=== PATIENT | male | born 1960 | race African-American/Black ===

== ENCOUNTER → 2021-08-17 13:13 | Outpatient (BNVA) | payer OTHER, SELFPAY | PROVIDERS: PCP Internal Medicine; Visit Provider Psychiatry & Neurology Neurology | DX: R20.0 Anesthesia of skin (principal); R20.2 Paresthesia of skin; G25.81 Restless legs syndrome | CPT/HCPCS: 99202 ==

== ENCOUNTER → 2022-02-11 07:45 | Outpatient (BNVA) | payer OTHER, SELFPAY | PROVIDERS: PCP Internal Medicine; Visit Provider Psychiatry & Neurology Neurology | DX: G25.81 Restless legs syndrome (principal); R20.0 Anesthesia of skin; R20.2 Paresthesia of skin | CPT/HCPCS: 99212 ==

== ENCOUNTER → 2022-08-09 08:28 | Outpatient (BNVA) | payer OTHER, SELFPAY | PROVIDERS: PCP Internal Medicine; Visit Provider Nurse Practitioner Family | DX: R20.0 Anesthesia of skin (principal); R20.2 Paresthesia of skin; G25.81 Restless legs syndrome | CPT/HCPCS: 99212 ==

== ENCOUNTER 2023-03-02 09:00 | Outpatient (AMB) | payer OTHER, SELFPAY ==
--- NOTE | 2023-03-02 09:02 | A.OFFVIS_ITS ---
Intake Vital Signs 03/02/23 09:05 Weight 264 lb BP 128/82 Blood Pressure Location Lt brachial Position Sitting Intake Visit Reasons: 6 mnts f/u appt-LVM Intake Note: Patient presents for 6 month follow up. Patient states I still got numbness on the right leg all the way down. Allergies ibuprofen [From Motrin] Adverse Reaction (Mild, Verified 03/02/23 09:06) Gastrointestinal Upset percaset Adverse Reaction (Uncoded 03/02/23 09:06) upset stomach HPI HPI Comments History of Present Illness Details 61 y/o female with h/o diabetes for more than 25 years comes for follow up of her lower extremity numbness. Pt reports that gabapentin 300 mg qHS helps some restless legs at night and occasional shooting pain in her bilateral lower extremities. EMG was c/w right L5 S1 radiculopathy and left S 1 radiculopathy. Lumbar X ray result was no acute findings. There is degenerative disc disease at the L2-3, L3-4 and L5-S1 levels. She has arthritis of her back and was treated with cortisone shot 3 years ago. She denies any weakness. Her diabetes is well controlled. [facility] Medical History Arthritis Diabetes Glaucoma Heart attack HTN (hypertension) Hyperlipidemia Hyperlipidemia Obesity JAI on CPAP Restless legs syndrome (RLS) Thyroid activity decreased Vitamin D deficiency Surgical History Stented coronary artery Hx of heart surgery History of carpal tunnel release Family History Father Cancer Mother Heart disease HTN (hypertension) Brother HTN (hypertension) Sister Breast cancer Family/Other No problems noted. Social History Alcohol intake: never Patient Tobacco Use Status: Former Tobacco user Review of Systems Const All systems reviewed & are unremarkable except as noted in HPI and below Neuro Reports Sensory deficit (Neuro) Physical Exam Vital Signs: Last Vital Signs BP 128/82 03/02/23 09:05 Const General: cooperative, healthy appearing and comfortable Nutritional Appearance: obese Orientation/consciousness: patient oriented x3 HEENT Other: Mallampatti grade 4 Head: Yes normal to inspection and Yes normocephalic Eyes Pupils: Equal, round and reactive pupils present Neuro General: patient oriented x3, gait normal, tone normal, moves all extremities, no focal motor deficits and CN's II-XI intact bilaterally Cranial nerves: Yes Equal, round and reactive pupils present, Yes Bilaterally intact EOM present, Yes Nystagmus not present, Yes Normal facial strength present and Yes Midline tongue present Gait exam (Neuro): Normal gait present Motor exam (neuro): 5/5 motor strength present throughout, Pronator motor function not present, no tremor noted and Normal motor muscle tone present throughout Sensory Exam: Sensory deficit (Neuro) and Abnormal lower extremity sensory exam Deep tendon reflexes (DTR's): Right triceps reflex intensity grade: 1+, Left triceps reflex intensity grade: 1+, Rt Biceps (C5, C6): 1+, Left biceps reflex intensity grade: 1+, Right brachioradialis reflex intensity grade: 1+, Left brachioradialis reflex intensity grade: 1+, Right patellar reflex intensity grade: 1+, Left patellar reflex intensity grade: 1+, Right ankle reflex intensity grade: 0 and Left ankle reflex intensity grade: 0 Coordination: [id number] test normal Psych Appearance: grossly normal Mental Status: mental status grossly normal Speech and movement: Normal speech and movement present Assessment & Plan Assessment & Plan (1) Restless legs syndrome (RLS): Code(s): G25.81 - Restless legs syndrome (2) Numbness and tingling of both feet: Code(s): R20.0 - Anesthesia of skin; R20.2 - Paresthesia of skin Plan Discussed EMG and lumbar X ray results. Continue to take gabapentin 100mg 3 tabs qHS. Advised patient to check labs, vitamin B12 and folate to check any dificiency. Advised well diabetes control. Orders: Orders Vitamin B12 and Folate 03/02/23 G25.81 - Restless legs syndrome, R20.0 - Anesthesia of skin, R20.2 - Paresthesia of skin Coding Level of Care Code Est Pt Level 3 (46219) Diagnoses Restless legs syndrome (RLS) G25.81 Numbness and tingling of both feet R20.0; R20.2
[2023-03-02 09:05] VITALS: BP 128/82
== END 2023-03-02 09:28 | disposition home or self-care (01) ==
PROVIDERS: PCP Internal Medicine; Visit Provider Nurse Practitioner Family
DX: G25.81 Restless legs syndrome (principal); R20.0 Anesthesia of skin; R20.2 Paresthesia of skin
CPT/HCPCS: 99213

== ENCOUNTER → 2023-03-02 09:00 | Outpatient (BNVA) | payer OTHER, SELFPAY | PROVIDERS: PCP Internal Medicine; Visit Provider Nurse Practitioner Family | DX: G25.81 Restless legs syndrome (principal); R20.0 Anesthesia of skin; R20.2 Paresthesia of skin | CPT/HCPCS: 99212 ==

== ENCOUNTER 2023-09-01 08:30 | Outpatient (AMB) | payer OTHER, SELFPAY ==
--- NOTE | 2023-09-01 08:50 | A.OFFVIS_ITS ---
Vital Signs 09/01/23 08:56 Height 5 ft 5 in Weight 275 lb BMI 45.8 BP 132/80 Blood Pressure Location Lt brachial Position Sitting Pulse 78 Pulse Source Pulse Oximeter Pulse Oximetry (%) 100 Oxygen Delivery Method Room Air Intake Visit Reasons: 6 mo f/u Lower extremities numbness -LVM w/add Intake Note: Patient presents for 6 months f/u. still having numbness on both legs but right side is worse. Allergies ibuprofen [From Motrin] Adverse Reaction (Mild, Verified 03/02/23 09:06) Gastrointestinal Upset percaset Adverse Reaction (Uncoded 03/02/23 09:06) upset stomach HPI Comments Details: 62 y/o female with h/o diabetes for follow up of her lower extremity numbness and restless legs. Pt reports that gabapentin 300 mg qHS helps some restless legs at night and occasional shooting pain in her bilateral lower extremities. However, she still has occasional numbness when she walks long distance. EMG was c/w right L5 S1 radiculopathy and left S 1 radiculopathy. Lumbar X ray result was no acute findings. There is degenerative disc disease at the L2-3, L3-4 and L5-S1 levels. She has arthritis of her back and was treated with cortisone shot 3 years ago. Her back pain has improved after the cortisone injection and did not need to have repeat injection. She denies any weakness. Her diabetes is well controlled. She reports she has hx of sleep apnea and compliant with CPAP. [facility] Medical History Arthritis Diabetes Glaucoma Heart attack HTN (hypertension) Hyperlipidemia Hyperlipidemia Obesity JAI on CPAP Restless legs syndrome (RLS) Thyroid activity decreased Vitamin D deficiency Surgical History Stented coronary artery Hx of heart surgery History of carpal tunnel release Family History Father Cancer Mother Heart disease HTN (hypertension) Brother HTN (hypertension) Sister Breast cancer Family/Other No problems noted. Social History Alcohol intake: never Patient Tobacco Use Status: Former Tobacco user Review of Systems Const All systems reviewed & are unremarkable except as noted in HPI and below Neuro Reports Sensory deficit (Neuro) Physical Exam Vital Signs: Last Vital Signs Pulse 78 09/01/23 08:56 BP 132/80 09/01/23 08:56 Pulse Ox 100 09/01/23 08:56 Oxygen Delivery Method Room Air 09/01/23 08:56 BMI result Body Mass Index 45.8 Const General: cooperative, healthy appearing and comfortable Nutritional Appearance: obese Orientation/consciousness: patient oriented x3 HEENT Other: Mallampatti grade 4 Head: Yes normal to inspection and Yes normocephalic Eyes Pupils: Equal, round and reactive pupils present Neuro General: patient oriented x3, gait normal, tone normal, moves all extremities, no focal motor deficits and CN's II-XI intact bilaterally Cranial nerves: Yes Equal, round and reactive pupils present, Yes Bilaterally intact EOM present, Yes Nystagmus not present, Yes Normal facial strength present and Yes Midline tongue present Gait exam (Neuro): Normal gait present Motor exam (neuro): 5/5 motor strength present throughout, Pronator motor function not present, no tremor noted and Normal motor muscle tone present throughout Sensory Exam: Sensory deficit (Neuro) and Abnormal lower extremity sensory exam Deep tendon reflexes (DTR's): Right triceps reflex intensity grade: 1+, Left triceps reflex intensity grade: 1+, Rt Biceps (C5, C6): 1+, Left biceps reflex intensity grade: 1+, Right brachioradialis reflex intensity grade: 1+, Left brachioradialis reflex intensity grade: 1+, Right patellar reflex intensity grade: 1+, Left patellar reflex intensity grade: 1+, Right ankle reflex intensity grade: 0 and Left ankle reflex intensity grade: 0 Coordination: [id number] test normal Psych Appearance: grossly normal Mental Status: mental status grossly normal Speech and movement: Normal speech and movement present Assessment & Plan Assessment & Plan (1) Restless legs syndrome (RLS): Code(s): G25.81 - Restless legs syndrome Category: Medical (2) Numbness and tingling of both feet: Code(s): R20.0 - Anesthesia of skin; R20.2 - Paresthesia of skin Category: Medical Plan Continue to take gabapentin 100mg 3 tabs qHS. Advised well diabetes control. Wt reduction advised. Medications: Refilled gabapentin 100 - 300 mg (1 - 3 x 100 mg) PO BEDTIME 90 caps 6RF Coding Level of Care Code Est Pt Level 3 (37116) Diagnoses Restless legs syndrome (RLS) G25.81 Numbness and tingling of both feet R20.0; R20.2
[2023-09-01 08:56] VITALS: BP 132/80; PULSE 78; O2SAT 100; BMI 45.8
== END 2023-09-01 09:11 | disposition home or self-care (01) ==
PROVIDERS: PCP Internal Medicine; Visit Provider Nurse Practitioner Family
DX: G25.81 Restless legs syndrome (principal); R20.0 Anesthesia of skin; R20.2 Paresthesia of skin
CPT/HCPCS: 99213

== ENCOUNTER → 2023-09-01 08:30 | Outpatient (BNVA) | payer OTHER, SELFPAY | PROVIDERS: PCP Internal Medicine; Visit Provider Nurse Practitioner Family | DX: G25.81 Restless legs syndrome (principal); R20.0 Anesthesia of skin; R20.2 Paresthesia of skin | CPT/HCPCS: 99212 ==

== ENCOUNTER 2024-03-08 08:47 | Outpatient (AMB) | payer OTHER, SELFPAY ==
--- NOTE | 2024-03-08 08:58 | A.OFFVIS_ITS ---
Vital Signs 03/08/24 08:59 Height 5 ft 5 in Weight 280 lb BMI 46.6 BP 154/86 H Blood Pressure Location Rt brachial Position Sitting Intake Visit Reasons: 6 month F/U Intake Note: Patient presents for follow up still getting numbness, spasms. Allergies ibuprofen [From Motrin] Adverse Reaction (Mild, Verified 03/08/24 09:05) Gastrointestinal Upset percaset Adverse Reaction (Uncoded 03/08/24 09:05) upset stomach Medication List - Last Reconciled 03/08/24 by ENOC Rutherford aspirin (Adult Low Dose Aspirin) 81 mg PO DAILY blood-glucose meter ([employer] [place] Lite kit) As directed coenzyme Q10 (Ultra CoQ10) 100 mg PO DAILY gabapentin 100 - 300 mg (1 - 3 x 100 mg) PO BEDTIME labetalol 300 mg PO BID labetalol 100 mg PO ONCE lancets (FreeStyle Lancets) As directed latanoprost 0.005% (Xalatan) 1 drp ophthalmic (eye) DAILY levothyroxine 50 mcg PO DAILY lisinopril 40 mg PO DAILY metformin 500 mg PO DAILY nifedipine ER 60 mg PO DAILY rosuvastatin (Crestor) 40 mg PO DAILY HPI Comments Details: 63 y/o female with h/o diabetes for follow up of her lower extremity numbness and restless legs. Pt denies any significant interval medical changes. States her home blood sugars are WNL, but last HgA1C was 6.9%. Is still compliant w/ home CPAP- managed by Dr Altamirano. Pt states did previous labs at [facility]- but I am unable to see any relevant results in her [facility] portal. She describes her restless legs as BLE legs and feet pins and needles and bee sting/stabbing, as well as numbness. She cannot not sit still for prolonged periods. Her feet easily fall asleep or become numb when walking or doing the dishes. She has fallen because her foot has gone numb while walking. She can feel off-balance when her eyes are closed. Does have bothersome low back pain- tends to stay in the center of low back- not worse in any particular position. Endorses BLE R > L - weakness at times. Has not done PT specifically for her back. Endorses constipation. Denies B&B incontinence. Using Gabapentin 100mg qam and 200mg qhs. Gapapentin helps w/ the apin s/s but not the numbness. She wonders if this is causing her to shake- she finds herself shaking when writing or carrying something. Her mother aunt, and now sister shake. Pt does not drink alcohol- thus does not know if tremor is alcohol responsive. Previous work-up and tx: 11/27/2021: EMG was c/w right L5 S1 radiculopathy and left S 1 radiculopathy. 02/12/2022: Lumbar X ray result was no acute findings. There is degenerative disc disease at the L2-3, L3-4 and L5-S1 levels. She has arthritis of her back and was treated with cortisone shot several yrs ago, was previously helpful where she could move better w/o the pain. [facility] Medical History (Updated 03/08/24 @ 14:48 by ENOC Rutherford) Anemia Restless legs syndrome (RLS) Heart attack Thyroid activity decreased Hyperlipidemia Arthritis Obesity Vitamin D deficiency Hyperlipidemia Glaucoma HTN (hypertension) JAI on CPAP Diabetes Surgical History Stented coronary artery Hx of heart surgery History of carpal tunnel release Family History Father Cancer Mother Heart disease HTN (hypertension) Brother HTN (hypertension) Sister Breast cancer Family/Other No problems noted. Social History Alcohol intake: never Patient Tobacco Use Status: Former Tobacco user Physical Exam Vital Signs: Last Vital Signs BP 154/86 H 03/08/24 08:59 BMI result Body Mass Index 46.6 Const General: cooperative, healthy appearing and comfortable Nutritional Appearance: obese Orientation/consciousness: patient oriented x3 HEENT Other: Mallampatti grade 4 Head: Yes normal to inspection and Yes normocephalic Neuro Other: FFM intact. Lower lumbar spinal tenderness-. BLE MS 5/5 BLE R > L ankle tightness Stands slowly. Mild antalgic gait- slight right high step. General: patient oriented x3 and CN's II-XI intact bilaterally Cranial nerves: Yes CN's II-XII intact bilaterally Motor exam (neuro): 5/5 motor strength present throughout and no tremor noted Deep tendon reflexes (DTR's): Right patellar reflex intensity grade: 1+ and Left patellar reflex intensity grade: 1+ Psych Appearance: grossly normal Mental Status: mental status grossly normal Speech and movement: Normal speech and movement present Assessment & Plan Assessment & Plan (1) Numbness and tingling of both feet: Code(s): R20.0 - Anesthesia of skin; R20.2 - Paresthesia of skin Category: Medical (2) Low back pain: Code(s): M54.50 - Low back pain, unspecified Category: Medical (3) Low back pain: Code(s): M54.50 - Low back pain, unspecified Category: Medical (4) Tremor: Code(s): R25.1 - Tremor, unspecified Category: Medical Plan For BLE neuropathic pain, numbness and low back pain: Will increase Gabapentin to 200mg qam and 200-300mg qhs- may help tremor as well. XR Lumbar. Check labs for common etiologies of paresthesias and numbness. PT eval & tx for low back pain and BLE tightness- may help w/ numbness triggered by walking etc. For tremor: Will monitor. Try using weighted/thicker writing utensils. Orders: Orders Creatine Kinase Total Today D64.9 - Anemia, unspecified, R20.0 - Anesthesia of skin, R20.2 - Paresthesia of skin, R25.2 - Cramp and spasm Comprehensive Met. Panel Today D64.9 - Anemia, unspecified, R20.0 - Anesthesia of skin, R20.2 - Paresthesia of skin, R25.2 - Cramp and spasm Magnesium Today D64.9 - Anemia, unspecified, R20.0 - Anesthesia of skin, R20.2 - Paresthesia of skin, R25.2 - Cramp and spasm IRON PROFILE Today D64.9 - Anemia, unspecified, R20.0 - Anesthesia of skin, R20.2 - Paresthesia of skin, R25.2 - Cramp and spasm Vitamin B12 and Folate Today D64.9 - Anemia, unspecified, R20.0 - Anesthesia of skin, R20.2 - Paresthesia of skin, R25.2 - Cramp and spasm Vitamin B6 Today D64.9 - Anemia, unspecified, R20.0 - Anesthesia of skin, R20.2 - Paresthesia of skin, R25.2 - Cramp and spasm CRP High Sensitivity Today D64.9 - Anemia, unspecified, R20.0 - Anesthesia of skin, R20.2 - Paresthesia of skin, R25.2 - Cramp and spasm Homocysteine Today D64.9 - Anemia, unspecified, R20.0 - Anesthesia of skin, R20.2 - Paresthesia of skin, R25.2 - Cramp and spasm XR lumbar spine 2-3V Today M54.50 - Low back pain, unspecified Ferritin Today D64.9 - Anemia, unspecified, R20.0 - Anesthesia of skin, R20.2 - Paresthesia of skin, R25.2 - Cramp and spasm Complete Blood Count Auto Diff Today D64.9 - Anemia, unspecified, R20.0 - Anes thesia of skin, R20.2 - Paresthesia of skin, R25.2 - Cramp and spasm Erythrocyte Sedimentation Rate Today D64.9 - Anemia, unspecified, R20.0 - Anesthesia of skin, R20.2 - Paresthesia of skin, R25.2 - Cramp and spasm Methylmalonic Acid Today D64.9 - Anemia, unspecified, R20.0 - Anesthesia of skin, R20.2 - Paresthesia of skin, R25.2 - Cramp and spasm PT Evaluation and Treatment Today M54.50 - Low back pain, unspecified, R20.0 - Anesthesia of skin, R20.2 - Paresthesia of skin Medications: Changed From gabapentin 100 - 300 mg (1 - 3 x 100 mg) PO BEDTIME 90 caps 6RF To gabapentin 200mg qam and 300mg at bedtime orally 2 times a day; 30 days 150 caps 6RF Coding Level of Care Code Est Pt Level 4 (61276) Diagnoses Numbness and tingling of both feet R20.0; R20.2 Low back pain M54.50 Tremor R25.1
[2024-03-08 08:59] VITALS: BP 154/86; BMI 46.6
== END 2024-03-08 10:00 | disposition home or self-care (01) ==
LOC: HO.HSMS 08:48
PROVIDERS: PCP Internal Medicine; Visit Provider Nurse Practitioner Family
DX: R20.0 Anesthesia of skin (principal); R20.2 Paresthesia of skin; M54.50 Low back pain, unspecified; R25.1 Tremor, unspecified
CPT/HCPCS: 99214

== ENCOUNTER → 2024-03-08 08:47 | Outpatient (BNVA) | payer OTHER, SELFPAY | PROVIDERS: PCP Internal Medicine; Visit Provider Nurse Practitioner Family | DX: M54.50 Low back pain, unspecified (principal); R25.1 Tremor, unspecified; R20.0 Anesthesia of skin; R20.2 Paresthesia of skin | CPT/HCPCS: 99212 ==

== ENCOUNTER 2024-03-30 09:40 | Outpatient (REF) | payer OTHER, SELFPAY ==
--- NOTE | ~2024-03-30 | XR_ITS ---
EXAMINATION: XR LUMBAR SPINE CLINICAL INFORMATION: Low back pain, unspecified M54.50. COMPARISON: None available TECHNIQUE: Three views of the lumbosacral spine. FINDINGS: Vertebral body heights are preserved without evidence of compression deformity. Moderate to severe degenerative disc disease greatest at L5-S1 and L3-L4. Facet arthropathy throughout the lumbar spine greatest in the lower lumbar spine. Multilevel bony spurring. Degenerative changes in the sacroiliac joints. XR/XR lumbar spine 2-3V IMPRESSION: Moderate to severe degenerative disc disease greatest at L5-S1 and L3-L4. Electronically signed by: Campbell Vazquez MD 05/01/2024 09:58 AM [facility]
[2024-03-30 10:50] LABS: MANUAL DIFF FLAG NO
[2024-03-30 11:42] LABS: Hematocrit 40.2 % (37.0-47.0); Hemoglobin 12.8 g/dl (12.0-16.0); Mean Corpuscular HGB Conc 31.8 g/dl (31.0-35.0); Mean Corpuscular Hemoglobin 28.7 pg (27.0-33.0); Mean Corpuscular Volume 90.1 fL (80.0-98.0); Red Blood Count 4.46 X10*6/uL (4.20-5.50); White Blood Count 5.4 X10*3/uL (4.8-10.8)
[2024-03-30 11:43] LABS: Basophils Absolute Auto 0.1 X10*3/uL (0.0-0.2); Basophils Percent Auto 1.1 % (0-2); Eosinophils Absolute Auto 0.3 X10*3/uL (0.0-0.4); Eosinophils Percent Auto 5.1 % (0-4); Imm Gran Abs Auto 0.01 X10*3/uL (0.00-0.03); Imm Gran Pct Auto 0.2 % (0.0-0.4); Lymphocytes Absolute Auto 1.5 X10*3/uL (1.2-4.9); Mean Platelet Volume 11.4 fL (9.4-12.3); Monocytes Absolute Auto 0.6 X10*3/uL (0.1-1.2); Monocytes Percent Auto 11.2 % (2-11); Neutrophils Percent Auto 55.4 % (45-73); Platelet Count 282 X10*3/uL (160-400); Red Cell Distribution Width 15.3 % (11.0-16.0)
[2024-03-30 12:20] LABS: Alanine Aminotransferase 36 U/L (0-31); Albumin Level 4.3 g/dL (3.5-5.0); Alkaline Phosphatase 74 U/L (39-117); Anion Gap 12 (12-20); Aspartate Amino Transferase 31 U/L (5-31); Bilirubin Total 0.4 mg/dL (0.0-1.0); Blood Urea Nitrogen 11 mg/dL (9-16); Calcium 9.6 mg/dL (8.4-10.2); Carbon Dioxide 26 mmol/L (22-29); Chloride 105 mmol/L (96-108); Estimated Glomerular Filt Rate > 60; Glucose Random 106 mg/dL (60-115); Iron 80 mcg/dL (30-160); Magnesium 2.1 mg/dL (1.6-2.6); Percent Iron Saturation 35 % (15-50); Potassium 4.2 mmol/L (3.3-5.1); Sodium 139 mmol/L (135-145); Total Iron Binding Capacity 228 mcg/dL (228-428); Total Protein 7.3 g/dL (6.5-8.0); Unsaturated Iron Binding 148 ug/dL
[2024-03-30 12:32] LABS: Erythrocyte Sedimentation Rate 23 MM/HR (0-20)
[2024-03-30 12:36] LABS: Ferritin 289 ng/mL (10-250)
[2024-03-30 12:44] LABS: Folate 8.4 ng/mL (> or = 4.0); Vitamin B12 993 pg/mL (200-900)
[2024-04-02 08:29] LABS: CRP High Sensitivity 5.9 mg/L
[2024-04-02 17:04] LABS: Homocysteine 11.7 umol/L (<10.4)
[2024-04-04 12:23] LABS: Methylmalonic Acid 97 nmol/L (69-390)
[2024-04-07 16:44] LABS: Vitamin B6 4.8 ng/mL (2.1-21.7)
== END 2024-03-30 09:41 | disposition home or self-care (01) ==
LOC: HO.HMGCX 09:40
PROVIDERS: PCP Internal Medicine; Visit Provider Nurse Practitioner Family
DX: M54.50 Low back pain, unspecified (principal); D64.9 Anemia, unspecified; R25.2 Cramp and spasm; R20.0 Anesthesia of skin; R20.2 Paresthesia of skin; M51.369 Other intervertebral disc degeneration, lumbar region without mention of lumbar back pain or lower extremity pain; M51.379 Other intervertebral disc degeneration, lumbosacral region without mention of lumbar back pain or lower extremity pain
CPT/HCPCS: 36415; 72100; 80053; 82550; 82607; 82728; 82746; 83090; 83540; 83735; 83921; 84207; 85025; 85652; 86141

== ENCOUNTER 2024-09-20 10:21 | Outpatient (AMB) | payer OTHER, SELFPAY ==
[2024-09-20 10:29] VITALS: BP 170/60; PULSE 89; O2SAT 97; BMI 47.3
--- NOTE | 2024-09-20 10:29 | A.OFFVIS_ITS ---
Vital Signs 09/20/24 10:29 Height 5 ft 5 in Weight 284 lb BMI 47.3 BP 170/60 H Blood Pressure Location Lt brachial Position Sitting Pulse 89 Pulse Source Pulse Oximeter Pulse Oximetry (%) 97 Oxygen Delivery Method Room Air Intake Visit Reasons: Follow Up 4mo Intake Note: Patient presents follow up for numbness and muscle spasms [employer] Required: No Accompanied by: Self / Same As Patient Allergies ibuprofen [From Motrin] Adverse Reaction (Mild, Verified 09/20/24 10:32) Gastrointestinal Upset percaset Adverse Reaction (Uncoded 03/08/24 09:05) upset stomach Medication List - Last Reconciled 09/20/24 by ENOC Rutherford aspirin (Adult Low Dose Aspirin) 81 mg PO DAILY blood-glucose meter ([employer] [place] Lite kit) As directed coenzyme Q10 (Ultra CoQ10) 100 mg PO DAILY gabapentin 200mg qam and 300mg at bedtime orally 2 times a day; 30 days labetalol 300 mg PO BID labetalol 100 mg PO ONCE lancets (FreeStyle Lancets) As directed latanoprost 0.005% (Xalatan) 1 drp ophthalmic (eye) DAILY levothyroxine 50 mcg PO DAILY lisinopril 40 mg PO DAILY metformin 500 mg PO DAILY nifedipine ER 60 mg PO DAILY rosuvastatin (Crestor) 40 mg PO DAILY HPI Comments Details: 63 y/o female with h/o diabetes for follow up of her lower extremity numbness and restless legs. 03/30/2024, XR/XR lumbar spine 2-3V: Moderate to severe degenerative disc disease greatest at L5-S1 and L3-L4. 03/30/2024 interval lab work, showed: * CBC within normal limits * ESR 23 elevated * CMP within normal limits * Ferritin 289 slightly elevated, with normal iron studies * CK 409, elevated * High sensitivity CRP 5.9, elevated * Vitamin B12 993 * Folate 8.4 * Vitamin B6 4.8 * Homocystine 11.7, slightly elevated Pt denies any significant interval medical changes. Her BP is elevated today- 170/60- states she took her home BP meds this am. Her BP is prone to being variable. Is still compliant w/ home CPAP- managed by Dr Altamirano. Sleeps w/ 1.5 pillows- for her back and her breathing. Denies SOB, chest pain, palpitations, peripheral swelling. She continues to have BLE restless leg symptoms- feet pins and needles and bee sting/stabbing, numbness, leg cramps, restlessness- she cannot not sit still for prolonged periods. Her feet easily fall asleep or become numb when walking or doing the dishes. She can feel off-balance when her eyes are closed. She does not have calf cramps while walking. Does have bothersome low back pain- tends to stay in the center of low back- not worse in any particular position. Endorses BLE R > L - weakness at times. Endorses constipation. Denies B&B incontinence. Tremor is stable- intermittent, more so when writing or carrying something heavier. Pt does not drink alcohol- thus does not know if tremor is alcohol responsive. She increased Gabapentin to 200mg qam and 300mg at 7:30-8pm- has not seemed the muscle cramps/spasms- which start 10-20 minutes after laying down. Typical bedtime varies between 8-9pm, and wake-up time 5-6am. She started PT- not sure if it is helping yet. Previous work-up and tx: 11/27/2021: EMG was c/w right L5 S1 radiculopathy and left S 1 radiculopathy. 02/12/2022: Lumbar X ray result was no acute findings. There is degenerative disc disease at the L2-3, L3-4 and L5-S1 levels. She has arthritis of her back and was treated with cortisone shot several yrs ago, was previously helpful where she could move better w/o the pain. [facility] Medical History (Updated 03/08/24 @ 14:48 by ENOC Rutherford) Anemia Restless legs syndrome (RLS) Heart attack Thyroid activity decreased Hyperlipidemia Arthritis Obesity Vitamin D deficiency Hyperlipidemia Glaucoma HTN (hypertension) JAI on CPAP Diabetes Surgical History Stented coronary artery Hx of heart surgery History of carpal tunnel release Family History Father Cancer Mother Heart disease HTN (hypertension) Brother HTN (hypertension) Sister Breast cancer Family/Other No problems noted. Social History (Reviewed 09/20/24 @ 10:30 by ROBBIN Molina Alcohol intake: never Patient Tobacco Use Status: Former Tobacco user Physical Exam Vital Signs: Last Vital Signs Pulse 89 09/20/24 10:29 BP 170/60 H 09/20/24 10:29 Pulse Ox 97 09/20/24 10:29 Oxygen Delivery Method Room Air 09/20/24 10:29 BMI result Body Mass Index 47.3 Const General: cooperative, healthy appearing and comfortable Nutritional Appearance: obese Orientation/consciousness: patient oriented x3 HEENT Other: Mallampatti grade 4 Head: Yes normal to inspection and Yes normocephalic Resp Effort & Inspection: normal respiratory effort and able to speak in complete sentences Auscultation: clear to auscultation bilaterally Cardio Rate: regular rate Rhythm: regular rhythm Neuro Other: FFM intact. No postural or rest tremor appreciated. General: patient oriented x3 and CN's II-XI intact bilaterally Cranial nerves: Yes CN's II-XII intact bilaterally Motor exam (neuro): 5/5 motor strength present throughout and no tremor noted Psych Appearance: grossly normal Mental Status: mental status grossly normal Speech and movement: Normal speech and movement present Assessment & Plan Assessment & Plan (1) Restless legs syndrome (RLS): Code(s): G25.81 - Restless legs syndrome Category: Medical (2) HTN (hypertension): Code(s): I10 - Essential (primary) hypertension Category: Medical (3) Numbness and tingling of both feet: Code(s): R20.0 - Anesthesia of skin; R20.2 - Paresthesia of skin Category: Medical (4) Low back pain: Code(s): M54.50 - Low back pain, unspecified Category: Medical (5) Tremor: Code(s): R25.1 - Tremor, unspecified Category: Medical (6) Muscle cramps: Code(s): R25.2 - Cramp and spasm Category: Medical Plan For HTN: On BP recheck, with patient sitting quietly for greater than 5 minutes, BP is still 170/60s. Patient advised to take extra half tab of lisinopril today. Advised to seek medical attention she develops any chest pain, shortness of breath, or other red flag symptoms. We will take the liberty of referring patient back to nephrology for BP management. For BLE neuropathic pain, numbness, muscle cramps-,- and low back pain: Reviewed labs, no significant findings to account for patient's symptoms. Reviewed XR lumbar spine- Moderate to severe degenerative disc disease greatest at L5-S1 and L3-L4. Will increase Gabapentin from 200mg qam and 300mg qhs to 200mg bid at 6am and 6pm and 300mg q8pm- may help tremor as well. Start magnesium 400 mg daily at 12pm- to avoid taking it directly with gabapentin. Continue PT tx for low back pain and BLE tightness- may help w/ numbness triggered by walking etc. For tremor: Will monitor. May try using weighted/thicker writing utensils. Orders: Referrals Nephrology Referral I10 - Essential (primary) hypertension Medications: New gabapentin at 8pm 300 mg PO BEDTIME 30 caps 6RF 30 days magnesium oxide at 12pm, may hold for loose stools 400 mg PO DAILY 30 tabs 6RF 30 days Changed From gabapentin 200mg qam and 300mg at bedtime orally 2 times a day; 30 days 150 caps 6RF To gabapentin at 6am and 6pm 200 mg (2 x 100 mg) PO BID 120 caps 6RF 30 days Coding Level of Care Code Est Pt Level 4 (38027) Diagnoses Restless legs syndrome (RLS) G25.81 HTN (hypertension) I10 Numbness and tingling of both feet R20.0; R20.2 Low back pain M54.50 Tremor R25.1 Muscle cramps R25.2
--- OUTSIDE RECORDS SUMMARY | 2024-09-20 11:26 | XMS_ITS ---
[facility] Address [address] [place] [address] Care Team Providers Care Senior Sql Developer Name Role Phone Humberto Sarabia Primary Care Provider Anthony Diop [phone] REASON FOR VISIT Foot pain Encounters Encounter Location Date [facility] [address] [place] [phone] 05/04/2024 Anthony Morrow Plan Of Treatment Next Appt Details Provider Name:Anthony Morrow , 11/21/2024 08:30:00 AM, [address], [address], Progress Notes * Nancy MORALES LDOB:[birth year] (63 yo F)Acc No.[id number]:05/04/2024 Patient:?MARGARET Nancy Coyle :1960???Age:63 Y???Sex:Female Address:[address] [place] [address], [phone] * true * Date:? Generated for Careyi miriam/Raymond/eTransmitting on:?09/20/2024 11:26 AM EDT
--- OUTSIDE RECORDS SUMMARY | 2024-09-20 11:26 | XMS_ITS | Patient Health Record ---
Author Organization [facility] Nery arndt [place] Address [address] [place] [address] Care Team Providers Care Framing Machine Tender Name Role Phone Humberto Sarabia Primary Care Provider Anthony Diop Unavailable [phone] Allergies Allergen (clinical drug ingredient) Drug/Non Drug Allergy documented on EMR Reaction Allergy Type Onset Date Status Motrin upset stomach Drug Allergy Act willis acetaminophen / oxycodone Percocet Unknown Drug Allergy Active Results Component Value Reference Range Notes HEMOGLOBIN A1C (GLYCOHEMOGLO BIN) Reviewed date:07/25/2024 08:29:47 AM Interpretation: Performing Lab: Notes/Report: HEMOGLOBIN A1C % (HH) 6.9 HEMOGLOBIN A1C (GLYCOHEMOGLO BIN) Reviewed date:03/21/2024 08:43:30 AM Interpretation: Performing Lab: Notes/Report: TOTAL HEMOGLOBIN (HGBA1C) 6.9 Reason For Referral No Information Medications Medication SIG (Take, Route, Frequency, Duration) Notes Start Date End Date Status Vitamin D3 Active Trulance 3 MG 1 tablet Orally Once a day Active Gabapentin Active Rosuvastatin Calcium Active Crestor Not-Taking Pepcid Complete Acti ve Famotidine 20 MG 1 tablet at bedtime as needed Orally Once a day for 30 day(s) Not-Taking Cyclobenzaprine HCl Not-Taking Omeprazole 20 MG 1 capsule Orally Once a day 02/28/2014 Not-Taking Meloxicam Not-Taking CoQ-10 Active Labetalol HCl 300 MG take 1 tablet by mouth twice a day Oral for 90 plus 100 mg Active Ecotrin Low Strength 81 MG 1 tablet Orally Once a day Active Levothyroxine Sodium 50 MCG 1 tablet Orally Once a day 02/28/2014 Active Latanoprost Active Metformin & Diet Manage Prod 500 MG Orally 02/28/2014 Active Lisinopril 40 MG 1 tablet Orally Once a day 02/28/2014 Active Night Splint AFO - L1930 1 wear at rest for 30 days Not-Taking NIFEdipine ER 60 MG 1 tablet Orally twice a day 02/28/2014 Active Tylenol Arthritis Pain 650 MG 1 tablet as needed Orally every 8 hrs Not-Taking Extra Depth Orthopedic Shoes (1 Pair) with Customized Heat Molded Multidensity Innersoles (3 Pair) as directed Dx: NIDDM (E11.9), Hammertoe Foot Deformity (M20.41,M20.42), Preulcerative Skin Lesion(s) (L85.1) 11/16/2023 Active Vitamin D High Potency 25 MCG (1000 UT) 1 capsule Orally Once a day Not-Taking Atorvastatin Calcium 40 MG 1 tablet Orally Once a day 02/28/2014 Not-Taking Anastrozole 1 MG 1 tablet Orally Once a day 02/28/2014 Not-Taking hydrALAZINE HCl Not- Taking Chlorthalidone Not-T aking Xalatan 0.005 % 1 drop into affected eye in the evening Ophthalmic Once a day Not-Taking Immunizations Vaccine Route Administration Date Status Comme nts Influenza Unknown 12/21/2016 Administered Influenza Unknown 12/19/2017 Administered Influenza Unknown 12/26/2018 Administered Social History Tobacco Use: Social History Observation Description Date Details (start date - stop date) Never Smoker NA - NA Tobacco use other than smoking: Question Answer Notes Are you an other tobacco user? No Tobacco Control (Standard) Question Answer Notes Tobacco use: Nonsmoker Additional Findings: Tobacco non-user Current no nsmoker Problems Problem Type SNOMED Code ICD Code Onset Dates Problem Status W/U Status Risk Notes Problem Acquired hammer toe of right foot (20587796917863 05) Other hammer toe(s) (acquired), right foot (M20.41) Active confirmed Response to treatment,I mprovement Problem Acquired hammer toe of left foot (57372521589718 03) Other hammer toe(s) (acquired), left foot (M20.42) Active confirmed Response to treatment,I mprovement Problem Type 2 diabetes mellitus without complication (157814382) Type 2 diabetes mellitus without complication (E11.9) Active confirmed Vital Signs Blood pressure diastolic 72 mm Hg 07/25/2024 Height 5ft 5in in 07/25/2024 Blood pressure systolic 127 mm Hg 07/25/2024 Weight 274 lbs 07/25/2024 BMI 45.59 kg/m2 07/25/2024 Procedures Procedure Date Ordered Date Performed Result Body Sit e 56328-GZCJDXX NAIL, 6 OR MORE 11/16/2023 N/A 11693-JUSO SKIN LESIONS, OVER 4 11/16/2023 N/A 92079-FNXSFCV NAIL, 6 OR MORE 03/21/2024 N/A 95301-XIIU SKIN LESIONS, OVER 4 03/21/2024 N/A 54694-RHSZBSO NAIL, 6 OR MORE 07/25/2024 N/A 10395-TBDH SKIN LESIONS, OVER 4 07/25/2024 N/A Encounters Encounter Location Date Provider Diagnosis [address] [address] 11/16/2023 Anthony Cristhian Pain in right toe(s) M79.674 ; Tinea unguium B35.1 ; Pain in left toe(s) M79.675 ; Type 2 diabetes mellitus without complication E11.9 ; Other hammer toe(s) (acquired), left foot M20.42 and Other hammer toe(s) (acquired), right foot M20.[address] [address] 03/21/2024 Anthony Cristhian Pain in right toe(s) M79.674 ; Tinea unguium B35.1 ; Pain in left toe(s) M79.675 ; Type 2 diabetes mellitus without complication E11.9 ; Other hammer toe(s) (acquired), right foot M20.41 and Other hammer toe(s) (acquired), left foot M20.[address] [address] 07/25/2024 Anthony Cristhian Pain in right toe(s) M79.674 ; Tinea unguium B35.1 ; Pain in left toe(s) M79.675 and Type 2 diabetes mellitus without complication E11.[address] [address] 03/21/2024 Anthony Morrow [facility] [place] [address] [address] 05/04/2024 Anthonykilo JacksonCristhian Assessments Encounter Date Diagnosis (ICD Code) Assessment Notes Treatment Notes Treatment Clinical Notes Section Notes 11/16/2023 Pain in right toe(s) (ICD-10 - M79.674) 03/21/2024 Tinea unguium (ICD-10 - B35.1) 03/21/2024 Pain in right toe(s) (ICD-10 - M79.674) 07/25/2024 Pain in right toe(s) (ICD-10 - M79.674) 07/25/2024 Tinea unguium (ICD-10 - B35.1) 07/25/2024 Pain in left toe(s) (ICD-10 - M79.675) 03/21/2024 Pain in left toe(s) (ICD-10 - M79.675) 11/16/2023 Tinea unguium (ICD-10 - B35.1) 11/16/2023 Pain in left toe(s) (ICD-10 - M79.675) 03/21/2024 Type 2 diabetes mellitus without complication (ICD-10 - E11.9) 07/25/2024 Type 2 diabetes mellitus without complication (ICD-10 - E11.9) 11/16/2023 Type 2 diabetes mellitus without complication (ICD-10 - E11.9) 03/21/2024 Other hammer toe(s) (acquired), right foot (ICD-10 - M20.41) Response to treatment,Impro vement 03/21/2024 Other hammer toe(s) (acquired), left foot (ICD-10 - M20.42) Response to treatment,Impro vement 11/16/2023 Other hammer toe(s) (acquired), left foot (ICD-10 - M20.42) 11/16/2023 Other hammer toe(s) (acquired), right foot (ICD-10 - M20.41) Patient Educated with: DIABETIC FOOT CARE INSTRUCTIONS.p df (DIABETIC FOOT CARE INSTRUCTIONS.p df) Plan Of Treatment Pending Test Test Name Order Date Hemoglobin A1c 03/20/2015 X ray : Foot, right 3V 03/09/2023 37205-IKMYPBF NAIL, 6 OR MORE 03/09/2023 02739-UYIUAXZ NAIL, 6 OR MORE 11/17/2022 65848-KGVEZXF NAIL, 6 OR MORE 09/18/2015 40567-NJOPPZN NAIL, 6 OR MORE 11/16/2021 36343-OMLTQYG NAIL, 6 OR MORE 03/14/2014 07383-EKCIIGS NAIL, 6 OR MORE 05/23/2014 91120-IRAGJSD NAIL, 6 OR MORE 08/08/2014 81161-IGNVBCO NAIL, 6 OR MORE 09/20/2016 82206-CPPYNDJ NAIL, 6 OR MORE 09/19/2017 30846-YDRZWXU NAIL, 6 OR MORE 09/21/2018 27831-CLCQIDB NAIL, 6 OR MORE 11/19/2019 41063-WIIMDUK NAIL, 6 OR MORE 11/17/2020 63815-SPBJZKH NAIL, 6 OR MORE 11/16/2023 15706-VGCOTMP NAIL, 6 OR MORE 03/21/2024 71604-YVARHHX NAIL, 6 OR MORE 07/25/2024 93342-NRTQOKI NAIL, 6 OR MORE 03/20/2015 15363-Srltshxs Plate 09/18/2015 46978- Debride <25 sq cm 08/08/2014 56817- Debride <25 sq cm 05/23/2014 47995-JNCA SKIN LESIONS, OVER 4 11/18/19 21 75420-JAQB SKIN LESIONS, OVER 4 11/17/19 22 14440-UNUP SKIN LESIONS, OVER 4 11/18/19 23 91617-UCYC SKIN LESIONS, OVER 4 03/09/20 23 51413-BAGD SKIN LESIONS, OVER 4 07/26/19 25 81937-AZGH SKIN LESIONS, OVER 4 03/21/20 24 79071-RTSP SKIN LESIONS, OVER 4 11/16/19 24 Next Appt Details Provider Name:Anthony Morrow , 11/21/2024 08:30:00 AM, [address] [facility], [address], [place], [address], Insurance Providers Payer Name Payer Address Payer Phone Subscriber Number Group Number Insured Name Patient Relationship to Insured Coverage Start Date Coverage End Date [facility] [employer] Claims [address] [place] [phone] [id number] Nancy Morales Self - patient is the insured Medical (General) History Medical History History ICD Code Back,Hip,and Knee pain Cholesterol Cancer Diabetic Glaucoma Heart disease High blood pressure Reflux Thyroid disorder Measles Chicken pox Surgical History Surgery Date(Month/Year) Heart stent 2003 breast surgery 2011
--- OUTSIDE RECORDS SUMMARY | 2024-09-20 11:26 | XMS_ITS | Clinical Summary ---
Author Organization [facility] Address [address] [place] [address] Care Team Providers Care Production Operations Manager Name Role Phone Humberto Sarabia MD Primary Care Provider [phone] Surgical History Surgery Date Site/Laterality Comments CARPAL TUNNEL RELEASE Right PROCEDURE: [place] NEUROPLASTY &/TRANSPOS MEDIAN NRV CARPAL TUNNE; COMMENT: -2004 Medical History Medical History Date Comments Diabetes mellitus type 2, co ntrolled, with complications (CMS/HCC V24, CMS/HCC V28) DX:Diabetes mellitus type 2, controlled, with complications ([facility]) Essential hypertension DX:Essent ial hypertension Sleep apnea DX:Sleep apnea Glaucoma DX:Glaucoma Esophageal reflux DX:Esophageal reflux Hypothyroidism DX:Hypothyroidis m Osteoarthritis DX:Osteoarthriti s Coronary artery disease DX:Coron hugo artery disease Social History Tobacco Use Types Packs/Day Years Used Date Smoking Tobacco: Former Smokeless Tobacco: Never Alcohol Use Standard Drinks/Week Comments Yes 1 (1 standard drink = 0.6 oz pur e alcohol) Comments Unknown Sex and Gender Information Value Date Recorded Sex Assigned at Not on file Legal Sex Female 9:45 AM EST Gender Identity Not on file Sexual Orientation Not on file Obstetrics History Last Filed Vital Signs Vital Sign Reading Time Taken Comments Blood Pressure 138/80 12/06/2023 8:31 AM EDT Pulse 75 12/06/2023 8:31 AM EDT Temperature - - Respiratory Rate - - Oxygen Saturation - - Inhaled Oxygen Concentration - - Weight 127 kg (280 lb 6.4 oz) 12/06/2023 8:31 AM EDT Height 165.1 cm (5' 5 ) 12/06/2023 8:31 AM EDT Body Mass Index 46.66 12/06/2023 8:31 AM EDT Plan of Treatment Upcoming Encounters Date Type Department Care Team (Late st Contact Info) Description 12/04/2024 8:40 AM EDT Office Visit [facility] [address] [facility] [address] [place] [phone] Galina Medel NP [address] [place] [address] Health Maintenance Due Date Last Done Comments Breast Cancer Screening 1960 Diabetes: Annual GFR (Glomer ular Filtration Rate) 1960 COVID-19 Vaccine (#1) 11/05/1964 Diabetes: Annual Foot Exam 11/05/1969 Diabetes: Annual Retina Eye Exam 11/05/1969 DTaP,Tdap,and Td Vaccines (1 - Tdap) 11/05/1978 Pneumococcal Vaccine: 50+ Ye ars (1 of 2 - PCV) 11/05/1978 Pneumococcal Vaccine: Pediat rics (0 to 5 Years) and At-Risk Patients (6 to 64 Years) (1 of 2 - PCV) 11/05/1978 Zoster Vaccines (1 of 2) 11/05/1978 04/27/2018 Cervical Cancer Screening: P ap Smear 11/05/1980 RSV Immunization Adult Patie nts (1 - Risk 60-74 years 1-dose series) 2019 Cholesterol Screening (Lipid Panel) 04/17/2022 Colorectal Cancer Screening: Colonoscopy 04/17/2022 Depression Screening 04/17/2022 HIV Screening 04/17/2022 Hepatitis C Screening 04/17/2022 Medicare Annual Wellness Visit 04/17/2022 Social Influencers of Health Screening 04/17/2022 Hypertension/CHF/CAD Annual BMP Blood Test 04/18/2022 Diabetes: Annual Urine Albumin-Creatinine Ratio (uACR) 04/22/2022 Diabetes: Blood Sugar Contro l Test (HGBA1C) 04/22/2022 09/30/2017 Influenza Vaccine (Season Ended) 2025 02/08/20 19 HIB Vaccines Aged Out No longer eligi ble based on patient's age to complete this topic HPV Vaccines Aged Out No longer eligi ble based on patient's age to complete this topic Hepatitis A Vaccines Aged Out No long er eligible based on patient's age to complete this topic Hepatitis B Vaccines Aged Out No long er eligible based on patient's age to complete this topic IPV Vaccines Aged Out No longer eligi ble based on patient's age to complete this topic MMR Vaccines Aged Out No longer eligi ble based on patient's age to complete this topic Meningococcal ACWY Vaccine Aged Out N o longer eligible based on patient's age to complete this topic Meningococcal B Vaccine Aged Out No l onger eligible based on patient's age to complete this topic RSV Immunization Patients Un maximus 20 months Aged Out No longer eligible b ased on patient's age to complete this topic Varicella Vaccines Aged Out No longer eligible based on patient's age to complete this topic Insurance [employer] MEDICARE Member Subscriber Plan / Payer (Ef fective 2020-Present) Name:Nancy Morales Relation to Subscriber:Self Name:Nancy Morales Payer ID:[id number] Group ID:[id number] Type:Not on file Address: [place] [address] [place] [phone] Care Teams Production Operations Manager Relationship Specialty Start Date End Date Humberto Sarabia MD PCP - General 07/20/12
--- OUTSIDE RECORDS SUMMARY | 2024-09-20 11:26 | XMS_ITS | Patient Health Record ---
Author Organization [facility] Address [address] [place] [phone] Care Team Providers Care Public Health Staff Nurse Name Role Phone LOC MINA Unavailable [phone] CHANCE BARRON Unavailable [phone] Allergies Allergen (clinical drug ingredient) Drug/Non Drug Allergy documented on EMR Reaction Allergy Type Onset Date Status Motrin Unknown Drug Allergy Active acetaminophen / oxycodone Percocet Unknown Drug Allergy Active Results Component Value Reference Range Notes PPC Hemoglobin A1C Reviewed date:08/29/2024 08:33:02 AM Interpretation:6.7 Performing Lab: Notes/Report: 6.7 UA WITH CULTURE IF INDICATED Reviewed date:12/22/2023 12:04:22 PM Interpretation: Performing Lab: Notes/Report: Steward/Stewardess Chief [employer] - Ilana Mcclendon MD [address] [place] [address] [employer], a member of [facility] Original Ordering Provider: LOC MINA REPORTING DEVELOPER GLUCOSE, (UA) NEGATIVE NEGATIVE mg/dL BILIRUBIN, URINE NEGATIVE NEGATIVE KETONE, URINE NEGATIVE NEGATIVE mg/dL SPECIFIC GRAVITY, URINE 1.018 1.003-1.030 BLOOD, URINE NEGATIVE NEGATIVE PH, URINE 5.0 5.0-8.0 PROTEIN, URINE TRACE <= TRACE mg/dl UROBILINOGEN, URINE 0.2 0.2-1.0 E.U./dL NITRITE, URINE NEGATIVE NEGATIVE LEUKOCYTE ESTERASE, URINE NEGATIVE NEGATIVE TSH Reviewed date:12/22/2023 01:10:16 PM Interpretation: Performing Lab: Notes/Report: Steward/Stewardess Chief [employer] - Ilana Mcclendon MD [address] [place] [address] [employer], a member of [facility] TSH 1.45 0.40-4.00 uIU/ml VITAMIN D, 25-HYDROXY Reviewed date:12/22/2023 01:10:16 PM Interpretation: Performing Lab: Notes/Report: VITAMIN D, 25-HYDROXY 17 30-80 ng/mL LIPID PROFILE Reviewed date:12/22/2023 01:10:16 PM Interpretation: Performing Lab: Notes/Report: CHOLESTEROL 135 0-200 mg/dL TRIGLYCERIDES 77 0-150 mg/dL HDL CHOLESTEROL 58 >40 mg/dL LDL CALCULATED 62 0-100 mg/dL TC-HDLC RATIO 2.3 0-4.4 mg/dL COMPREHENSIVE METABOLIC PANE L Reviewed date:12/22/2023 01:10:16 PM Interpretation: Performing Lab: Notes/Report: Note Original Orderi ng Provider: LOC MINA NP GLUCOSE 144 70-100 mg/dL Reference range applicable to fasting specimens only BUN 10 5-25 mg/dL CREAT 0.89 0.5-1.1 mg/dL GLOMERULAR FILTRATION RATE 72 >60 This eGFR result was calculated using the CKD-EPI 2020 Creatinine Equation SODIUM 140 135-145 mEq/L POTASSIUM 4.6 3.5-5.5 mmol/L CHLORIDE 108 96-110 mmol/L CO2 26 21-32 mmol/L ANION GAP 6 3-11 CALCIUM 9.1 8.5-10.5 mg/dL TOTAL PROTEIN 6.8 6.0-8.0 G/dL ALBUMIN 3.8 3.2-5.0 G/dL BILI,TOTAL 0.3 0.0-1.4 mg/dL SGOT 24 10-42 U/L SGPT 37 10-60 U/L ALK PHOS 76 42-121 U/L GLYCOHEMOGLOBIN PROFILE Reviewed date:12/22/2023 02:06:59 PM Interpretation: Performing Lab: Notes/Report: Steward/Stewardess Chief [employer] - Ilana Mcclendon MD [address] [place] [address] [employer], a member of [facility] Original Ordering Provider: LOC MINA NP GLYCATED HEMOGLOBIN A1C 6.9 <6.5 % ESTIMATED AVERAGE GLUCOSE 151 CBC Reviewed date:12/22/2023 12:04:22 PM Interpretation: Performing Lab: Notes/Report: Note Original Ordering Provider: LOC MINA NP [employer], a member of [facility] [address] [address] Steward/Stewardess Chief [employer] - Ilana Mcclendon MD WBC 4.7 4.8-10.8 x10-3/uL RBC 4.3 3.8-4.8 x10-6/uL HEMOGLOBIN 12.2 11.5-16.0 g/dL HEMATOCRIT 40.1 35-47 % MCV 93.3 79-98 fL MCH 28.4 27-32 pg MCHC 30.4 32-37 g/dL RDW 15.8 11-15 % PLT COUNT 274 130-400 x10-3/uL MEAN PLATELET VOLUME 11.7 7-11 fL NRBC % AUTO 0.0 <1 % NRBC # AUTO 0.00 <0.1 x10-3/uL Note Original Ordering Provider: LOC MINA NP [employer] [address] Steward/Stewardess Chief [employer] - Ilana Mcclendon MD Reason For Referral No Information Medications Medication SIG (Take, Route, Frequency, Duration) Notes Start Date End Date Status Labetalol HCl 100 MG TAKE 1/2 TABLET BY MOUTH EVERY DAY for 90 Active Labetalol HCl 300 MG TAKE 1 TABLET BY MO UTH TWICE DAILY for 90 Active FreeStyle Lite - use to test blood oliveira gar in vitro dx e11.9 twice daily for 30 days Active NIFEdipine ER 60 MG TAKE 1 TABLET BY ALENA TH TWICE DAILY ON AN EMPTY STOMACH for 90 Active Aspirin 81 81 MG 1 tablet Orally Once a day for 30 day(s) Active Levothyroxine Sodium 50 MCG TAKE 1 TABLE T BY MOUTH EVERY DAY for 90 Active Trulance 3 MG 1 tablet Orally Once a day Active metFORMIN HCl ER 500 MG TAKE 1 TABLET BY MOUTH EVERY DAY for 90 Active CoQ-10 100 MG 1 capsule with a toni l Orally Once a day for 30 day(s) Active Lisinopril 40 MG TAKE 1 TABLET BY ALENA TH TWICE DAILY for 90 Active Xalatan 0.005 % 1 drop into affected eye in the evening Ophthalmic Once a day Active FreeStyle Lancets - use to test blood oliveira gar vitro dx e11.9 twice daily for 30 days Active Gabapentin 100 MG 1 capsule Orally Onc e a day Active Labetalol HCl 300 MG 1 tablet Orally Twi ce a day for 90 days Active Vitamin D3 125 MCG (5000 UT) 1 tablet Or ally Once a day for 90 days Active NIFEdipine ER 60 MG 1 tablet on an empty stomach Orally BID for 90 days Active Immunizations Vaccine Route Administration Date Status Comme nts influenza IM Intramuscular 02/05/2020 Administered influenza IM Intramuscular 02/12/2022 Administered Social History Tobacco Use: Social History Observation Description Date Details (start date - stop date) Former Smoker NA - NA Tobacco Use/Smoking Question Answer Notes Are you a former smoker Section Notes: Quit Smoking for a bout 1/2 pk Quit Smoking for a bout 1/2 pk Quit Smoking for a bout 1/2 pk Quit Smoking for a bout 1/2 pk Quit Smoking for a bout 1/2 pk Quit Smoking for a bout 1/2 pk Quit Smoking for a bout 1/2 pk Quit Smoking for a bout 1/2 pk Quit Smoking for a bout 1/2 pk Quit Smoking for a bout 1/2 pk Quit Smoking for a bout 1/2 pk Quit Smoking for a bout 1/2 pk Quit Smoking for a bout 1/2 pk Quit Smoking for a bout 1/2 pk Quit Smoking for a bout 1/2 pk Quit Smoking for a bout 1/2 pk Problems Problem Type SNOMED Code ICD Code Onset Dates Problem Status W/U Status Risk Notes Problem Malignant neoplasm o f female breast (955390259) Malignant neoplasm of unspecified site of unspecified female breast (C50.919) Active confirmed Problem Hypothyroidism (63413978) Hypothyroidism, unspecified (E03.9) Active confirmed Problem 91769893 Type 2 diabetes mellitus with unspecified complications (E11.8) Active confirmed Problem Type II diabetes mellitus without complication (676385132) Type 2 diabetes mellitus without complications (E11.9) Active confirmed Problem Vitamin D deficiency (34548119) Vitamin D deficiency, unspecified (E55.9) Active confirmed Problem Hyperlipidemia (76496238) Hyperlipidemia, unspecified (E78.5) Active confirmed Problem Sleep apnea (83801682) Sleep apnea, unspecified (G47.30) Active confirmed Problem Glaucoma (26614843) Unspecified glaucoma (H40.9) Active confirmed Problem Essential hypertension (08270427) Essential (primary) hypertension (I10) Active confirmed Problem Atherosclerotic hear t disease of [place] coronary artery without angina pectoris (865008258356656) Atherosclerotic heart disease of [place] coronary artery without angina pectoris (I25.10) Active confirmed Problem Adult health examination (196142681) Encounter for general adult medical examination without abnormal findings (Z00.00) Active confirmed Problem Body mass index 40+ - severely obese (256324380) Body mass index (BMI) 45.0-49.9, adult (Z68.42) Active confirmed Problem 613833380 Morbid obesity (E66.01) Active confirmed Problem Acquired hypothyroidism (293775395) Acquired hypothyroidism (E03.9) Active confirmed Problem 830247778 Lung nodule (R91.1) Active confirmed Problem Hyperlipoproteinemia (8996601) Acquired hyperlipoproteinemia (E78.5) Active confirmed Problem Adult health examination (605303574) Adult general medical exam (Z00.00) Active confirmed Problem Pain in wrist (28037562) Right wrist pain (M25.531) Active confirmed Problem 04700105 Vitamin D defici ency (E55.9) Active confirmed Problem 862743817 Body mass index [BMI] 45.0-49.9, adult (Z68.42) Active confirmed Problem 025689103 Lower extremity numbness (R20.0) Active confirmed Problem Avitaminosis D (05428601) Avitaminosis D (E55.9) Active confirmed Problem Endocrine/metabolic screening (022046597) Encounter for screening for endocrine disorder (Z13.29) Active confirmed Problem Abnormal metabolic state due to diabetes mellitus (808145669) Abnormal metabolic state due to diabetes mellitus (E11.9) Active confirmed Vital Signs Heart Rate 84 /min 08/29/2024 Oximetry 98 % 08/29/2024 Blood pressure diastolic 78 mm Hg 08/29/2024 Height 65 in 08/29/2024 Blood pressure systolic 128 mm Hg 08/29/2024 Weight 280 lbs 08/29/2024 BMI 46.59 kg/m2 08/29/2024 Encounters Encounter Location Date Provider Diagnosis [facility] [address] [facility] [address] [place] [address] 12/30/2023 LOC MINA Annual physical exam Z00.00 ; Encounter for screening for depression Z13.31 ; Encounter for screening for other disorder Z13.89 ; Type 2 diabetes mellitus without complications E11.9 ; Essential (primary) hypertension I10 ; Hyperlipidemia, unspecified E78.5 ; Sleep apnea, unspecified G47.30 ; Morbid obesity E66.01 ; Body mass index [BMI] 45.0-49.9, adult Z68.42 and Vitamin D deficiency E55.9 [place] [address] [address] 04/30/2024 LOC WALKERHOT Type 2 diabetes harjit itus without complications E11.9 ; Essential (primary) hypertension I10 ; Hyperlipidemia, unspecified E78.5 ; Sleep apnea, unspecified G47.30 ; Morbid obesity E66.01 ; Body mass index [BMI] 45.0-49.9, adult Z68.42 and Vitamin D deficiency E55.9 [place] [address] 08/29/2024 LOC KEELEY Type 2 diabetes harjit itus without complications E11.9 ; Essential (primary) hypertension I10 ; Acquired hyperlipoproteinemia E78.5 ; Morbid obesity E66.01 ; Sleep apnea, unspecified G47.30 ; Body mass index [BMI] 45.0-49.9, adult Z68.42 ; Vitamin D deficiency E55.9 and Acquired hypothyroidism E03.9 [place] [address] [address] 11/09/2023 PENDING SALE TO [facility] [address] [place] [address] 12/05/2023 [place] [address] 05/03/2024 PENDING SALE TO [facility] [address] [place] [address] 07/06/2024 [facility] [address] [place] [address] 08/03/2024 [facility] [address] [place] [address] 09/05/2024 LOC AMADEO Assessments Encounter Date Diagnosis (ICD Code) Assessment Notes Treatment Notes Treatment Clinical Notes Section Notes 12/30/2023 Encounter for screen ing for depression (ICD-10 - Z13.31) Patient presents for annual [facility] Acute Concerns/Proble m List: 12/30/2023 Chronic conditions are well controlled and stable at this time Will increase metformin to 500 mg twice daily Dermatology for skin lesion of right forearm for punch biopsy Supplement vitamin D We discussed in detail the management of diabetes mellitus. Emphasis was paid on nutrition, low carbohydrate diet with good fat and protein sources, fruits and vegetables was discussed. Exercise was recommended. Incorporation of daily walking into a routine was discussed. A pedometer goal of 10,000 steps was discussed. Management of diabetes mellitus along with medications to treat the condition was discussed. Importance of diabetic foot exam, diabetic eye exam, urine microalbumin analysis annually was discussed. Side effects of diabetic medications were discussed again. Patient agrees to take medications as prescribed and comply with lifestyle modifications. Of note, some information is being carried forward from prior records for informational purposes only and is being cited so that efficiency, safety and quality of the patient's care is not compromised This note was prepared using voice recognition software and direct typing Please excuse inadvertent waiter/waitress tavern or typing errors, or uncorrected word substitutions Although every attempt has been made by the provider to proofread this document, occasional misspellings and typographical errors may still be present Due to the previous pandemic, and the use of personal protective equipment (PPE) This may decrease voice recognition accuracy Inadvertent waiter/waitress tavern errors may occur 12/30/2023 Annual physical exam (ICD-10 - Z00.00) Patient presents for annual [facility] Acute Concerns/Proble m List: 12/30/2023 Chronic conditions are well controlled and stable at this time Will increase metformin to 500 mg twice daily Dermatology for skin lesion of right forearm for punch biopsy Supplement vitamin D We discussed in detail the management of diabetes mellitus. Emphasis was paid on nutrition, low carbohydrate diet with good fat and protein sources, fruits and vegetables was discussed. Exercise was recommended. Incorporation of daily walking into a routine was discussed. A pedometer goal of 10,000 steps was discussed. Management of diabetes mellitus along with medications to treat the condition was discussed. Importance of diabetic foot exam, diabetic eye exam, urine microalbumin analysis annually was discussed. Side effects of diabetic medications were discussed again. Patient agrees to take medications as prescribed and comply with lifestyle modifications. Of note, some information is being carried forward from prior records for informational purposes only and is being cited so that efficiency, safety and quality of the patient's care is not compromised This note was prepared using voice recognition software and direct typing Please excuse inadvertent waiter/waitress tavern or typing errors, or uncorrected word substitutions Although every attempt has been made by the provider to proofread this document, occasional misspellings and typographical errors may still be present Due to the previous pandemic, and the use of personal protective equipment (PPE) This may decrease voice recognition accuracy Inadvertent waiter/waitress tavern errors may occur 04/30/2024 Type 2 diabetes mellitus without complications (ICD-10 - E11.9) Acute Concerns/Proble m List: 04/30/2024 Hemoglobin A1c of 6.9 stable at this time continue metformin Discussed utilizing dual incretin's or single incretin GLP-1's BP stable We discussed in detail the management of diabetes mellitus. Emphasis was paid on nutrition, low carbohydrate diet with good fat and protein sources, fruits and vegetables was discussed. Exercise was recommended. Incorporation of daily walking into a routine was discussed. A pedometer goal of 10,000 steps was discussed. Management of diabetes mellitus along with medications to treat the condition was discussed. Importance of diabetic foot exam, diabetic eye exam, urine microalbumin analysis annually was discussed. Side effects of diabetic medications were discussed again. Patient agrees to take medications as prescribed and comply with lifestyle modifications. Of note, some information is being carried forward from prior records for informational purposes only and is being cited so that efficiency, safety and quality of the patient's care is not compromised This note was prepared using voice recognition software and direct typing Please excuse inadvertent waiter/waitress tavern or typing errors, or uncorrected word substitutions Although every attempt has been made by the provider to proofread this document, occasional misspellings and typographical errors may still be present Due to the previous pandemic, and the use of personal protective equipment (PPE) This may decrease voice recognition accuracy Inadvertent waiter/waitress tavern errors may occur 08/29/2024 Type 2 diabetes mellitus without complications (ICD-10 - E11.9) Acute Concerns/Proble m List: 08/29/2024 Hemoglobin A1c of 6.7 stable at this time continue metformin Getting updated mammography next month Will see her back in the end of the summer for a Medicare visit with updated comprehensive labs Of note, some information is being carried forward from prior records for informational purposes only and is being cited so that efficiency, safety and quality of the patient's care is not compromised This note was prepared using voice recognition software and direct typing Please excuse inadvertent waiter/waitress tavern or typing errors, or uncorrected word substitutions Although every attempt has been made by the provider to proofread this document, occasional misspellings and typographical errors may still be present Due to the previous pandemic, and the use of personal protective equipment (PPE) This may decrease voice recognition accuracy Inadvertent waiter/waitress tavern errors may occur 08/29/2024 Essential (primary) hypertension (ICD-10 - I10) Acute Concerns/Proble m List: 08/29/2024 Hemoglobin A1c of 6.7 stable at this time continue metformin Getting updated mammography next month Will see her back in the end of the summer for a Medicare visit with updated comprehensive labs Of note, some information is being carried forward from prior records for informational purposes only and is being cited so that efficiency, safety and quality of the patient's care is not compromised This note was prepared using voice recognition software and direct typing Please excuse inadvertent waiter/waitress tavern or typing errors, or uncorrected word substitutions Although every attempt has been made by the provider to proofread this document, occasional misspellings and typographical errors may still be present Due to the previous pandemic, and the use of personal protective equipment (PPE) This may decrease voice recognition accuracy Inadvertent waiter/waitress tavern errors may occur 04/30/2024 Essential (primary) hypertension (ICD-10 - I10) Acute Concerns/Proble m List: 04/30/2024 Hemoglobin A1c of 6.9 stable at this time continue metformin Discussed utilizing dual incretin's or single incretin GLP-1's BP stable We discussed in detail the management of diabetes mellitus. Emphasis was paid on nutrition, low carbohydrate diet with good fat and protein sources, fruits and vegetables was discussed. Exercise was recommended. Incorporation of daily walking into a routine was discussed. A pedometer goal of 10,000 steps was discussed. Management of diabetes mellitus along with medications to treat the condition was discussed. Importance of diabetic foot exam, diabetic eye exam, urine microalbumin analysis annually was discussed. Side effects of diabetic medications were discussed again. Patient agrees to take medications as prescribed and comply with lifestyle modifications. Of note, some information is being carried forward from prior records for informational purposes only and is being cited so that efficiency, safety and quality of the patient's care is not compromised This note was prepared using voice recognition software and direct typing Please excuse inadvertent waiter/waitress tavern or typing errors, or uncorrected word substitutions Although every attempt has been made by the provider to proofread this document, occasional misspellings and typographical errors may still be present Due to the previous pandemic, and the use of personal protective equipment (PPE) This may decrease voice recognition accuracy Inadvertent waiter/waitress tavern errors may occur 12/30/2023 Encounter for screen ing for other disorder (ICD-10 - Z13.89) Patient presents for annual [facility] Acute Concerns/Proble m List: 12/30/2023 Chronic conditions are well controlled and stable at this time Will increase metformin to 500 mg twice daily Dermatology for skin lesion of right forearm for punch biopsy Supplement vitamin D We discussed in detail the management of diabetes mellitus. Emphasis was paid on nutrition, low carbohydrate diet with good fat and protein sources, fruits and vegetables was discussed. Exercise was recommended. Incorporation of daily walking into a routine was discussed. A pedometer goal of 10,000 steps was discussed. Management of diabetes mellitus along with medications to treat the condition was discussed. Importance of diabetic foot exam, diabetic eye exam, urine microalbumin analysis annually was discussed. Side effects of diabetic medications were discussed again. Patient agrees to take medications as prescribed and comply with lifestyle modifications. Of note, some information is being carried forward from prior records for informational purposes only and is being cited so that efficiency, safety and quality of the patient's care is not compromised This note was prepared using voice recognition software and direct typing Please excuse inadvertent waiter/waitress tavern or typing errors, or uncorrected word substitutions Although every attempt has been made by the provider to proofread this document, occasional misspellings and typographical errors may still be present Due to the previous pandemic, and the use of personal protective equipment (PPE) This may decrease voice recognition accuracy Inadvertent waiter/waitress tavern errors may occur 12/30/2023 Type 2 diabetes mellitus without complications (ICD-10 - E11.9) Patient presents for annual [facility] Acute Concerns/Proble m List: 12/30/2023 Chronic conditions are well controlled and stable at this time Will increase metformin to 500 mg twice daily Dermatology for skin lesion of right forearm for punch biopsy Supplement vitamin D We discussed in detail the management of diabetes mellitus. Emphasis was paid on nutrition, low carbohydrate diet with good fat and protein sources, fruits and vegetables was discussed. Exercise was recommended. Incorporation of daily walking into a routine was discussed. A pedometer goal of 10,000 steps was discussed. Management of diabetes mellitus along with medications to treat the condition was discussed. Importance of diabetic foot exam, diabetic eye exam, urine microalbumin analysis annually was discussed. Side effects of diabetic medications were discussed again. Patient agrees to take medications as prescribed and comply with lifestyle modifications. Of note, some information is being carried forward from prior records for informational purposes only and is being cited so that efficiency, safety and quality of the patient's care is not compromised This note was prepared using voice recognition software and direct typing Please excuse inadvertent waiter/waitress tavern or typing errors, or uncorrected word substitutions Although every attempt has been made by the provider to proofread this document, occasional misspellings and typographical errors may still be present Due to the previous pandemic, and the use of personal protective equipment (PPE) This may decrease voice recognition accuracy Inadvertent waiter/waitress tavern errors may occur 04/30/2024 Hyperlipidemia, unspecified (ICD-10 - E78.5) Acute Concerns/Proble m List: 04/30/2024 Hemoglobin A1c of 6.9 stable at this time continue metformin Discussed utilizing dual incretin's or single incretin GLP-1's BP stable We discussed in detail the management of diabetes mellitus. Emphasis was paid on nutrition, low carbohydrate diet with good fat and protein sources, fruits and vegetables was discussed. Exercise was recommended. Incorporation of daily walking into a routine was discussed. A pedometer goal of 10,000 steps was discussed. Management of diabetes mellitus along with medications to treat the condition was discussed. Importance of diabetic foot exam, diabetic eye exam, urine microalbumin analysis annually was discussed. Side effects of diabetic medications were discussed again. Patient agrees to take medications as prescribed and comply with lifestyle modifications. Of note, some information is being carried forward from prior records for informational purposes only and is being cited so that efficiency, safety and quality of the patient's care is not compromised This note was prepared using voice recognition software and direct typing Please excuse inadvertent waiter/waitress tavern or typing errors, or uncorrected word substitutions Although every attempt has been made by the provider to proofread this document, occasional misspellings and typographical errors may still be present Due to the previous pandemic, and the use of personal protective equipment (PPE) This may decrease voice recognition accuracy Inadvertent waiter/waitress tavern errors may occur 08/29/2024 Acquired hyperlipoproteinemia (ICD-10 - E78.5) Acute Concerns/Proble m List: 08/29/2024 Hemoglobin A1c of 6.7 stable at this time continue metformin Getting updated mammography next month Will see her back in the end of the summer for a Medicare visit with updated comprehensive labs Of note, some information is being carried forward from prior records for informational purposes only and is being cited so that efficiency, safety and quality of the patient's care is not compromised This note was prepared using voice recognition software and direct typing Please excuse inadvertent waiter/waitress tavern or typing errors, or uncorrected word substitutions Although every attempt has been made by the provider to proofread this document, occasional misspellings and typographical errors may still be present Due to the previous pandemic, and the use of personal protective equipment (PPE) This may decrease voice recognition accuracy Inadvertent waiter/waitress tavern errors may occur 08/29/2024 Morbid obesity (ICD- 10 - E66.01) Acute Concerns/Proble m List: 08/29/2024 Hemoglobin A1c of 6.7 stable at this time continue metformin Getting updated mammography next month Will see her back in the end of the summer for a Medicare visit with updated comprehensive labs Of note, some information is being carried forward from prior records for informational purposes only and is being cited so that efficiency, safety and quality of the patient's care is not compromised This note was prepared using voice recognition software and direct typing Please excuse inadvertent waiter/waitress tavern or typing errors, or uncorrected word substitutions Although every attempt has been made by the provider to proofread this document, occasional misspellings and typographical errors may still be present Due to the previous pandemic, and the use of personal protective equipment (PPE) This may decrease voice recognition accuracy Inadvertent waiter/waitress tavern errors may occur 04/30/2024 Sleep apnea, unspecified (ICD-10 - G47.30) Acute Concerns/Proble m List: 04/30/2024 Hemoglobin A1c of 6.9 stable at this time continue metformin Discussed utilizing dual incretin's or single incretin GLP-1's BP stable We discussed in detail the management of diabetes mellitus. Emphasis was paid on nutrition, low carbohydrate diet with good fat and protein sources, fruits and vegetables was discussed. Exercise was recommended. Incorporation of daily walking into a routine was discussed. A pedometer goal of 10,000 steps was discussed. Management of diabetes mellitus along with medications to treat the condition was discussed. Importance of diabetic foot exam, diabetic eye exam, urine microalbumin analysis annually was discussed. Side effects of diabetic medications were discussed again. Patient agrees to take medications as prescribed and comply with lifestyle modifications. Of note, some information is being carried forward from prior records for informational purposes only and is being cited so that efficiency, safety and quality of the patient's care is not compromised This note was prepared using voice recognition software and direct typing Please excuse inadvertent waiter/waitress tavern or typing errors, or uncorrected word substitutions Although every attempt has been made by the provider to proofread this document, occasional misspellings and typographical errors may still be present Due to the previous pandemic, and the use of personal protective equipment (PPE) This may decrease voice recognition accuracy Inadvertent waiter/waitress tavern errors may occur 12/30/2023 Essential (primary) hypertension (ICD-10 - I10) Patient presents for annual [facility] Acute Concerns/Proble m List: 12/30/2023 Chronic conditions are well controlled and stable at this time Will increase metformin to 500 mg twice daily Dermatology for skin lesion of right forearm for punch biopsy Supplement vitamin D We discussed in detail the management of diabetes mellitus. Emphasis was paid on nutrition, low carbohydrate diet with good fat and protein sources, fruits and vegetables was discussed. Exercise was recommended. Incorporation of daily walking into a routine was discussed. A pedometer goal of 10,000 steps was discussed. Management of diabetes mellitus along with medications to treat the condition was discussed. Importance of diabetic foot exam, diabetic eye exam, urine microalbumin analysis annually was discussed. Side effects of diabetic medications were discussed again. Patient agrees to take medications as prescribed and comply with lifestyle modifications. Of note, some information is being carried forward from prior records for informational purposes only and is being cited so that efficiency, safety and quality of the patient's care is not compromised This note was prepared using voice recognition software and direct typing Please excuse inadvertent waiter/waitress tavern or typing errors, or uncorrected word substitutions Although every attempt has been made by the provider to proofread this document, occasional misspellings and typographical errors may still be present Due to the previous pandemic, and the use of personal protective equipment (PPE) This may decrease voice recognition accuracy Inadvertent waiter/waitress tavern errors may occur 12/30/2023 Hyperlipidemia, unspecified (ICD-10 - E78.5) Patient presents for annual [facility] Acute Concerns/Proble m List: 12/30/2023 Chronic conditions are well controlled and stable at this time Will increase metformin to 500 mg twice daily Dermatology for skin lesion of right forearm for punch biopsy Supplement vitamin D We discussed in detail the management of diabetes mellitus. Emphasis was paid on nutrition, low carbohydrate diet with good fat and protein sources, fruits and vegetables was discussed. Exercise was recommended. Incorporation of daily walking into a routine was discussed. A pedometer goal of 10,000 steps was discussed. Management of diabetes mellitus along with medications to treat the condition was discussed. Importance of diabetic foot exam, diabetic eye exam, urine microalbumin analysis annually was discussed. Side effects of diabetic medications were discussed again. Patient agrees to take medications as prescribed and comply with lifestyle modifications. Of note, some information is being carried forward from prior records for informational purposes only and is being cited so that efficiency, safety and quality of the patient's care is not compromised This note was prepared using voice recognition software and direct typing Please excuse inadvertent waiter/waitress tavern or typing errors, or uncorrected word substitutions Although every attempt has been made by the provider to proofread this document, occasional misspellings and typographical errors may still be present Due to the previous pandemic, and the use of personal protective equipment (PPE) This may decrease voice recognition accuracy Inadvertent waiter/waitress tavern errors may occur 04/30/2024 Morbid obesity (ICD- 10 - E66.01) Acute Concerns/Proble m List: 04/30/2024 Hemoglobin A1c of 6.9 stable at this time continue metformin Discussed utilizing dual incretin's or single incretin GLP-1's BP stable We discussed in detail the management of diabetes mellitus. Emphasis was paid on nutrition, low carbohydrate diet with good fat and protein sources, fruits and vegetables was discussed. Exercise was recommended. Incorporation of daily walking into a routine was discussed. A pedometer goal of 10,000 steps was discussed. Management of diabetes mellitus along with medications to treat the condition was discussed. Importance of diabetic foot exam, diabetic eye exam, urine microalbumin analysis annually was discussed. Side effects of diabetic medications were discussed again. Patient agrees to take medications as prescribed and comply with lifestyle modifications. Of note, some information is being carried forward from prior records for informational purposes only and is being cited so that efficiency, safety and quality of the patient's care is not compromised This note was prepared using voice recognition software and direct typing Please excuse inadvertent waiter/waitress tavern or typing errors, or uncorrected word substitutions Although every attempt has been made by the provider to proofread this document, occasional misspellings and typographical errors may still be present Due to the previous pandemic, and the use of personal protective equipment (PPE) This may decrease voice recognition accuracy Inadvertent waiter/waitress tavern errors may occur 08/29/2024 Sleep apnea, unspecified (ICD-10 - G47.30) Acute Concerns/Proble m List: 08/29/2024 Hemoglobin A1c of 6.7 stable at this time continue metformin Getting updated mammography next month Will see her back in the end of the summer for a Medicare visit with updated comprehensive labs Of note, some information is being carried forward from prior records for informational purposes only and is being cited so that efficiency, safety and quality of the patient's care is not compromised This note was prepared using voice recognition software and direct typing Please excuse inadvertent waiter/waitress tavern or typing errors, or uncorrected word substitutions Although every attempt has been made by the provider to proofread this document, occasional misspellings and typographical errors may still be present Due to the previous pandemic, and the use of personal protective equipment (PPE) This may decrease voice recognition accuracy Inadvertent waiter/waitress tavern errors may occur 04/30/2024 Body mass index [BMI ] 45.0-49.9, adult (ICD-10 - Z68.42) Acute Concerns/Proble m List: 04/30/2024 Hemoglobin A1c of 6.9 stable at this time continue metformin Discussed utilizing dual incretin's or single incretin GLP-1's BP stable We discussed in detail the management of diabetes mellitus. Emphasis was paid on nutrition, low carbohydrate diet with good fat and protein sources, fruits and vegetables was discussed. Exercise was recommended. Incorporation of daily walking into a routine was discussed. A pedometer goal of 10,000 steps was discussed. Management of diabetes mellitus along with medications to treat the condition was discussed. Importance of diabetic foot exam, diabetic eye exam, urine microalbumin analysis annually was discussed. Side effects of diabetic medications were discussed again. Patient agrees to take medications as prescribed and comply with lifestyle modifications. Of note, some information is being carried forward from prior records for informational purposes only and is being cited so that efficiency, safety and quality of the patient's care is not compromised This note was prepared using voice recognition software and direct typing Please excuse inadvertent waiter/waitress tavern or typing errors, or uncorrected word substitutions Although every attempt has been made by the provider to proofread this document, occasional misspellings and typographical errors may still be present Due to the previous pandemic, and the use of personal protective equipment (PPE) This may decrease voice recognition accuracy Inadvertent waiter/waitress tavern errors may occur 08/29/2024 Body mass index [BMI ] 45.0-49.9, adult (ICD-10 - Z68.42) Acute Concerns/Proble m List: 08/29/2024 Hemoglobin A1c of 6.7 stable at this time continue metformin Getting updated mammography next month Will see her back in the end of the summer for a Medicare visit with updated comprehensive labs Of note, some information is being carried forward from prior records for informational purposes only and is being cited so that efficiency, safety and quality of the patient's care is not compromised This note was prepared using voice recognition software and direct typing Please excuse inadvertent waiter/waitress tavern or typing errors, or uncorrected word substitutions Although every attempt has been made by the provider to proofread this document, occasional misspellings and typographical errors may still be present Due to the previous pandemic, and the use of personal protective equipment (PPE) This may decrease voice recognition accuracy Inadvertent waiter/waitress tavern errors may occur 12/30/2023 Sleep apnea, unspecified (ICD-10 - G47.30) Patient presents for annual [facility] Acute Concerns/Proble m List: 12/30/2023 Chronic conditions are well controlled and stable at this time Will increase metformin to 500 mg twice daily Dermatology for skin lesion of right forearm for punch biopsy Supplement vitamin D We discussed in detail the management of diabetes mellitus. Emphasis was paid on nutrition, low carbohydrate diet with good fat and protein sources, fruits and vegetables was discussed. Exercise was recommended. Incorporation of daily walking into a routine was discussed. A pedometer goal of 10,000 steps was discussed. Management of diabetes mellitus along with medications to treat the condition was discussed. Importance of diabetic foot exam, diabetic eye exam, urine microalbumin analysis annually was discussed. Side effects of diabetic medications were discussed again. Patient agrees to take medications as prescribed and comply with lifestyle modifications. Of note, some information is being carried forward from prior records for informational purposes only and is being cited so that efficiency, safety and quality of the patient's care is not compromised This note was prepared using voice recognition software and direct typing Please excuse inadvertent waiter/waitress tavern or typing errors, or uncorrected word substitutions Although every attempt has been made by the provider to proofread this document, occasional misspellings and typographical errors may still be present Due to the previous pandemic, and the use of personal protective equipment (PPE) This may decrease voice recognition accuracy Inadvertent waiter/waitress tavern errors may occur 08/29/2024 Vitamin D deficiency (ICD-10 - E55.9) Acute Concerns/Proble m List: 08/29/2024 Hemoglobin A1c of 6.7 stable at this time continue metformin Getting updated mammography next month Will see her back in the end of the summer for a Medicare visit with updated comprehensive labs Of note, some information is being carried forward from prior records for informational purposes only and is being cited so that efficiency, safety and quality of the patient's care is not compromised This note was prepared using voice recognition software and direct typing Please excuse inadvertent waiter/waitress tavern or typing errors, or uncorrected word substitutions Although every attempt has been made by the provider to proofread this document, occasional misspellings and typographical errors may still be present Due to the previous pandemic, and the use of personal protective equipment (PPE) This may decrease voice recognition accuracy Inadvertent waiter/waitress tavern errors may occur 04/30/2024 Vitamin D deficiency (ICD-10 - E55.9) Acute Concerns/Proble m List: 04/30/2024 Hemoglobin A1c of 6.9 stable at this time continue metformin Discussed utilizing dual incretin's or single incretin GLP-1's BP stable We discussed in detail the management of diabetes mellitus. Emphasis was paid on nutrition, low carbohydrate diet with good fat and protein sources, fruits and vegetables was discussed. Exercise was recommended. Incorporation of daily walking into a routine was discussed. A pedometer goal of 10,000 steps was discussed. Management of diabetes mellitus along with medications to treat the condition was discussed. Importance of diabetic foot exam, diabetic eye exam, urine microalbumin analysis annually was discussed. Side effects of diabetic medications were discussed again. Patient agrees to take medications as prescribed and comply with lifestyle modifications. Of note, some information is being carried forward from prior records for informational purposes only and is being cited so that efficiency, safety and quality of the patient's care is not compromised This note was prepared using voice recognition software and direct typing Please excuse inadvertent waiter/waitress tavern or typing errors, or uncorrected word substitutions Although every attempt has been made by the provider to proofread this document, occasional misspellings and typographical errors may still be present Due to the previous pandemic, and the use of personal protective equipment (PPE) This may decrease voice recognition accuracy Inadvertent waiter/waitress tavern errors may occur 12/30/2023 Morbid obesity (ICD- 10 - E66.01) Patient presents for annual [facility] Acute Concerns/Proble m List: 12/30/2023 Chronic conditions are well controlled and stable at this time Will increase metformin to 500 mg twice daily Dermatology for skin lesion of right forearm for punch biopsy Supplement vitamin D We discussed in detail the management of diabetes mellitus. Emphasis was paid on nutrition, low carbohydrate diet with good fat and protein sources, fruits and vegetables was discussed. Exercise was recommended. Incorporation of daily walking into a routine was discussed. A pedometer goal of 10,000 steps was discussed. Management of diabetes mellitus along with medications to treat the condition was discussed. Importance of diabetic foot exam, diabetic eye exam, urine microalbumin analysis annually was discussed. Side effects of diabetic medications were discussed again. Patient agrees to take medications as prescribed and comply with lifestyle modifications. Of note, some information is being carried forward from prior records for informational purposes only and is being cited so that efficiency, safety and quality of the patient's care is not compromised This note was prepared using voice recognition software and direct typing Please excuse inadvertent waiter/waitress tavern or typing errors, or uncorrected word substitutions Although every attempt has been made by the provider to proofread this document, occasional misspellings and typographical errors may still be present Due to the previous pandemic, and the use of personal protective equipment (PPE) This may decrease voice recognition accuracy Inadvertent waiter/waitress tavern errors may occur 08/29/2024 Acquired hypothyroid ism (ICD-10 - E03.9) Acute Concerns/Proble m List: 08/29/2024 Hemoglobin A1c of 6.7 stable at this time continue metformin Getting updated mammography next month Will see her back in the end of the summer for a Medicare visit with updated comprehensive labs Of note, some information is being carried forward from prior records for informational purposes only and is being cited so that efficiency, safety and quality of the patient's care is not compromised This note was prepared using voice recognition software and direct typing Please excuse inadvertent waiter/waitress tavern or typing errors, or uncorrected word substitutions Although every attempt has been made by the provider to proofread this document, occasional misspellings and typographical errors may still be present Due to the previous pandemic, and the use of personal protective equipment (PPE) This may decrease voice recognition accuracy Inadvertent waiter/waitress tavern errors may occur 12/30/2023 Body mass index [BMI ] 45.0-49.9, adult (ICD-10 - Z68.42) Patient presents for annual [facility] Acute Concerns/Proble m List: 12/30/2023 Chronic conditions are well controlled and stable at this time Will increase metformin to 500 mg twice daily Dermatology for skin lesion of right forearm for punch biopsy Supplement vitamin D We discussed in detail the management of diabetes mellitus. Emphasis was paid on nutrition, low carbohydrate diet with good fat and protein sources, fruits and vegetables was discussed. Exercise was recommended. Incorporation of daily walking into a routine was discussed. A pedometer goal of 10,000 steps was discussed. Management of diabetes mellitus along with medications to treat the condition was discussed. Importance of diabetic foot exam, diabetic eye exam, urine microalbumin analysis annually was discussed. Side effects of diabetic medications were discussed again. Patient agrees to take medications as prescribed and comply with lifestyle modifications. Of note, some information is being carried forward from prior records for informational purposes only and is being cited so that efficiency, safety and quality of the patient's care is not compromised This note was prepared using voice recognition software and direct typing Please excuse inadvertent waiter/waitress tavern or typing errors, or uncorrected word substitutions Although every attempt has been made by the provider to proofread this document, occasional misspellings and typographical errors may still be present Due to the previous pandemic, and the use of personal protective equipment (PPE) This may decrease voice recognition accuracy Inadvertent waiter/waitress tavern errors may occur 12/30/2023 Vitamin D deficiency (ICD-10 - E55.9) Patient presents for annual [facility] Acute Concerns/Proble m List: 12/30/2023 Chronic conditions are well controlled and stable at this time Will increase metformin to 500 mg twice daily Dermatology for skin lesion of right forearm for punch biopsy Supplement vitamin D We discussed in detail the management of diabetes mellitus. Emphasis was paid on nutrition, low carbohydrate diet with good fat and protein sources, fruits and vegetables was discussed. Exercise was recommended. Incorporation of daily walking into a routine was discussed. A pedometer goal of 10,000 steps was discussed. Management of diabetes mellitus along with medications to treat the condition was discussed. Importance of diabetic foot exam, diabetic eye exam, urine microalbumin analysis annually was discussed. Side effects of diabetic medications were discussed again. Patient agrees to take medications as prescribed and comply with lifestyle modifications. Of note, some information is being carried forward from prior records for informational purposes only and is being cited so that efficiency, safety and quality of the patient's care is not compromised This note was prepared using voice recognition software and direct typing Please excuse inadvertent waiter/waitress tavern or typing errors, or uncorrected word substitutions Although every attempt has been made by the provider to proofread this document, occasional misspellings and typographical errors may still be present Due to the previous pandemic, and the use of personal protective equipment (PPE) This may decrease voice recognition accuracy Inadvertent waiter/waitress tavern errors may occur Plan Of Treatment Pending Test Test Name Order Date Hemoglobin A1c 06/20/2018 Hemoglobin A1c 09/20/2018 Lipid Panel 09/20/2018 Lipid Panel 06/20/2018 Comp. Metabolic Panel (14) 09/20/2018 Comp. Metabolic Panel (14) 06/20/2018 CBC 09/20/2018 CBC 06/20/2018 Urinalysis 09/20/2018 Urinalysis 06/20/2018 25OH VITAMIN D 06/29/2022 25OH VITAMIN D 07/04/2023 CBC (COMPLETE BLOOD COUNT) 06/29/2022 CBC (COMPLETE BLOOD COUNT) 07/04/2023 CBC (COMPLETE BLOOD COUNT) 10/05/2017 CBC (COMPLETE BLOOD COUNT) 02/05/2020 CBC (COMPLETE BLOOD COUNT) 09/01/2020 COMPREHENSIVE METABOLIC PANEL 09/01/2020 COMPREHENSIVE METABOLIC PANEL 06/29/2022 COMPREHENSIVE METABOLIC PANEL 10/05/2017 COMPREHENSIVE METABOLIC PANEL 02/05/2020 COMPREHENSIVE METABOLIC PANEL 07/04/2023 HEMOGLOBIN A1C 07/04/2023 HEMOGLOBIN A1C 02/05/2020 HEMOGLOBIN A1C 10/05/2017 HEMOGLOBIN A1C 06/29/2022 HEMOGLOBIN A1C 03/24/2021 HEMOGLOBIN A1C 09/01/2020 LIPID PANEL 09/01/2020 LIPID PANEL 06/29/2022 LIPID PANEL 10/05/2017 LIPID PANEL 02/05/2020 LIPID PANEL 07/04/2023 MAGNESIUM 02/05/2020 MICROALBUMIN, URINE 10/05/2017 TSH 07/04/2023 TSH 06/29/2022 URINALYSIS W/REFLEX CULTURE 07/04/2023 URINALYSIS, COMPLETE 10/05/2017 URINALYSIS, COMPLETE 02/05/2020 XR Chest 2 Views 11/17/2021 XR Knee 3 Views RT 11/25/2020 XR Wrist 2 Views RT 10/12/2021 HEMOGLOBIN A1c 12/24/2021 COMPLETE URINALYSIS 09/01/2020 COMPLETE URINALYSIS 06/29/2022 Future Test Test Name Order Date 25OH VITAMIN D 03/28/2021 HEMOGLOBIN A1C 03/28/2021 MICROALBUMIN, URINE 03/28/2021 25OH VITAMIN D 12/23/2021 CBC (COMPLETE BLOOD COUNT) 12/23/2021 COMPREHENSIVE METABOLIC PANEL 12/23/2021 HEMOGLOBIN A1C 12/23/2021 LIPID PANEL 12/23/2021 MICROALBUMIN, URINE 12/23/2021 T4, TOTAL 12/23/2021 TSH 12/23/2021 URINALYSIS W/REFLEX CULTURE 12/23/2021 HEMOGLOBIN A1C 06/29/2023 Next Appt Details Provider Name:LOC MINA, 12/24/2024 08:00:00 AM, [address], [address], [place], [address], Insurance Providers Payer Name Payer Address Payer Phone Subscriber Number Group Number Insured Name Patient Relationship to Insured Coverage Start Date Coverage End Date [employer]/Veronika or Options [address] [place] [id number] [phone] [id number] QUANG ROBLES Self - patient is the insured Medical (General) History Medical History History ICD Code hypertension Hypothyroidism type II diabetes vitamin D deficiency hyperlipidemia breast cancer s/p lumpectomy and now on anastrazole and sees Dr Sosa JAI sees DR Guerrero CAD s/p stents [address] euceda Glaucoma sees Dr Guidry chronic back pain MRI spine moderate DJD 11/2012 Surgical History Surgery Date(Month/Year) thyroidectomy lumpectomy, right breast colonoscopy 6 years
--- OUTSIDE RECORDS SUMMARY | 2024-09-20 11:26 | XMS_ITS ---
Author Organization [facility] Address [address] [place] [address] Care Team Providers Care Photographic Process Attendant Name Role Phone Humberto Sarabia Primary Care Provider Anthony Diop Unavailable [phone] Encounters Encounter Location Date Provider Diagnosis [facility] [address] [place] [id number] 05/07/2024 Anthony Morrow Plan Of Treatment Next Appt Details Provider Name:Anthony Morrow , 11/21/2024 08:30:00 AM, [address], [address], Progress Notes * Nancy MORALES LDOB:[birth year] (63 yo F)Acc No.[id number]:05/07/2024 Progress Note Patient:?MARGARET Nancy Coyle Provider:?Anthony Morrow DPM :1960???Age:63 Y???Sex:Female D ate:05/07/2024 Address:[address] [place] [id number] Pcp:Humberto Sarabia Subjective: * Chief Complaints: * ??? * Medical History:? Objective: * Vitals:? Assessment: Plan: * Treatment: * Images: * The named appointment provid er may or may not be the originator of this progress note, and it is not deemed complete until electronically signed by the appointment provider. Sign off status: Pending * Provider:?Anthony Morrow DPM Date:?2023 Generated for Jada pineda/Raymond/Karen on:?09/20/2024 11:26 AM EDT
--- OUTSIDE RECORDS SUMMARY | 2024-09-20 11:26 | XMS_ITS ---
Author Organization [facility] [place] Address [address] [place] [address] Care Team Providers Care Senior Commissary Agent Name Role Phone Humberto Sarabia Primary Care Provider Anthony Diop Unavailable [phone] Allergies Allergen (clinical drug ingredient) Drug/Non Drug Allergy documented on EMR Reaction Allergy Type Onset Date Status Motrin upset stomach Drug Allergy Act willis acetaminophen / oxycodone Percocet Unknown Drug Allergy Active REASON FOR VISIT At Risk Footcare, Painful Nail(s) aggravated by shoes and causing difficulty standing/walking. Medications Medication SIG (Take, Route, Frequency, Duration) Notes Start Date End Date Status CoQ-10 Active Labetalol HCl 300 MG take 1 tablet by mouth twice a day Oral for 90 plus 100 mg Active Ecotrin Low Strength 81 MG 1 tablet Orally Once a day Active Levothyroxine Sodium 50 MCG 1 tablet Orally Once a day 02/28/2014 Active Latanoprost Active Vitamin D3 Active Trulance 3 MG 1 tablet Orally Once a day Active Gabapentin Active Rosuvastatin Calcium Active Pepcid Complete Acti ve hydrALAZINE HCl Not- Taking Chlorthalidone Not-T aking Xalatan 0.005 % 1 drop into affected eye in the evening Ophthalmic Once a day Not-Taking Tylenol Arthritis Pain 650 MG 1 tablet as needed Orally every 8 hrs Not-Taking Vitamin D High Potency 25 MCG (1000 UT) 1 capsule Orally Once a day Not-Taking Atorvastatin Calcium 40 MG 1 tablet Orally Once a day 02/28/2014 Not-Taking Anastrozole 1 MG 1 tablet Orally Once a day 02/28/2014 Not-Taking Famotidine 20 MG 1 tablet at bedtime as needed Orally Once a day for 30 day(s) Not-Taking Omeprazole 20 MG 1 capsule Orally Once a day 02/28/2014 Not-Taking Meloxicam Not-Taking Night Splint AFO - L1930 1 wear at rest for 30 days Not-Taking NIFEdipine ER 60 MG 1 tablet Orally twice a day 02/28/2014 Active Crestor Not-Taking Extra Depth Orthopedic Shoes (1 Pair) with Customized Heat Molded Multidensity Innersoles (3 Pair) as directed Dx: NIDDM (E11.9), Hammertoe Foot Deformity (M20.41,M20.42), Preulcerative Skin Lesion(s) (L85.1) 11/16/2023 Active Cyclobenzaprine HCl Not-Taking Metformin & Diet Manage Prod 500 MG Orally 02/28/2014 Active Lisinopril 40 MG 1 tablet Orally Once a day 02/28/2014 Active Social History Tobacco Use: Social History Observation Description Date Details (start date - stop date) Never Smoker NA - NA Tobacco use other than smoking: Question Answer Notes Are you an other tobacco user? No Tobacco Control (Standard) Question Answer Notes Tobacco use: Nonsmoker Additional Findings: Tobacco non-user Current no nsmoker Vital Signs Height 5ft 5in in 07/25/2024 Weight 274 lbs 07/25/2024 BMI 45.59 kg/m2 07/25/2024 Blood pressure systolic 127 mm Hg 07/26/19 25 Blood pressure diastolic 72 mm Hg 025 Procedures Procedure Date Ordered Date Performed Result Body Sit e 15767-[id number] NAIL, 6 OR MORE 07/25/2024 N/A 75389-IUUN SKIN LESIONS, OVER 4 07/25/2024 N/A Encounters Encounter Location Date Provider Diagnosis [facility] [place] [address] [address] 07/25/2024 Anthony Cristhian Pain in right toe(s) M79.674 ; Tinea unguium B35.1 ; Pain in left toe(s) M79.675 and Type 2 diabetes mellitus without complication E11.9 Assessments Encounter Date Diagnosis (ICD Code) Assessment Notes Treatment Notes Treatment Clinical Notes Section Notes 07/25/2024 Pain in right toe(s) (ICD-10 - M79.674) 07/25/2024 Tinea unguium (ICD-10 - B35.1) 07/25/2024 Pain in left toe(s) (ICD-10 - M79.675) 07/25/2024 Type 2 diabetes mellitus without complication (ICD-10 - E11.9) Plan Of Treatment Pending Test Test Name Order Date [id number] NAIL, 6 OR MORE 07/25/2024 00752-BZZI SKIN LESIONS, OVER 4 07/26/19 25 Next Appt Details Follow Up: 4 Months, Reason: Provider Name:Anthony Lindsey Morrow , 11/21/2024 08:30:00 AM, [address] , [address], [place], [address], Procedure Notes * Category Sub-Category Detail Notes Debride Nail 6-10 Nail debridement Due to the cl inical pathology outlined in the exam findings, performance of this nail treatment is medically necessary as its management by an unskilled/untrained nonprofessional would put this patients foot and overall health at risk. Therefore, debridement to affected nail(s), as described in exam ( TA, T1, T4, T5, T6, T7, T9 ), was performed exclusively by the physician of record to reduce/remove overall nail length, girth, thickness, subungual debris, and necrotic tissue, by manual and/or electrical means through the use of a nail nipper and/or dremel-type od grinder operator, to a more viable healthy nail plate or bed tissue 6-10 nails in total. Silver nitrate was used for any petechial bleeding as necessary. Definitive antifungal treatment options, both pharmaceutical and surgical, have been reviewed and discussed with the patient. The patient solely prefers the use of intermittent/as needed professional debridement services for their nail condition and understands the need for additional periodic treatments to maintain effectiveness in symptomatic relief - 65106 Keratoma Treatment Parring or Cutting o f Benign Hyperkeratotic Lesion(s) (-57) More than 4 Lesions - Due to the at risk nature of the patients medical condition as documented in the exam findings, performance of this keratoderma treatment is medically necessary as its management by an unskilled/untrained nonprofessional would put this patients foot and overall health at risk. Therefore, the benign hyperkeratotic lesions, ( 6 ) in total, locations as stated and described in the exam ( Medial, IPJ, TA, Dorsal, PIPJ, T4, Medial, IPJ, T5, Dorsal, PIPJ, T9, Medial plantar, MTH (s), 1, B/L ), were pared, and/or cut utilizing a sterile 15 blade, tissue nippers, and/or power dremel instrumentation by the physician of record - 13012 Progress Notes * Nancy MORALES LDOB:[birth year] (63 yo F)Acc No.[id number]:07/25/2024 Progress Note Patient:?Nancy MORALES Provider:?Anthony Morrow DPM :1960???Age:63 Y???Sex:Female D ate:07/25/2024 Address:[address] [place], [place] [phone] Pcp:Humberto Sarabia Subjective: * Chief Complaints: * ???At Risk FootcarePainful N ail(s) aggravated by shoes and causing difficulty standing/walking. * HPI: ???At Risk footcare:?Pt States Last PCP Visit:?Date?04/26/2024 * ROS:?General/Constitutional:?Nausea?denies.?Vomiting?denies.?Hunger Thirst?denies.?Loss appetite?denies.?Chills?denies.?Fatigue?denies.?Fever?denies.?Night Sweats?denies.?Unexplained weight loss?denies.?Unexplained weight gain?denies.?HEENTM:?Dentures?denies.?Dizziness?denies.?Glasses/contacts?denies.?Retinopathy?den ies.?Blurred/double vision?denies.?TMJ?denies.?Discharge/drainage?denies.?Implants?denies.?Sore throat?denies.?Dental implants?denies.?Hard of hearing ?denies.?Difficulty chewing/swallowing/speaking?denies.?Nose bleeds?denies.?Sore mouth?denies.?Respiratory:?On O xygen?denies.?Pneumonia/pleurisy?denies.?Bronchitis?denies.?Emphysema?denies.?Co ughing?denies.?Cough blood?denies.?Shortness of breath?denies.?Wheezing?denies.?Cardiovascular:?Pacemaker?denies.?MVP?denies.?WPW?denies.?CHF?denies.?Heart attack?denies.?Septal defect?denies.?Rapid beat?denies.?Chest pain ?denies.?Atrial Fib.?denies.?Murmur/Palpitations?denies.?Gastrointestinal:?Hemorrhoids?denies.?Stomach/Abdominal pain?denies.?Dark blood stool?denies.?Irritable bowel ?denies.?Constipation?denies.?Diarrhea?denies.?Hematology:?Swelling?denies.?Clots?denies.?Varicose Veins?denies.?Bruising?denies.?Bleeding problem?denies.?Genitourinary:?Blood urine?denies.?Frequent/Painfu/urination/bladder control?denies.?Kidney stones?denies.?Infection (UTI)?denies.?Nephropathy?denies.?sex trans dis (STD)?denies.?Prostate?denies.?Musculoskeletal:?Hammertoes?admits.?Bunions?denies.?Back Pain?denies.?Muscle Cramps/ Resting?denies.?Muscle cramps / walking?denies.?Generalized aches and pains?denies.?Weakness?denies.?Integ.:?Cueva?denies.?Scars?denies.?Corns/calluses?admits.?Ingrown nails?admits.?Painful nails?admits.?Open Sores?denies.?Rashes?denies.?Neurologic:?Difficulty sleeping?denies.?Brain disorder?denies.?Numbness?denies.?Balance t rouble?denies.?Confusion?denies.?Fainting/blackouts?denies.?Tingling?denies.?Raad mors?denies.? * Medical History:? * Surgical History:?Heart sten t 2004breast surgery 2011 * Hospitalization/Major Diagno stic Procedure:?No Hospitalization History. * Family History:?Mother: dece ased, diagnosed with Diabetic - NIDDM, Unspecified essential hypertension, Unspecified heart disease, Unspecified cerebral artery occlusion with cerebral infarction, Family history of arthritis.?Father: .?Siblings: diagnosed with Diabetic - NIDDM, Unspecified essential hypertension, Unspecified cerebral artery occlusion with cerebral infarction.? No children. * Social History:?Tobacco Use:?Tobacco use other than smoking?Are you an other tobacco user??No ?Tobacco Control (Standard)?Tobacco use:?Nonsmoker ?Additional Findings: Tobacco non-user?Current nonsmoker ???Drugs/Alcohol:?Drugs?Have you used drugs other than those for medical reasons in the past 12 months??No ?Alcohol Screen?Did you have a drink containing alcohol in the past year?: No, Points: 0, Interpretation: Negative.?Miscellaneous:?Caffeine: yes, 2-3 cups per day. ?Children: none. ?Exercise: yes, walking, gym. ?Marital status: . ?Occupation: Disabled. * Medications:?TakingVitamin D 3 Gabapentin Trulance 3 MG Tablet 1 tablet Orally Once a day Pepcid Complete Rosuvastatin Calcium CoQ-10 Ecotrin Low Strength 81 MG Tablet Delayed Release 1 tablet Orally Once a day Labetalol HCl 300 MG Tablet take 1 tablet by mouth twice a day Oral , Notes to Pharmacist: plus 100 mgLatanoprost Levothyroxine Sodium 50 MCG Tablet 1 tablet Orally Once a day Lisinopril 40 MG Tablet 1 tablet Orally Once a day Metformin & Diet Manage Prod 500 MG Miscellaneous Orally NIFEdipine ER 60 MG Tablet Extended Release 24 Hour 1 tablet Orally twice a day Extra Depth Orthopedic Shoes (1 Pair) with Customized Heat Molded Multidensity Innersoles (3 Pair) as directed Dx: NIDDM (E11.9), Hammertoe Foot Deformity (M20.41,M20.42), Preulcerative Skin Lesion(s) (L85.1) Taking Vitamin D3 Taking Gabapentin Taking Trulance 3 MG Tablet 1 tablet Orally Once a day Taking Pepcid Complete Taking Rosuvastatin Calcium Taking CoQ-10 Taking Ecotrin Low Strength 81 MG Tablet Delayed Release 1 tablet Orally Once a day Taking Labetalol HCl 300 MG Tablet take 1 tablet by mouth twice a day Oral , Notes to Pharmacist: plus 100 mgTaking Latanoprost Taking Levothyroxine Sodium 50 MCG Tablet 1 tablet Orally Once a day Taking Lisinopril 40 MG Tablet 1 tablet Orally Once a day Taking Metformin & Diet Manage Prod 500 MG Miscellaneous Orally Taking NIFEdipine ER 60 MG Tablet Extended Release 24 Hour 1 tablet Orally twice a day Taking Extra Depth Orthopedic Shoes (1 Pair) with Customized Heat Molded Multidensity Innersoles (3 Pair) as directed Dx: NIDDM (E11.9), Hammertoe Foot Deformity (M20.41,M20.42), Preulcerative Skin Lesion(s) (L85.1) Not-Taking/PRNNight Splint AFO - L1930 1 wear at rest Crestor Cyclobenzaprine HCl Famotidine 20 MG Tablet 1 tablet at bedtime as needed Orally Once a day Meloxicam Omeprazole 20 MG Capsule Delayed Release 1 capsule Orally Once a day Anastrozole 1 MG Tablet 1 tablet Orally Once a day Atorvastatin Calcium 40 MG Tablet 1 tablet Orally Once a day Chlorthalidone hydrALAZINE HCl Xalatan 0.005 % Solution 1 drop into affected eye in the evening Ophthalmic Once a day Vitamin D High Potency 25 MCG (1000 UT) Capsule 1 capsule Orally Once a day Tylenol Arthritis Pain 650 MG Tablet Extended Release 1 tablet as needed Orally every 8 hrs Medication List reviewed and reconciled with the patientNot-Taking/PRN Night Splint AFO - L1930 1 wear at rest Not- Taking/PRN Crestor Not-Taking/PRN Cyclobenzaprine HCl Not-Taking/PRN Famotidine 20 MG Tablet 1 tablet at bedtime as needed Orally Once a day Not-Taking/PRN Meloxicam Not- Taking/PRN Omeprazole 20 MG Capsule Delayed Release 1 capsule Orally Once a day Not- Taking/PRN Anastrozole 1 MG Tablet 1 tablet Orally Once a day Not-Taking/PRN Atorvastatin Calcium 40 MG Tablet 1 tablet Orally Once a day Not-Taking/PRN Chlorthalidone Not-Taking/PRN hydrALAZINE HCl Not-Taking/PRN Xalatan 0.005 % Solution 1 drop into affected eye in the evening Ophthalmic Once a day Not-Taking/PRN Vitamin D High Potency 25 MCG (1000 UT) Capsule 1 capsule Orally Once a day Not-Taking/PRN Tylenol Arthritis Pain 650 MG Tablet Extended Release 1 tablet as needed Orally every 8 hrs Medication List reviewed and reconciled with the patient * Allergies:?Motrin: upset sto Teresa[Allergies Verified] Objective: * Vitals:?Ht: 5ft 5in, Wt:274, BMI:45.59, Shoe size: 9.5, BP:127/72mm Hg, BS: 125, Ht-cm: 165.1 cm, Wt-k.29 kg. * ???Past Orders: ???Lab:HEMOGLOBIN A1C (GLYCO HEMOGLOBIN) (Order Date - 04/09/2024) (Collection Date & Time - 04/10/2024 08:29 AM) ? Value Reference Range ?HEMOGLOBIN A1C % (HH) 6.9 * Examination: ???Ophthalmology Referral: ?DIABETES EYE EXAM?Procedure Performed:?Yes ?Date of Exam Performed?08/22/2023 States next appt soon - September ?Diabetic Retinopathy Screening:?Yes ?Retinal Screening Performed:?Yes ?Findings of Diabetic Eye Exam:?no retinopathy?Nails: ?NAILS are:?Elongated, overgrown, dystrophic, lytic, greater than 3mm thick, discolored and friable with crumbly malodorous subungual debris, with pain on palpation, TA, T1, T4, T5, T6, T7, T9, all other nails not described with characteristics as possessing mycosis are elongated, overgrown, and dystrophic.?Dermatologic: ?SKIN FINDINGS:?Skin exam reveals Keratotic lesion(s) located at, Medial, IPJ, TA, Dorsal, PIPJ, T4, Medial, IPJ, T5, Dorsal, PIPJ, T9, Medial plantar, MTH (s), 1, B/L, Skin shows sign(s) of, brown pigmented lesion, 17mm x 11mm , without ABCD changes, Dorsal, Forefoot, LEFT.? Assessment: * Assessment: 1.?Pain in right toe(s) - M7 9.674???2.?Tinea unguium - B35.1 (Primary)???3.?Pain in left toe(s) - M79.675???4.?Type 2 diabetes mellitus without complication - E11.9??? Plan: * Treatment: 2.?Type 2 diabetes mellitus without complication?Procedure: [id number] SKIN LESIONS, OVER 4 * Procedures:?Debride Nail 6-10:?Nail debridement?Due to the clinical pathology outlined in the exam findings, performance of this nail treatment is medically necessary as its management by an unskilled/untrained nonprofessional would put this patients foot and overall health at risk. Therefore, debridement to affected nail(s), as described in exam (?TA,?T1,?T4,?T5,?T6,?T7,?T9?), was performed exclusively by the physician of record to reduce/remove overall nail length, girth, thickness, subungual debris, and necrotic tissue, by manual and/or electrical means through the use of a nail nipper and/or dremel-type od grinder operator, to a more viable healthy nail plate or bed tissue 6- 10 nails in total. Silver nitrate was used for any petechial bleeding as necessary. Definitive antifungal treatment options, both pharmaceutical and surgical, have been reviewed and discussed with the patient. The patient solely prefers the use of intermittent/as needed professional debridement services for their nail condition and understands the need for additional periodic treatments to maintain effectiveness in symptomatic relief - 80198.?Keratoma Treatment:?Parring or Cutting of Benign Hyperkeratotic Lesion(s)?(-57) More than 4 Lesions - Due to the at risk nature of the patients medical condition as documented in the exam findings, performance of this keratoderma treatment is medically necessary as its management by an unskilled/untrained nonprofessional would put this patients foot and overall health at risk. Therefore, the benign hyperkeratotic lesions, ( 6 ) in total, locations as stated and described in the exam (?Medial,?IPJ,?TA,?Dorsal,?PIPJ,?T4,?Medial,?IPJ,?T5,?Dorsal,?PIPJ,?T9,?Medial plantar,?MTH (s),?1,?B/L?), were pared, and/or cut utilizing a sterile 15 blade, tissue nippers, and/or power dremel instrumentation by the physician of record - 50334.? * Procedure Codes:?86723 DEBRI DE NAIL, 6 OR MORE, Modifiers: XS 57393 TRIM SKIN LESIONS, OVER 4, Modifiers: XS * Follow Up:?4 Months * Images: * Sign off status: Completed true * Provider:?Anthony Morrow DPM Date:?2024 Generated for Jada pineda/Raymond/Carmelitaitting on:?09/20/2024 11:26 AM EDT History and Physical Notes * HPI (History of Present Illness) Category Sub-Category Detail Notes Category Not es At Risk footcare Pt States Last PCP Visit: Date: Examination Category Sub-Category Detail Notes Category Not es Dermatologic SKIN FINDINGS: Skin exam reveal s Keratotic lesion(s) located at, Medial, IPJ, TA, Dorsal, PIPJ, T4, Medial, IPJ, T5, Dorsal, PIPJ, T9, Medial plantar, MTH (s), 1, B/L, Skin shows sign(s) of, brown pigmented lesion, 17mm x 11mm , without ABCD changes, Dorsal, Forefoot, LEFT Ophthalmology Referral DIABETES EYE EXAM Procedu re Performed:: Yes ?Date of Exam Performed: 08/22/2023 Stat es next appt - September Diabetic Retinopathy Screening:: Yes Retinal Screening Performed:: Yes Findings of Diabetic Eye Exam:: no retin opathy Nails NAILS are: Elongated, overg rown, dystrophic, lytic, greater than 3mm thick, discolored and friable with crumbly malodorous subungual debris, with pain on palpation, TA, T1, T4, T5, T6, T7, T9, all other nails not described with characteristics as possessing mycosis are elongated, overgrown, and dystrophic
--- OUTSIDE RECORDS SUMMARY | 2024-09-20 11:26 | XMS_ITS | Clinical Summary ---
Author Organization [facility], Address [address] [place] [address] [place] [address] Phone Care Team Providers Care [place] Name Role Phone Humberto Sarabia MD Primary Care Provider [phone] Allergies Active Allergy Reactions Criticality Noted Date Comments Ibuprofen Other (see comments) 06/14/2019 Oxycodone-Acetaminophen Other (see comments) Medications ASPIRIN 81 PO Take 1 tablet by mouth 1 (one) time each day Active Coenzyme Q10 (COQ-10) 100 MG capsule CoQ-10 100 mg capsule Take by oral route. Active betamethasone dipropionate 0.05 % lotion 03/19/20 19 Active chlorthalidone (HYGROTON) 25 MG tablet Take 1 tablet by mouth 1 (one) time each day Active FREESTYLE LITE test strip 03/19/20 19 Active ketoconazole (NIZORAL) 2 % shampoo 03/19/20 19 Active Lancets (FREESTYLE) lancets 03/19/20 19 Active levothyroxine (LEVOXYL) 50 MCG tablet Take 1 tablet by mouth 1 (one) time each day Active metFORMIN XR (GLUCOPHATE-XR) 500 MG 24 hr tablet Take 1 tablet by mouth 1 (one) time each day Active nitroglycerin (NITROSTAT) 0.4 MG SL tablet nitroglycerin 0.4 mg sublingual tablet Active raNITIdine (ZANTAC) 150 MG tablet ranitidine 150 mg tablet Active CRESTOR 20 MG tablet 04/19/20 19 Active labetalol (NORMODYNE) 100 MG tablet Take 0.5 tablets (50 mg total) by mouth 1 (one) time each day Also takes 300 mg BID 45 tablet 3 10/16/19 21 Active omeprazole (PriLOSEC) [address] capsule TAKE 1 CAPSULE BY MOUTH EVERY DAY 30 MINUTES BEFORE DINNER 09/17/19 21 Active magnesium oxide (MAG-OX) 400 MG tablet Take 1 tablet by mouth 1 (one) time each day if needed 09/16/19 21 Active latanoprost (XALATAN) 0.005 % ophthalmic solution 10/14/19 21 Active NIFEdipine CC (ADALAT CC) 60 MG 24 hr tablet TAKE 1 TABLET BY MOUTH TWICE DAILY DIRECTED 180 tablet 04/10/20 21 Active lisinopril 40 MG tablet TAKE 2 TABLETS(80 MG) BY MOUTH 1 TIME EACH DAY 180 tablet 3 07/10/19 22 Active Active Problems Problem Noted Date Diagnosed Date Diabetes mellitus 12/08/2020 Chronic kidney disease stage 2 06/14/2019 Chronic kidney disease due to hypertension 06/14 Essential hypertension 06/14/2019 Hyperlipidemia 06/14/2019 Renal disorder due to type 2 diabetes mellitus 0 06/14/2019 Resolved Problems Problem Noted Date Diagnosed Date Resolved Date Coronary arteriosclerosis 06/14/2019 Immunizations Immunization Administration Dates Next Due Influenza, MDCK, PF, Quadrivalent 02/07/2019 Zoster 04/27/2018 Social History Tobacco Use Types Packs/Day Years Used Date Smoking Tobacco: Former Comments:Smoking History Inf o:Unknown Alcohol Use Standard Drinks/Week Comments No 0 (1 standard drink = 0.6 oz pur e alcohol) Comments Unknown Sex and Gender Information Value Date Recorded Sex Assigned at Not on file Legal Sex Female 4:34 PM EST Gender Identity Not on file Sexual Orientation Not on file Last Filed Vital Signs Vital Sign Reading Time Taken Comments Blood Pressure 118/72 12/09/2020 2:31 PM EDT Pulse - - Temperature - - Respiratory Rate - - Oxygen Saturation - - Inhaled Oxygen Concentration - - Weight 131 kg (288 lb 3.2 oz) 06/22/2019 9:13 AM EST Height 165.1 cm (5' 5 ) 03/30/2019 12:00 PM EST Body Mass Index 47.96 03/30/2019 12:00 PM EST Plan of Treatment Health Maintenance Due Date Last Done Comments Breast Cancer Screening 1960 Pneumococcal Vaccine: 50+ Years (1 of 2 - PCV) 11/05/1978 Colorectal Cancer Screening: Annual FOBT 11/05/2008 Colorectal Cancer Screening: Colonoscopy 11/05/2008 Colorectal Cancer Screening: Sigmoidoscopy 11/05/2008 Diabetes: Hemoglobin A1C 06/14/2019 018, 04/29/2017 Diabetes: Ophthalmology Exam 06/14/2019 Diabetes: Pedal Pulse Checked 06/14/2019 Diabetes: Sensory Foot Exam 06/14/2019 Diabetes: Visual Foot Exam 06/14/2019 Influenza Vaccine (Season Ended) 2025 02/07/2019 Hepatitis B Vaccine Aged Out No longe r eligible based on patient's age to complete this topic Procedures Procedure Name Priority Date/Time Associated Diagnosis Comments HEMOGLOBIN A1C Routine 09/30/2017 9:44 AM EDT from Last 3 Months or Most Recently Relevant to Health Maintenance Results * (ABNORMAL) Hemoglobin A1c (09/30/2017 9:44 AM EDT) Hemoglobin A1C 6.6(H) (4-6) % [facility] Comment: HEMOGLOBIN A1C(%) ?? GLUCOSE CONTROL INDEX ?<6% ? EXCELLENT ?6-7% ?VERY GOOD ?7-8% ?GOOD ?8-10% ? FAIR ?>10% ?POOR Hemoglobin (Hb) A1c testing is performed by Femi Hetal-quant immunoassay. Any cause of shortened erythrocyte survival will reduce exposure of erythrocytes to glucose with a consequent decrease in Hb A1c (%). Testing performed or reported by ~[facility], ~a Service of [facility], ~[address], [place] [address]~ Paco Owens MD, PhD, Reactor Operator 09/30/2017 9:44 AM EDT us Macrina Long MD LAB BLOOD ORDERABLES Final R esult [facility] from Last 3 Months or Most Recently Relevant to Health Maintenance Insurance [facility] [place] [id number] Care Teams [place] Relationship Specialty Start Date End Date Humberto Sarabia MD [address] [place] [address] PCP - General 03/13/19
== END 2024-09-20 11:34 | disposition home or self-care (01) ==
LOC: HO.HSMS 10:21
PROVIDERS: PCP Internal Medicine; Visit Provider Nurse Practitioner Family
DX: G25.81 Restless legs syndrome (principal); I10 Essential (primary) hypertension; R20.0 Anesthesia of skin; R20.2 Paresthesia of skin; M54.50 Low back pain, unspecified; R25.1 Tremor, unspecified; R25.2 Cramp and spasm
CPT/HCPCS: 99214

== ENCOUNTER → 2024-09-20 10:21 | Outpatient (BNVA) | payer OTHER, SELFPAY | PROVIDERS: PCP Internal Medicine; Visit Provider Nurse Practitioner Family | DX: G25.81 Restless legs syndrome (principal); I10 Essential (primary) hypertension; R20.0 Anesthesia of skin; R20.2 Paresthesia of skin; M54.50 Low back pain, unspecified; R25.1 Tremor, unspecified; R25.2 Cramp and spasm | CPT/HCPCS: 99212 ==

== ENCOUNTER 2024-10-04 13:45 | Outpatient (AMB) | payer OTHER, SELFPAY ==
--- OUTSIDE RECORDS SUMMARY | 2024-10-04 13:53 | XMS_ITS | Patient Health Record ---
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 Role Phone LOC MINA Unavailable [phone] CHANCE BARRON Unavailable [phone] Allergies Allergen (clinical drug ingredient) Drug/Non Drug Allergy documented on EMR Reaction Allergy Type Onset Date Status Motrin Unknown Drug Allergy Active acetaminophen / oxycodone Percocet Unknown Drug Allergy Active Results Component Value Reference Range Notes UA WITH CULTURE IF INDICATED Reviewed date:12/22/2023 12:04:22 PM Interpretation: Performing Lab: Notes/Report: Contract Management Specialist - Ilana Mcclendon MD [address] [place] [address] [employer], a member of [facility] Original Ordering Provider: LOC MINA FUR DRESSER GLUCOSE, (UA) NEGATIVE NEGATIVE mg/dL BILIRUBIN, URINE NEGATIVE NEGATIVE KETONE, URINE NEGATIVE NEGATIVE mg/dL SPECIFIC GRAVITY, URINE 1.018 1.003-1.030 BLOOD, URINE NEGATIVE NEGATIVE PH, URINE 5.0 5.0-8.0 PROTEIN, URINE TRACE <= TRACE mg/dl UROBILINOGEN, URINE 0.2 0.2-1.0 E.U./dL NITRITE, URINE NEGATIVE NEGATIVE LEUKOCYTE ESTERASE, URINE NEGATIVE NEGATIVE TSH Reviewed date:12/22/2023 01:10:16 PM Interpretation: Performing Lab: Notes/Report: Contract Management Specialist - Ilana Mcclendon MD [address] [place] [address] [employer], a member of [facility] TSH 1.45 0.40-4.00 uIU/ml VITAMIN D, 25-HYDROXY [...] date:12/22/2023 02:06:59 PM Interpretation: Performing Lab: Notes/Report: Original Ordering Provider: LOC MINA NP [employer], a member of [address] [address] Contract Management Specialist - Ialna Mcclendon MD GLYCATED HEMOGLOBIN A1C 6.9 <6.5 % ESTIMATED AVERAGE GLUCOSE 151 CBC Reviewed date:12/22/2023 12:04:22 PM Interpretation: Performing Lab: Notes/Report: Note Original Ordering Provider: LOC MINA NP [employer], a member of [address] [address] Contract Management Specialist - Ilana Mcclendon MD WBC 4.7 4.8-10.8 [...] Note Original Ordering Provider: LOC MINA NP [employer], a member of [address] [address] Contract Management Specialist - Ilana Mcclendon MD P[facility] Hemoglobin A1C Reviewed date:08/29/2024 08:33:02 AM Interpretation:6.7 Performing Lab: Notes/Report: 6.7 Reason For Referral No Information Medications Medication [...] Problem Malignant neoplasm o f female breast (990719543) Malignant neoplasm of unspecified site of unspecified female breast (C50.919) Active confirmed Problem Hypothyroidism (86691171) Hypothyroidism, unspecified (E03.9) Active confirmed Problem 40492267 Type 2 diabetes mellitus with unspecified complications (E11.8) Active confirmed Problem Type II diabetes mellitus without complication (129832282) Type 2 diabetes mellitus without complications (E11.9) Active confirmed Problem Vitamin D deficiency (31835150) Vitamin D deficiency, unspecified (E55.9) Active confirmed Problem Hyperlipidemia (39970823) Hyperlipidemia, unspecified (E78.5) Active confirmed Problem Sleep apnea (30556512) Sleep apnea, unspecified (G47.30) Active confirmed Problem Glaucoma (77135186) Unspecified glaucoma (H40.9) Active confirmed Problem Essential hypertension (35143230) Essential (primary) hypertension (I10) Active confirmed Problem Atherosclerotic hear t disease of [place] coronary artery without angina pectoris (486268296168696) Atherosclerotic heart disease of [place] coronary artery without angina pectoris (I25.10) Active confirmed Problem Adult health examination (657947821) Encounter for general adult medical examination without abnormal findings (Z00.00) Active confirmed Problem Body mass index 40+ - severely obese (344493871) Body mass index (BMI) 45.0-49.9, adult (Z68.42) Active confirmed Problem 148280953 Morbid obesity (E66.01) Active confirmed Problem Acquired hypothyroidism (467400635) Acquired hypothyroidism (E03.9) Active confirmed Problem 560492451 Lung nodule (R91.1) Active confirmed Problem Hyperlipoproteinemia (9095068) Acquired hyperlipoproteinemia (E78.5) Active confirmed Problem Adult health examination (622627282) Adult general medical exam (Z00.00) Active confirmed Problem Pain in wrist (71435409) Right wrist pain (M25.531) Active confirmed Problem 00013517 Vitamin D defici ency (E55.9) Active confirmed Problem 698992490 Body mass index [BMI] 45.0-49.9, adult (Z68.42) Active confirmed Problem 275378160 Lower extremity numbness (R20.0) Active confirmed Problem Avitaminosis D (27141401) Avitaminosis D (E55.9) Active confirmed Problem Endocrine/metabolic screening (617064167) Encounter for screening for endocrine disorder (Z13.29) Active confirmed Problem Abnormal metabolic state due to diabetes mellitus (877091173) Abnormal metabolic state due to diabetes mellitus (E11.9) Active confirmed Vital Signs Heart Rate 84 /min 08/29/2024 Oximetry 98 % 08/29/2024 Blood pressure diastolic 78 mm Hg 08/29/2024 Height 65 in 08/29/2024 Blood pressure systolic 128 mm Hg 08/29/2024 Weight 280 lbs 08/29/2024 BMI 46.59 kg/m2 08/29/2024 Encounters Encounter Location Date Provider Diagnosis [facility] [address] [place] [id number] 12/30/2023 LOC MINA Annual physical exam Z00.00 ; Encounter for screening for depression Z13.31 ; Encounter for screening for other disorder Z13.89 ; Type 2 diabetes mellitus without complications E11.9 ; Essential (primary) hypertension I10 ; Hyperlipidemia, unspecified E78.5 ; Sleep apnea, unspecified G47.30 ; Morbid obesity E66.01 ; Body mass index [BMI] 45.0-49.9, adult Z68.42 and Vitamin D deficiency E55.9 [facility] [address] [address] 04/30/2024 LOC WALKERHOT Type 2 diabetes harjit itus without complications E11.9 ; Essential (primary) hypertension I10 ; Hyperlipidemia, unspecified E78.5 ; Sleep apnea, unspecified G47.30 ; Morbid obesity E66.01 ; Body mass index [BMI] 45.0-49.9, adult Z68.42 and Vitamin D deficiency E55.9 [facility] [address] [address] 08/29/2024 [facility]ILD[facility] Type 2 diabetes harjit itus without complications E11.9 ; Essential (primary) hypertension I10 ; Acquired hyperlipoproteinemia E78.5 ; Morbid obesity E66.01 ; Sleep apnea, unspecified G47.30 ; Body mass index [BMI] 45.0-49.9, adult Z68.42 ; Vitamin D deficiency E55.9 and Acquired hypothyroidism E03.9 [facility] [address] [address] 11/09/2023 TALAL BARRON [facility] [address] [place] [address] 12/05/2023 TALAL BARRON [facility] [address] 05/03/2024 TALAL BARRON [facility] [address] [place] [address] 07/06/2024 [facility] [address] [place] [address] 08/03/2024 LOCFERNANDEZ MINA [facility] [address] [place] [address] 09/05/2024 LOC MINA Assessments Encounter Date Diagnosis (ICD Code) Assessment Notes Treatment Notes Treatment Clinical Notes Section Notes 12/30/2023 Encounter for screen ing for depression (ICD-10 - Z13.31) Patient presents for annual [facility] Acute Concerns/Proble m List: 12/30/2023 Chronic conditions [...] software and direct typing Please excuse inadvertent yarn spooler or typing errors, or uncorrected word substitutions Although every attempt has been made by the provider to proofread this document, occasional misspellings and typographical errors may still be present Due to the previous pandemic, and the use of personal protective equipment (PPE) This may decrease voice recognition accuracy Inadvertent yarn spooler errors may occur 12/30/2023 Annual physical exam (ICD-10 - Z00.00) Patient presents for annual [facility] Acute Concerns/Proble m List: 12/30/2023 Chronic conditions [...] software and direct typing Please excuse inadvertent yarn spooler or typing errors, or uncorrected word substitutions Although every attempt has been made by the provider to proofread this document, occasional misspellings and typographical errors may still be present Due to the previous pandemic, and the use of personal protective equipment (PPE) This may decrease voice recognition accuracy Inadvertent yarn spooler errors may occur 04/30/2024 Type 2 diabetes [...] software and direct typing Please excuse inadvertent yarn spooler or typing errors, or uncorrected word substitutions Although every attempt has been made by the provider to proofread this document, occasional misspellings and typographical errors may still be present Due to the previous pandemic, and the use of personal protective equipment (PPE) This may decrease voice recognition accuracy Inadvertent yarn spooler errors may occur 08/29/2024 Type 2 diabetes [...] software and direct typing Please excuse inadvertent yarn spooler or typing errors, or uncorrected word substitutions Although every attempt has been made by the provider to proofread this document, occasional misspellings and typographical errors may still be present Due to the previous pandemic, and the use of personal protective equipment (PPE) This may decrease voice recognition accuracy Inadvertent yarn spooler errors may occur 08/29/2024 Essential (primary) hypertension [...] software and direct typing Please excuse inadvertent yarn spooler or typing errors, or uncorrected word substitutions Although every attempt has been made by the provider to proofread this document, occasional misspellings and typographical errors may still be present Due to the previous pandemic, and the use of personal protective equipment (PPE) This may decrease voice recognition accuracy Inadvertent yarn spooler errors may occur 04/30/2024 Essential (primary) hypertension [...] software and direct typing Please excuse inadvertent yarn spooler or typing errors, or uncorrected word substitutions Although every attempt has been made by the provider to proofread this document, occasional misspellings and typographical errors may still be present Due to the previous pandemic, and the use of personal protective equipment (PPE) This may decrease voice recognition accuracy Inadvertent yarn spooler errors may occur 12/30/2023 Encounter for screen ing for other disorder (ICD-10 - Z13.89) Patient presents for annual [facility] Acute Concerns/Proble m List: 12/30/2023 Chronic conditions [...] software and direct typing Please excuse inadvertent yarn spooler or typing errors, or uncorrected word substitutions Although every attempt has been made by the provider to proofread this document, occasional misspellings and typographical errors may still be present Due to the previous pandemic, and the use of personal protective equipment (PPE) This may decrease voice recognition accuracy Inadvertent yarn spooler errors may occur 12/30/2023 Type 2 diabetes mellitus without complications (ICD-10 - E11.9) Patient presents for annual [facility] Acute Concerns/Proble m List: 12/30/2023 Chronic conditions [...] software and direct typing Please excuse inadvertent yarn spooler or typing errors, or uncorrected word substitutions Although every attempt has been made by the provider to proofread this document, occasional misspellings and typographical errors may still be present Due to the previous pandemic, and the use of personal protective equipment (PPE) This may decrease voice recognition accuracy Inadvertent yarn spooler errors may occur 04/30/2024 Hyperlipidemia, unspecified (ICD-10 [...] software and direct typing Please excuse inadvertent yarn spooler or typing errors, or uncorrected word substitutions Although every attempt has been made by the provider to proofread this document, occasional misspellings and typographical errors may still be present Due to the previous pandemic, and the use of personal protective equipment (PPE) This may decrease voice recognition accuracy Inadvertent yarn spooler errors may occur 08/29/2024 Acquired hyperlipoproteinemia (ICD-10 [...] software and direct typing Please excuse inadvertent yarn spooler or typing errors, or uncorrected word substitutions Although every attempt has been made by the provider to proofread this document, occasional misspellings and typographical errors may still be present Due to the previous pandemic, and the use of personal protective equipment (PPE) This may decrease voice recognition accuracy Inadvertent yarn spooler errors may occur 08/29/2024 Morbid obesity (ICD- [...] software and direct typing Please excuse inadvertent yarn spooler or typing errors, or uncorrected word substitutions Although every attempt has been made by the provider to proofread this document, occasional misspellings and typographical errors may still be present Due to the previous pandemic, and the use of personal protective equipment (PPE) This may decrease voice recognition accuracy Inadvertent yarn spooler errors may occur 04/30/2024 Sleep apnea, unspecified [...] software and direct typing Please excuse inadvertent yarn spooler or typing errors, or uncorrected word substitutions Although every attempt has been made by the provider to proofread this document, occasional misspellings and typographical errors may still be present Due to the previous pandemic, and the use of personal protective equipment (PPE) This may decrease voice recognition accuracy Inadvertent yarn spooler errors may occur 12/30/2023 Essential (primary) hypertension [...] software and direct typing Please excuse inadvertent yarn spooler or typing errors, or uncorrected word substitutions Although every attempt has been made by the provider to proofread this document, occasional misspellings and typographical errors may still be present Due to the previous pandemic, and the use of personal protective equipment (PPE) This may decrease voice recognition accuracy Inadvertent yarn spooler errors may occur 12/30/2023 Hyperlipidemia, unspecified (ICD-10 [...] software and direct typing Please excuse inadvertent yarn spooler or typing errors, or uncorrected word substitutions Although every attempt has been made by the provider to proofread this document, occasional misspellings and typographical errors may still be present Due to the previous pandemic, and the use of personal protective equipment (PPE) This may decrease voice recognition accuracy Inadvertent yarn spooler errors may occur 04/30/2024 Morbid obesity (ICD- [...] software and direct typing Please excuse inadvertent yarn spooler or typing errors, or uncorrected word substitutions Although every attempt has been made by the provider to proofread this document, occasional misspellings and typographical errors may still be present Due to the previous pandemic, and the use of personal protective equipment (PPE) This may decrease voice recognition accuracy Inadvertent yarn spooler errors may occur 08/29/2024 Sleep apnea, unspecified [...] software and direct typing Please excuse inadvertent yarn spooler or typing errors, or uncorrected word substitutions Although every attempt has been made by the provider to proofread this document, occasional misspellings and typographical errors may still be present Due to the previous pandemic, and the use of personal protective equipment (PPE) This may decrease voice recognition accuracy Inadvertent yarn spooler errors may occur 04/30/2024 Body mass index [...] software and direct typing Please excuse inadvertent yarn spooler or typing errors, or uncorrected word substitutions Although every attempt has been made by the provider to proofread this document, occasional misspellings and typographical errors may still be present Due to the previous pandemic, and the use of personal protective equipment (PPE) This may decrease voice recognition accuracy Inadvertent yarn spooler errors may occur 08/29/2024 Body mass index [...] software and direct typing Please excuse inadvertent yarn spooler or typing errors, or uncorrected word substitutions Although every attempt has been made by the provider to proofread this document, occasional misspellings and typographical errors may still be present Due to the previous pandemic, and the use of personal protective equipment (PPE) This may decrease voice recognition accuracy Inadvertent yarn spooler errors may occur 12/30/2023 Sleep apnea, unspecified [...] software and direct typing Please excuse inadvertent yarn spooler or typing errors, or uncorrected word substitutions Although every attempt has been made by the provider to proofread this document, occasional misspellings and typographical errors may still be present Due to the previous pandemic, and the use of personal protective equipment (PPE) This may decrease voice recognition accuracy Inadvertent yarn spooler errors may occur 08/29/2024 Vitamin D deficiency [...] software and direct typing Please excuse inadvertent yarn spooler or typing errors, or uncorrected word substitutions Although every attempt has been made by the provider to proofread this document, occasional misspellings and typographical errors may still be present Due to the previous pandemic, and the use of personal protective equipment (PPE) This may decrease voice recognition accuracy Inadvertent yarn spooler errors may occur 04/30/2024 Vitamin D deficiency [...] software and direct typing Please excuse inadvertent yarn spooler or typing errors, or uncorrected word substitutions Although every attempt has been made by the provider to proofread this document, occasional misspellings and typographical errors may still be present Due to the previous pandemic, and the use of personal protective equipment (PPE) This may decrease voice recognition accuracy Inadvertent yarn spooler errors may occur 12/30/2023 Morbid obesity (ICD- [...] software and direct typing Please excuse inadvertent yarn spooler or typing errors, or uncorrected word substitutions Although every attempt has been made by the provider to proofread this document, occasional misspellings and typographical errors may still be present Due to the previous pandemic, and the use of personal protective equipment (PPE) This may decrease voice recognition accuracy Inadvertent yarn spooler errors may occur 08/29/2024 Acquired hypothyroid ism [...] software and direct typing Please excuse inadvertent yarn spooler or typing errors, or uncorrected word substitutions Although every attempt has been made by the provider to proofread this document, occasional misspellings and typographical errors may still be present Due to the previous pandemic, and the use of personal protective equipment (PPE) This may decrease voice recognition accuracy Inadvertent yarn spooler errors may occur 12/30/2023 Body mass index [...] software and direct typing Please excuse inadvertent yarn spooler or typing errors, or uncorrected word substitutions Although every attempt has been made by the provider to proofread this document, occasional misspellings and typographical errors may still be present Due to the previous pandemic, and the use of personal protective equipment (PPE) This may decrease voice recognition accuracy Inadvertent yarn spooler errors may occur 12/30/2023 Vitamin D deficiency [...] software and direct typing Please excuse inadvertent yarn spooler or typing errors, or uncorrected word substitutions Although every attempt has been made by the provider to proofread this document, occasional misspellings and typographical errors may still be present Due to the previous pandemic, and the use of personal protective equipment (PPE) This may decrease voice recognition accuracy Inadvertent yarn spooler errors may occur Plan Of Treatment Pending Test Test Name Order Date Hemoglobin A1c 09/20/2018 Hemoglobin A1c 06/20/2018 Lipid Panel 06/20/2018 Lipid Panel 09/20/2018 Comp. Metabolic Panel (14) 09/20/2018 Comp. Metabolic Panel (14) 06/20/2018 CBC 06/20/2018 CBC 09/20/2018 Urinalysis 09/20/2018 Urinalysis 06/20/2018 25OH VITAMIN D 07/04/2023 25OH VITAMIN D 06/29/2022 CBC (COMPLETE BLOOD COUNT) 07/04/2023 CBC (COMPLETE BLOOD COUNT) 02/05/2020 CBC (COMPLETE BLOOD COUNT) 06/29/2022 CBC (COMPLETE BLOOD COUNT) 09/01/2020 CBC (COMPLETE BLOOD COUNT) 10/05/2017 COMPREHENSIVE METABOLIC PANEL 09/01/2020 COMPREHENSIVE METABOLIC PANEL 10/05/2017 COMPREHENSIVE METABOLIC PANEL 06/29/2022 COMPREHENSIVE METABOLIC PANEL 02/05/2020 COMPREHENSIVE METABOLIC PANEL 07/04/2023 HEMOGLOBIN A1C 06/29/2022 HEMOGLOBIN A1C 07/04/2023 HEMOGLOBIN A1C 02/05/2020 HEMOGLOBIN A1C 10/05/2017 HEMOGLOBIN A1C 03/24/2021 HEMOGLOBIN A1C 09/01/2020 LIPID PANEL 09/01/2020 LIPID PANEL 10/05/2017 LIPID PANEL 02/05/2020 LIPID PANEL 06/29/2022 LIPID PANEL 07/04/2023 MAGNESIUM 02/05/2020 MICROALBUMIN, URINE 10/05/2017 TSH 06/29/2022 TSH 07/04/2023 URINALYSIS W/REFLEX CULTURE 07/04/2023 URINALYSIS, COMPLETE 02/05/2020 URINALYSIS, COMPLETE 10/05/2017 XR Chest 2 Views 11/17/2021 XR Knee [...] Provider Name:LOC MINA, 12/24/2024 08:00:00 AM, [address], [address], [place], [address], Insurance Providers Payer Name Payer Address Payer Phone Subscriber Number Group Number Insured Name Patient Relationship to Insured Coverage Start Date Coverage End Date [employer]Veronika or Options [address] [place] [id number] QUANG ROBLES Self - patient is the [...]
--- NOTE | 2024-10-04 13:58 | HO.NEPHOV ---
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 She is known to have hypertension for sometime and has been on ACEI, nifedipine as well as labetalol. She has JAI and is uses CPAP. She has no H/O hypokalemia, hypercalcemia, uncontrolled thyroid disorders, palpitation, flushing or orthostatic symptom. She has a BMI of 46. She claims to be compliant with medications. She has H/O CAD and had PCI. She denies CVA, carotid stenosis, CHF, PAD or known CRISTINA. Her renal functions are normal and denies having proteinuria. She has dyslipidemia & is on statins and has not had Doppler of renal arteries. She denies edema, headache, chest pain, SOB, PND or orthopnea. She is a diabetic and is on metformin. She did not have any specific systemic complaint at the time of this office visit. FORMERLY [facility], [facility] Medical History (Updated 10/04/24 @ 14:29 by Sudheer Mahoney MD) Anemia Restless legs syndrome (RLS) Heart attack Thyroid activity decreased Hyperlipidemia Arthritis Obesity Vitamin D deficiency Hyperlipidemia Glaucoma HTN (hypertension) JAI on CPAP Diabetes Surgical History Stented coronary artery Hx of heart surgery History of carpal tunnel release Family History Father Cancer Mother Heart disease HTN (hypertension) Brother HTN (hypertension) Sister Breast cancer Family/Other No problems noted. Social History Alcohol intake: never Patient Tobacco Use Status: Former Tobacco user Review of Systems Const All systems reviewed & are unremarkable except as noted in HPI and below Physical Exam Vital Signs: Last Vital Signs Pulse 85 10/04/24 14:02 BP 130/62 10/04/24 14:02 Pulse Ox 96 10/04/24 14:02 Oxygen Delivery Method Room Air 10/04/24 14:02 BMI result Body Mass Index 46.9 Const General: comfortable and no acute distress Orientation/consciousness: patient oriented x3 HEENT Head: Yes normocephalic Mouth: Normal oral and palatal mucosa present Eyes EOM: EOMs intact bilaterally Neck Neck: Yes supple Resp Auscultation: clear to auscultation bilaterally Cardio Jugular venous distension: no JVD Rate: regular rate GI Palpation (GI): Soft to palpation Auscultation: normal bowel sounds General: Yes no CVA tenderness Back/Spine/Pelvis Back: no CVA tenderness Skin General skin exam: no rashes or lesions noted Neuro General: patient oriented x3 and moves all extremities Extrem General: Yes no pedal edema Assessment & Plan Assessment & Plan (1) HTN (hypertension): Code(s): I10 - Essential (primary) hypertension Category: Medical Qualifiers: Hypertension type: primary hypertension Qualified Code(s): I10 - Essential (primary) hypertension Plan Nancy has long standing hypertension and is on multiple BP lowering medications including ACEI, nifedipine and labetalol. She has JAI and is on CPAP. She should be on a low sodium diet and will benefit from weight loss. I have ordered 24 hour BPM. If her BP is high, I plan to do Doppler of her renal arteries. She will be a graet candidate for Spironolactone as she may be having increased mineralocorticoid activity. I plan to do renin, aldosterone, cortisol and thyroid function prior to new medication, if needed. All these have been explained and answered all questions. Further management is pending evolving data Orders: Orders AMB 24 HR B/P Monitor PLACEMENT 10/04/24 I10 - Essential (primary) hypertension Coding Level of Care Code New Pt Level 4 (34629) Diagnoses Primary hypertension I10 Hypertension type: primary hypertension
[2024-10-04 14:02] VITALS: BP 130/62; PULSE 85; O2SAT 96; BMI 46.9
== END 2024-10-04 14:32 | disposition home or self-care (01) ==
LOC: HO.HKAS 13:46
PROVIDERS: PCP Internal Medicine; Referring Provider Nurse Practitioner Family; Visit Provider Internal Medicine Nephrology
DX: I10 Essential (primary) hypertension (principal)
CPT/HCPCS: 99204

== ENCOUNTER → 2024-10-04 13:45 | Outpatient (BNVA) | payer OTHER, SELFPAY | PROVIDERS: PCP Internal Medicine; Referring Provider Nurse Practitioner Family; Visit Provider Internal Medicine Nephrology | DX: I10 Essential (primary) hypertension (principal); E11.9 Type 2 diabetes mellitus without complications; Z79.84 Long term (current) use of oral hypoglycemic drugs | CPT/HCPCS: 99202 ==

== ENCOUNTER 2024-11-01 09:49 | Outpatient (AMB) | payer OTHER, SELFPAY ==
[2024-11-01 09:52] VITALS: BP 131/70; PULSE 78; O2SAT 98; BMI 46.9
--- NOTE | 2024-11-01 09:52 | HO.NEPHOV_ITS ---
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 She is known to have hypertension for sometime and has been on ACEI, nifedipine as well as labetalol. She has JAI and is uses CPAP. She has no H/O hypokalemia, hypercalcemia, uncontrolled thyroid disorders, palpitation, flushing or orthostatic symptom. She has a BMI of 46. She claims to be compliant with medications. She has H/O CAD and had PCI. She denies CVA, carotid stenosis, CHF, PAD or known CRISTINA. Her renal functions are normal and denies having proteinuria. She has dyslipidemia & is on statins and has not had Doppler of renal arteries. She denies edema, headache, chest pain, SOB, PND or orthopnea. She is a diabetic and is on metformin. She had a 24 hour BPM which showed uncontrolled BP at night. She did not have any specific systemic complaint at the time of this office visit. [facility] Medical History Anemia Restless legs syndrome (RLS) Heart attack Thyroid activity decreased Hyperlipidemia Arthritis Obesity Vitamin D deficiency Hyperlipidemia Glaucoma HTN (hypertension) JAI on CPAP Diabetes Surgical History Stented coronary artery Hx of heart surgery History of carpal tunnel release Family History Father Cancer Mother Heart disease HTN (hypertension) Brother HTN (hypertension) Sister Breast cancer Family/Other No problems noted. Social History Alcohol intake: never Patient Tobacco Use Status: Former Tobacco user Review of Systems Const All systems reviewed & are unremarkable except as noted in HPI and below Physical Exam Vital Signs: Last Vital Signs Pulse 78 11/01/24 09:52 BP 131/70 11/01/24 09:52 Pulse Ox 98 11/01/24 09:52 Oxygen Delivery Method Room Air 11/01/24 09:52 BMI result Body Mass Index 46.9 Const General: comfortable and no acute distress Orientation/consciousness: patient oriented x3 HEENT Head: Yes normocephalic Mouth: Normal oral and palatal mucosa present Eyes EOM: EOMs intact bilaterally Neck Neck: Yes supple Resp Auscultation: clear to auscultation bilaterally Cardio Jugular venous distension: no JVD Rate: regular rate GI Palpation (GI): Soft to palpation Auscultation: normal bowel sounds General: Yes no CVA tenderness Back/Spine/Pelvis Back: no CVA tenderness Skin General skin exam: no rashes or lesions noted Neuro General: patient oriented x3 and moves all extremities Extrem General: Yes no pedal edema Assessment & Plan Assessment & Plan (1) HTN (hypertension): Code(s): I10 - Essential (primary) hypertension Category: Medical Qualifiers: Hypertension type: primary hypertension Qualified Code(s): I10 - Essential (primary) hypertension Plan Nancy has long standing hypertension and is on multiple BP lowering medications including ACEI, nifedipine and labetalol. She has JAI and is on CPAP. She should be on a low sodium diet and will benefit from weight loss. Her 24 hour BPM showed high readings at night. I increased her Nifedipine to 90 mg daily. If her BP conitnues to be high, I plan to do Doppler of her renal arteries. She will be a great candidate for Spironolactone as she may be having increased mineralocorticoid activity. I plan to do renin, aldosterone, cortisol and thyroid function prior to new medication, if needed. All these have been explained and answered all questions. Medications: Changed From nifedipine ER 90 mg PO DAILY To nifedipine ER 90 mg (1.5 x 60 mg) PO DAILY 45 tabs 11RF 30 days Coding Level of Care Code Est Pt Level 4 (68115) Diagnoses Primary hypertension I10 Hypertension type: primary hypertension
--- OUTSIDE RECORDS SUMMARY | 2024-11-01 11:10 | XMS_ITS | Patient Health Record ---
Author Organization [facility] [address] Address [address] [place] [address] Care Team Providers [employer] Ax Solution Architect Name Role Phone LOC MINA Unavailable [phone] CHANCE BARRON Unavailable [phone] Allergies Allergen (clinical drug ingredient) Drug/Non Drug Allergy documented on EMR Reaction Allergy Type Onset Date Status Motrin Unknown Drug Allergy Active acetaminophen / oxycodone Percocet Unknown Drug Allergy Active Results Component Value Reference Range Notes UA WITH CULTURE IF INDICATED Reviewed date:12/22/2023 12:04:22 PM Interpretation: Performing Lab: Notes/Report: Original Ordering Provider: LOC MINA NP [facility], [place] [address] [employer] Back Counter Man - Ilana Mcclendon MD GLUCOSE, (UA) NEGATIVE NEGATIVE mg/dL BILIRUBIN, URINE NEGATIVE NEGATIVE KETONE, URINE NEGATIVE NEGATIVE mg/dL SPECIFIC GRAVITY, URINE 1.018 1.003-1.030 BLOOD, URINE NEGATIVE NEGATIVE PH, URINE 5.0 5.0-8.0 PROTEIN, URINE TRACE <= TRACE mg/dl UROBILINOGEN, URINE 0.2 0.2-1.0 E.U./dL NITRITE, URINE NEGATIVE NEGATIVE LEUKOCYTE ESTERASE, URINE NEGATIVE NEGATIVE TSH Reviewed date:12/22/2023 01:10:16 PM Interpretation: Performing Lab: Notes/Report: [facility], a member of [address] [address] [employer] Back Counter Man - Ilana Mcclendon MD TSH 1.45 0.40-4.00 uIU/ml VITAMIN D, 25-HYDROXY [...] Notes/Report: Original Ordering Provider: LOC MINA NP [facility], a member of [address] [address] [employer] Back Counter Man - Ilana Mcclendon MD GLYCATED HEMOGLOBIN A1C 6.9 <6.5 % ESTIMATED AVERAGE GLUCOSE 151 CBC Reviewed date:12/22/2023 12:04:22 PM Interpretation: Performing Lab: Notes/Report: Note Original Ordering Provider: LOC MINA NP [facility], a member of [address] [address] [employer] Back Counter Man - Ilana Mcclendon MD WBC 4.7 4.8-10.8 [...] Note Original Ordering Provider: LOC MINA NP [facility], a member of [address] [address] [employer] Back Counter Man - Ilana Mcclendon MD PPC Hemoglobin A1C Reviewed date:08/29/2024 08:33:02 AM Interpretation:6.7 Performing Lab: Notes/Report: 6.7 Reason For Referral No Information Medications Medication SIG (Take, Route, Frequency, Duration) Notes Start Date End Date Status Labetalol HCl 100 MG TAKE 1/2 TABLET BY MOUTH EVERY DAY; Duration: 90 Active Labetalol HCl 300 MG TAKE 1 TABLET BY MO [facility] TWICE DAILY; Duration: 90 Active FreeStyle Lite - use to test blood oliveira gar in vitro dx e11.9 twice daily; Duration: 30 days Active NIFEdipine ER 60 MG TAKE 1 TABLET BY ALENA TWICE DAILY ON AN EMPTY STOMACH; Duration: 90 Active Aspirin 81 81 MG 1 tablet Orally Once a day; Duration: 30 day(s) Active Levothyroxine Sodium 50 MCG TAKE 1 TABLE T BY MOUTH EVERY DAY; Duration: 90 Active Trulance 3 MG 1 tablet Orally Once a day Active metFORMIN HCl ER 500 MG TAKE 1 TABLET BY MOUTH EVERY DAY; Duration: 90 Active CoQ-10 100 MG 1 capsule with a toni l Orally Once a day; Duration: 30 day(s) Active Lisinopril 40 MG TAKE 1 TABLET BY ALENA TH TWICE DAILY; Duration: 90 Active Xalatan 0.005 % 1 drop into affected eye in the evening Ophthalmic Once a day Active FreeStyle Lancets - use to test blood oliveira gar vitro dx e11.9 twice daily; Duration: 30 days Active Gabapentin 100 MG 1 capsule Orally Onc e a day Active Labetalol HCl 300 MG 1 tablet Orally Twi ce a day; Duration: 90 days Active Vitamin D3 125 MCG (5000 UT) 1 tablet Or ally Once a day; Duration: 90 days Active NIFEdipine ER 60 MG 1 tablet on an empty stomach Orally BID; Duration: 90 days Active Immunizations Vaccine Route Administration Date Status Comme nts influenza IM Intramuscular 02/05/2020 Administered influenza IM Intramuscular 02/12/2022 Administered Social History Tobacco Use: Social History Observation Description Date Details (start date - stop date) Former Smoker NA - NA Tobacco Use/Smoking Question Answer Notes Are you a former smoker Section Notes: Quit Smoking [id number] for a bout 1/2 pk Quit Smoking [...] Problem Malignant neoplasm o f female breast (715259460) Malignant neoplasm of unspecified site of unspecified female breast (C50.919) Active confirmed Problem Hypothyroidism (27148659) Hypothyroidism, unspecified (E03.9) Active confirmed Problem 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) Type 2 diabetes mellitus with unspecified complications (E11.8) Active confirmed Problem Type II diabetes mellitus without complication (537502721) Type 2 diabetes mellitus without complications (E11.9) Active confirmed Problem Vitamin D deficiency (65819476) Vitamin D deficiency, unspecified (E55.9) Active confirmed Problem Hyperlipidemia (40740561) Hyperlipidemia, unspecified (E78.5) Active confirmed Problem Sleep apnea (11963106) Sleep apnea, unspecified (G47.30) Active confirmed Problem Glaucoma (79931293) Unspecified glaucoma (H40.9) Active confirmed Problem Essential hypertension (34199447) Essential (primary) hypertension (I10) Active confirmed Problem Atherosclerotic hear t disease of [place] coronary artery without angina pectoris (461018529765908) Atherosclerotic heart disease of [place] coronary artery without angina pectoris (I25.10) Active confirmed Problem Adult health examination (156008875) Encounter for general adult medical examination without abnormal findings (Z00.00) Active confirmed Problem Body mass index 40+ - severely obese (501015938) Body mass index (BMI) 45.0-49.9, adult (Z68.42) Active confirmed Problem Morbid obesity (152367097) Morbid obesity (E66.01) Active confirmed Problem Acquired hypothyroidism (607001168) Acquired hypothyroidism (E03.9) Active confirmed Problem Solitary nodule of lung (072720145) Lung nodule (R91.1) Active confirmed Problem Hyperlipoproteinemia (2540704) Acquired hyperlipoproteinemia (E78.5) Active confirmed Problem Adult health examination (591433843) Adult general medical exam (Z00.00) Active confirmed Problem Pain in wrist (45470945) Right wrist pain (M25.531) Active confirmed Problem Vitamin D deficiency (38123038) Vitamin D deficiency (E55.9) Active confirmed Problem Body mass index 40+ - severely obese (060258318) Body mass index [BMI] 45.0-49.9, adult (Z68.42) Active confirmed Problem Skin sensation disturbance (63578903) Lower extremity numbness (R20.0) Active confirmed Problem Avitaminosis D (81492812) Avitaminosis D (E55.9) Active confirmed Problem Endocrine/metabolic screening (470797753) Encounter for screening for endocrine disorder (Z13.29) Active confirmed Problem Abnormal metabolic state due to diabetes mellitus (818829827) Abnormal metabolic state due to diabetes mellitus (E11.9) Active confirmed Vital Signs Heart Rate 84 /min 08/29/2024 Oximetry 98 % 08/29/2024 Blood pressure diastolic 78 mm Hg 08/29/2024 Height 65 in 08/29/2024 Blood pressure systolic 128 mm Hg 08/29/2024 Weight 280 lbs 08/29/2024 BMI 46.59 kg/m2 08/29/2024 Encounters Encounter Location Date Provider Diagnosis [facility] [address] [address] 12/30/2023 LOC MINA Annual physical exam Z00.00 [...] D deficiency E55.9 [facility] [address] 04/30/2024 LOC MINA Type 2 diabetes harjit itus without complications E11.9 ; Essential (primary) hypertension I10 ; Hyperlipidemia, unspecified E78.5 ; Sleep apnea, unspecified G47.30 ; Morbid obesity E66.01 ; Body mass index [BMI] 45.0-49.9, adult Z68.42 and Vitamin D deficiency E55.9 [facility] [address] 08/29/2024 LOC MINA Type 2 diabetes harjit itus without complications E11.9 ; Essential (primary) hypertension I10 ; Acquired hyperlipoproteinemia E78.5 ; Morbid obesity E66.01 ; Sleep apnea, unspecified G47.30 ; Body mass index [BMI] 45.0-49.9, adult Z68.42 ; Vitamin D deficiency E55.9 and Acquired hypothyroidism E03.9 [facility] [address] [address] 11/09/2023 TALAL BARRON [facility] [address] [place] [address] 12/05/2023 TALAL BARRON [facility] [address] 05/03/2024 TALAL BARRON [facility] [address] [place] [address] 07/06/2024 LOC MINA [facility] [address] [place] [address] 08/03/2024 LOC MINA [facility] [address] [place] [address] 09/05/2024 LOC KEELEY [facility] [address] [place] [address] 10/05/2024 LOC BORKARMA Assessments Encounter Date Diagnosis (ICD Code) Assessment Notes Treatment Notes Treatment Clinical Notes Section Notes 12/30/2023 Encounter for screen ing for depression (ICD-10 - Z13.31) Patient presents for annual [facility] Acute Concerns/Proble [...] software and direct typing Please excuse inadvertent medical transcription or typing errors, or uncorrected word substitutions Although every attempt has been made by the provider to proofread this document, occasional misspellings and typographical errors may still be present Due to the previous pandemic, and the use of personal protective equipment (PPE) This may decrease voice recognition accuracy Inadvertent medical transcription errors may occur 12/30/2023 Annual physical exam (ICD-10 - Z00.00) Patient presents for annual [facility] Acute Concerns/Proble [...] software and direct typing Please excuse inadvertent medical transcription or typing errors, or uncorrected word substitutions Although every attempt has been made by the provider to proofread this document, occasional misspellings and typographical errors may still be present Due to the previous pandemic, and the use of personal protective equipment (PPE) This may decrease voice recognition accuracy Inadvertent medical transcription errors may occur 04/30/2024 Type 2 diabetes [...] software and direct typing Please excuse inadvertent medical transcription or typing errors, or uncorrected word substitutions Although every attempt has been made by the provider to proofread this document, occasional misspellings and typographical errors may still be present Due to the previous pandemic, and the use of personal protective equipment (PPE) This may decrease voice recognition accuracy Inadvertent medical transcription errors may occur 08/29/2024 Type 2 diabetes [...] software and direct typing Please excuse inadvertent medical transcription or typing errors, or uncorrected word substitutions Although every attempt has been made by the provider to proofread this document, occasional misspellings and typographical errors may still be present Due to the previous pandemic, and the use of personal protective equipment (PPE) This may decrease voice recognition accuracy Inadvertent medical transcription errors may occur 08/29/2024 Essential (primary) hypertension [...] software and direct typing Please excuse inadvertent medical transcription or typing errors, or uncorrected word substitutions Although every attempt has been made by the provider to proofread this document, occasional misspellings and typographical errors may still be present Due to the previous pandemic, and the use of personal protective equipment (PPE) This may decrease voice recognition accuracy Inadvertent medical transcription errors may occur 04/30/2024 Essential (primary) hypertension [...] software and direct typing Please excuse inadvertent medical transcription or typing errors, or uncorrected word substitutions Although every attempt has been made by the provider to proofread this document, occasional misspellings and typographical errors may still be present Due to the previous pandemic, and the use of personal protective equipment (PPE) This may decrease voice recognition accuracy Inadvertent medical transcription errors may occur 12/30/2023 Encounter for screen ing for other disorder (ICD-10 - Z13.89) Patient presents for annual [facility] Acute Concerns/Proble m List: 12/30/2023 Chronic conditions [...] software and direct typing Please excuse inadvertent medical transcription or typing errors, or uncorrected word substitutions Although every attempt has been made by the provider to proofread this document, occasional misspellings and typographical errors may still be present Due to the previous pandemic, and the use of personal protective equipment (PPE) This may decrease voice recognition accuracy Inadvertent medical transcription errors may occur 12/30/2023 Type 2 diabetes mellitus without complications (ICD-10 - E11.9) Patient presents for annual [facility] Acute Concerns/Proble m List: 12/30/2023 Chronic conditions [...] software and direct typing Please excuse inadvertent medical transcription or typing errors, or uncorrected word substitutions Although every attempt has been made by the provider to proofread this document, occasional misspellings and typographical errors may still be present Due to the previous pandemic, and the use of personal protective equipment (PPE) This may decrease voice recognition accuracy Inadvertent medical transcription errors may occur 04/30/2024 Hyperlipidemia, unspecified (ICD-10 [...] software and direct typing Please excuse inadvertent medical transcription or typing errors, or uncorrected word substitutions Although every attempt has been made by the provider to proofread this document, occasional misspellings and typographical errors may still be present Due to the previous pandemic, and the use of personal protective equipment (PPE) This may decrease voice recognition accuracy Inadvertent medical transcription errors may occur 08/29/2024 Acquired hyperlipoproteinemia (ICD-10 [...] software and direct typing Please excuse inadvertent medical transcription or typing errors, or uncorrected word substitutions Although every attempt has been made by the provider to proofread this document, occasional misspellings and typographical errors may still be present Due to the previous pandemic, and the use of personal protective equipment (PPE) This may decrease voice recognition accuracy Inadvertent medical transcription errors may occur 08/29/2024 Morbid obesity (ICD- [...] software and direct typing Please excuse inadvertent medical transcription or typing errors, or uncorrected word substitutions Although every attempt has been made by the provider to proofread this document, occasional misspellings and typographical errors may still be present Due to the previous pandemic, and the use of personal protective equipment (PPE) This may decrease voice recognition accuracy Inadvertent medical transcription errors may occur 04/30/2024 Sleep apnea, unspecified [...] software and direct typing Please excuse inadvertent medical transcription or typing errors, or uncorrected word substitutions Although every attempt has been made by the provider to proofread this document, occasional misspellings and typographical errors may still be present Due to the previous pandemic, and the use of personal protective equipment (PPE) This may decrease voice recognition accuracy Inadvertent medical transcription errors may occur 12/30/2023 Essential (primary) hypertension (ICD-10 - I10) Patient presents for annual [facility] Acute Concerns/Proble m List: 12/30/2023 Chronic conditions [...] software and direct typing Please excuse inadvertent medical transcription or typing errors, or uncorrected word substitutions Although every attempt has been made by the provider to proofread this document, occasional misspellings and typographical errors may still be present Due to the previous pandemic, and the use of personal protective equipment (PPE) This may decrease voice recognition accuracy Inadvertent medical transcription errors may occur 04/30/2024 Morbid obesity (ICD- [...] software and direct typing Please excuse inadvertent medical transcription or typing errors, or uncorrected word substitutions Although every attempt has been made by the provider to proofread this document, occasional misspellings and typographical errors may still be present Due to the previous pandemic, and the use of personal protective equipment (PPE) This may decrease voice recognition accuracy Inadvertent medical transcription errors may occur 08/29/2024 Sleep apnea, unspecified [...] software and direct typing Please excuse inadvertent medical transcription or typing errors, or uncorrected word substitutions Although every attempt has been made by the provider to proofread this document, occasional misspellings and typographical errors may still be present Due to the previous pandemic, and the use of personal protective equipment (PPE) This may decrease voice recognition accuracy Inadvertent medical transcription errors may occur 12/30/2023 Hyperlipidemia, unspecified (ICD-10 [...] software and direct typing Please excuse inadvertent medical transcription or typing errors, or uncorrected word substitutions Although every attempt has been made by the provider to proofread this document, occasional misspellings and typographical errors may still be present Due to the previous pandemic, and the use of personal protective equipment (PPE) This may decrease voice recognition accuracy Inadvertent medical transcription errors may occur 12/30/2023 Sleep apnea, unspecified (ICD-10 - G47.30) Patient presents for annual [facility] Acute Concerns/Proble m List: 12/30/2023 Chronic conditions [...] software and direct typing Please excuse inadvertent medical transcription or typing errors, or uncorrected word substitutions Although every attempt has been made by the provider to proofread this document, occasional misspellings and typographical errors may still be present Due to the previous pandemic, and the use of personal protective equipment (PPE) This may decrease voice recognition accuracy Inadvertent medical transcription errors may occur 04/30/2024 Body mass index [...] software and direct typing Please excuse inadvertent medical transcription or typing errors, or uncorrected word substitutions Although every attempt has been made by the provider to proofread this document, occasional misspellings and typographical errors may still be present Due to the previous pandemic, and the use of personal protective equipment (PPE) This may decrease voice recognition accuracy Inadvertent medical transcription errors may occur 08/29/2024 Body mass index [...] software and direct typing Please excuse inadvertent medical transcription or typing errors, or uncorrected word substitutions Although every attempt has been made by the provider to proofread this document, occasional misspellings and typographical errors may still be present Due to the previous pandemic, and the use of personal protective equipment (PPE) This may decrease voice recognition accuracy Inadvertent medical transcription errors may occur 08/29/2024 Vitamin D deficiency [...] software and direct typing Please excuse inadvertent medical transcription or typing errors, or uncorrected word substitutions Although every attempt has been made by the provider to proofread this document, occasional misspellings and typographical errors may still be present Due to the previous pandemic, and the use of personal protective equipment (PPE) This may decrease voice recognition accuracy Inadvertent medical transcription errors may occur 12/30/2023 Morbid obesity (ICD- [...] software and direct typing Please excuse inadvertent medical transcription or typing errors, or uncorrected word substitutions Although every attempt has been made by the provider to proofread this document, occasional misspellings and typographical errors may still be present Due to the previous pandemic, and the use of personal protective equipment (PPE) This may decrease voice recognition accuracy Inadvertent medical transcription errors may occur 04/30/2024 Vitamin D deficiency [...] software and direct typing Please excuse inadvertent medical transcription or typing errors, or uncorrected word substitutions Although every attempt has been made by the provider to proofread this document, occasional misspellings and typographical errors may still be present Due to the previous pandemic, and the use of personal protective equipment (PPE) This may decrease voice recognition accuracy Inadvertent medical transcription errors may occur 12/30/2023 Body mass index [...] software and direct typing Please excuse inadvertent medical transcription or typing errors, or uncorrected word substitutions Although every attempt has been made by the provider to proofread this document, occasional misspellings and typographical errors may still be present Due to the previous pandemic, and the use of personal protective equipment (PPE) This may decrease voice recognition accuracy Inadvertent medical transcription errors may occur 08/29/2024 Acquired hypothyroid ism [...] software and direct typing Please excuse inadvertent medical transcription or typing errors, or uncorrected word substitutions Although every attempt has been made by the provider to proofread this document, occasional misspellings and typographical errors may still be present Due to the previous pandemic, and the use of personal protective equipment (PPE) This may decrease voice recognition accuracy Inadvertent medical transcription errors may occur 12/30/2023 Vitamin D deficiency [...] software and direct typing Please excuse inadvertent medical transcription or typing errors, or uncorrected word substitutions Although every attempt has been made by the provider to proofread this document, occasional misspellings and typographical errors may still be present Due to the previous pandemic, and the use of personal protective equipment (PPE) This may decrease voice recognition accuracy Inadvertent medical transcription errors may occur Plan Of Treatment Pending Test Test Name Order Date Hemoglobin A1c 06/20/2018 Hemoglobin A1c 09/20/2018 Lipid Panel 09/20/2018 Lipid Panel 06/20/2018 Comp. Metabolic Panel (14) 06/20/2018 Comp. Metabolic Panel (14) 09/20/2018 CBC 09/20/2018 CBC 06/20/2018 Urinalysis 06/20/2018 Urinalysis 09/20/2018 25OH VITAMIN D 07/04/2023 25OH VITAMIN D 06/29/2022 CBC (COMPLETE BLOOD COUNT) 06/29/2022 CBC (COMPLETE BLOOD COUNT) 09/01/2020 CBC (COMPLETE BLOOD COUNT) 10/05/2017 CBC (COMPLETE BLOOD COUNT) 07/04/2023 CBC (COMPLETE BLOOD COUNT) 02/05/2020 COMPREHENSIVE METABOLIC PANEL 02/05/2020 COMPREHENSIVE METABOLIC PANEL 07/04/2023 COMPREHENSIVE METABOLIC PANEL 09/01/2020 COMPREHENSIVE METABOLIC PANEL 10/05/2017 COMPREHENSIVE METABOLIC PANEL 06/29/2022 HEMOGLOBIN A1C 09/01/2020 HEMOGLOBIN A1C 10/05/2017 HEMOGLOBIN A1C 06/29/2022 HEMOGLOBIN A1C 07/04/2023 HEMOGLOBIN A1C 03/24/2021 HEMOGLOBIN A1C 02/05/2020 LIPID PANEL 02/05/2020 LIPID PANEL 07/04/2023 LIPID PANEL 09/01/2020 LIPID PANEL 10/05/2017 LIPID PANEL 06/29/2022 MAGNESIUM 02/05/2020 MICROALBUMIN, URINE 10/05/2017 TSH 06/29/2022 TSH 07/04/2023 URINALYSIS W/REFLEX CULTURE 07/04/2023 URINALYSIS, COMPLETE 02/05/2020 URINALYSIS, COMPLETE 10/05/2017 XR Chest 2 Views 11/17/2021 XR Knee 3 Views RT 11/25/2020 XR Wrist 2 Views RT 10/12/2021 HEMOGLOBIN A1c 12/24/2021 COMPLETE URINALYSIS 06/29/2022 COMPLETE URINALYSIS 09/01/2020 Future Test Test Name Order Date 25OH VITAMIN D 03/28/2021 HEMOGLOBIN A1C 03/28/2021 MICROALBUMIN, URINE 03/28/2021 25OH VITAMIN D 12/23/2021 CBC (COMPLETE BLOOD COUNT) 12/23/2021 COMPREHENSIVE METABOLIC PANEL 12/23/2021 HEMOGLOBIN A1C 12/23/2021 LIPID PANEL 12/23/2021 MICROALBUMIN, URINE 12/23/2021 T4, TOTAL 12/23/2021 TSH 12/23/2021 URINALYSIS W/REFLEX CULTURE 12/23/2021 HEMOGLOBIN A1C 06/29/2023 Next Appt Details Provider Name:LOC MINA, 12/24/2024 08:00:00 AM, [address] [place] [address], [place], [address], Insurance Providers Payer Name Payer Address Payer Phone Subscriber Number Group Number Insured Name Patient Relationship to Insured Coverage Start Date Coverage End Date [employer] or Options [address] [place] [id number] [phone] [id number] QUANG ROBLES Self - patient is the [...]
== END 2024-11-01 10:18 | disposition home or self-care (01) ==
LOC: HO.HKAS 09:50
PROVIDERS: PCP Internal Medicine; Visit Provider Internal Medicine Nephrology
DX: I10 Essential (primary) hypertension (principal)
CPT/HCPCS: 99214

== ENCOUNTER → 2024-11-01 09:49 | Outpatient (BNVA) | payer OTHER, SELFPAY | PROVIDERS: PCP Internal Medicine; Visit Provider Internal Medicine Nephrology | DX: I10 Essential (primary) hypertension (principal) | CPT/HCPCS: 99212 ==

== ENCOUNTER 2024-12-06 10:16 | Outpatient (AMB) | payer MEDICARE, MEDICAID, SELFPAY ==
--- OUTSIDE RECORDS SUMMARY | 2024-12-04 08:40 | XMS_ITS | Encounter Summary ---
Author Organization [facility] Address [address] [place] [address] Care Team Providers Care Machine Hoop Maker Helper Name Role Phone Humberto Sarabia MD Primary Care Provider [phone] Reason for Visit * Reason Comments Follow-up 1 year Encounter Details Date Type Department Care Team (Late st Contact Info) Description 12/04/2024 8:40 AM EDT Office Visit [facility] [address] [place] [id number] Galina Medel NP [address] [place] [address] Coronary artery disease involving transplanted heart, unspecified vessel or lesion type, unspecified whether angina present (Primary Dx) Social History Tobacco Use Types Packs/Day Years Used Date Smoking Tobacco: Former Smokeless Tobacco: Never Tobacco Cessation:Counseling Given: Not Answered Alcohol Use Standard Drinks/Week Comments Yes 1 (1 standard drink = 0.6 oz pur e alcohol) Comments Unknown Sex and Gender Information Value Date Recorded Sex Assigned at Not on file Legal Sex Female 9:45 AM EST Gender Identity Not on file Sexual Orientation Not on file documented as of this encounter Last Filed Vital Signs Vital Sign Reading Time Taken Comments Blood Pressure 120/60 12/04/2024 8:33 AM EDT Pulse 71 12/04/2024 8:33 AM EDT Temperature - - Respiratory Rate - - Oxygen Saturation 98% 12/04/2024 8:33 AM EDT Inhaled Oxygen Concentration - - Weight 127 kg (281 lb) 12/04/2024 8:33 AM EDT Height 165.1 cm (5' 5 ) 12/04/2024 8:33 AM EDT Body Mass Index 46.76 12/04/2024 8:33 AM EDT documented in this encounter Plan of Treatment Upcoming Encounters Date Type Department Care Team (Late st Contact Info) Description 07/08/2025 9:30 AM EST Office Visit Pulmonolgy - [address] [facility] [address] [place] [phone] Meir Guerrero MD [address] [facility] [address] [place] [address] documented as of this encounter Procedures Procedure Name Priority Date/Time Associated Diagnosis Comments ECG 12-LEAD Routine 12/04/2024 8:57 AM EDT Coronary artery disease involving transplanted heart, unspecified vessel or lesion type, unspecified whether angina present documented in this encounter Results * Lipid panel with reflex to direct LDL (12/04/2024 9:17 AM EDT) Cholesterol 133 0 - 200 mg/dL LAB CHEMISTRY METHOD 12/04/2024 3:27 PM EDT [facility] Triglycerides 81 0 - 150 mg/dL LAB CHEMISTRY METHOD 12/04/2024 3:27 PM EDT [facility] HDL 59 >=40 mg/dL LAB CHEMISTRY METHOD 12/04/2024 3:27 PM EDT [facility] LDL Calculated 58 0 - 100 mg/dL LAB CHEMISTRY METHOD 12/04/2024 3:27 PM EDT [facility] VLDL Cholesterol Ken[place] 16.2 mg/dL LAB CHEMISTRY METHOD 12/04/2024 3:27 PM EDT [facility] Non HDL Chol. (LDL+VLDL) 74 <145 mg/dL LAB CHEMISTRY METHOD 12/04/2024 3:27 PM EDT [facility] Chol/HDL Ratio 2.3 0.0 - 4.4 LAB CHEMISTRY METHOD 12/04/2024 3:27 PM [facility] Blood Venous blood specimen / Unknown Venipuncture / Unknown 12/04/2024 9:17 AM EDT 12/04/2024 9:17 AM EDT us Galina Medel [employer] LAB BLOOD ORDERABLES Final R esult [facility] [address] [place] [address], * (ABNORMAL) Comprehensive metabolic panel (12/04/2024 9:17 AM EDT) Sodium 140 133 - 145 mmol/L LAB CHEMISTRY METHOD 12/04/2024 3:27 PM [facility] Potassium 4.4 3.5 - 5.5 mmol/L LAB CHEMISTRY METHOD 12/04/2024 3:27 PM [facility] Chloride 108 96 - 110 mmol/L LAB CHEMISTRY METHOD 12/04/2024 3:27 PM [facility] CO2 25 21 - 32 mmol/L LAB CHEMISTRY METHOD 12/04/2024 3:27 PM [facility] Anion Gap 7 3 - 11 LAB CHEMISTRY METHOD 12/04/2024 3:27 PM [facility] Glucose 129(H) 70 - 100 mg/dL LAB CHEMISTRY METHOD 12/04/2024 3:27 PM [facility] BUN 12 5 - 25 mg/dL LAB CHEMISTRY METHOD 12/04/2024 3:27 PM [facility] Creatinine 1.02 0.50 - 1.10 mg/dL LAB CHEMISTRY METHOD 12/04/2024 3:27 PM [facility] eGFR 61 >=60 mL/min/1. 73m2 LAB CHEMISTRY METHOD 12/04/2024 3:27 PM [facility] Comment:Calculation based on the Chronic Kidney Disease Epidemiology Collaboration (CKD-EPI) equation refit without adjustment for race. BUN/Creatinine Ratio 11.8 LAB CHEMISTRY METHOD 12/04/2024 3:27 PM EDT [facility] Calcium 9.3 8.5 - 10.5 mg/dL LAB CHEMISTRY METHOD 12/04/2024 3:27 PM [facility] AST (SGOT) 33 10 - 42 unit/L LAB CHEMISTRY METHOD 12/04/2024 3:27 PM T [facility] ALT (SGPT) 50 10 - 60 unit/L LAB CHEMISTRY METHOD 12/04/2024 3:27 PM [facility] Alkaline Phosphatase 81 42 - 121 unit/L LAB CHEMISTRY METHOD 12/04/2024 3:27 PM [facility] Total Protein 7.1 6.0 - 8.0 g/dL LAB CHEMISTRY METHOD 12/04/2024 3:[facility] Albumin 4.0 3.2 - 5.0 g/dL LAB CHEMISTRY METHOD 12/04/2024 3:27 PM [facility] Total Bilirubin 0.3 0.0 - 1.4 mg/dL LAB CHEMISTRY METHOD 12/04/2024 3:27 PM [facility] Blood Venous blood specimen / Unknown Venipuncture / Unknown 12/04/2024 9:17 AM EDT 12/04/2024 9:17 AM EDT us Galina Medel [employer] LAB BLOOD ORDERABLES Final R esult [facility] [address] [place] [address], * ECG 12 lead (12/04/2024 8:57 AM EDT) Ventricular Rate ECG 71 BPM GEMUSE Atrial Rate 71 BPM GEMUSE P-R Interval 162 ms GEMUSE QRS Duration 76 ms GEMUSE Q-T Interval 392 ms GEMUSE QTc 425 ms GEMUSE P Wave [place] 56 degrees GEMUSE R [place] 5 degrees GEMUSE T [place] -5 degrees GEMUSE ECG Interpretation Normal sinus rhythm Nonspecific T wave abnormality Abnormal ECG When compared with ECG of 15-SEP-2007 10:52, No significant change was found GEMUSE 12/04/2024 8:44 AM EDT Galina Medel NP ECG ORDERABLES Final Result GEMUSE documented in this encounter Visit Diagnoses Diagnosis Coronary artery disease involving transplanted heart, unspecified vessel or lesion type, unspecified whether angina present- Primary documented in this encounter Historical Medications * This list may reflect changes made after this encounter. magnesium oxide (MAG-OX) 400 mg (241.3 elemental magnesium) tablet Take 1 tablet (400 mg total) by mouth 1 (one) time each day. 03/25/2020 levothyroxine (SYNTHROID, LEVOTHROID) 50 mcg tablet Take 1 tablet (50 mcg total) by mouth 1 (one) time each day before breakfast. 07/20/2012 lisinopril (PRINIVIL,ZESTRIL ) 40 mg tablet Take 1 tablet (40 mg total) by mouth 1 (one) time each day. 07/09/2021 coenzyme T62-xaahlug E 100-5 mg-unit capsule Take 100 mg by mouth 1 (one) time each day. rosuvastatin (CRESTOR) 40 mg tablet Take 1 tablet (40 mg total) by mouth 1 (one) time each day. 02/15/2024 NIFEdipine CC (ADALAT CC) 60 mg 24 hr tablet Take 1 tablet (60 mg total) by mouth 1 (one) time each day before breakfast. 04/10/2021 metFORMIN (GLUCOPHAGE) 500 mg tablet Take 1 tablet (500 mg total) by mouth 2 (two) times a day with meals. 07/20/2012 labetaloL (NORMODYNE) 300 mg tablet Take 1 tablet (300 mg total) by mouth 2 (two) times a day. labetaloL (NORMODYNE) 100 mg tablet Take 0.5 tablets (50 mg total) by mouth 2 (two) times a day. 10/15/2020 gabapentin (NEURONTIN) 100 mg capsule Take 1 capsule (100 mg total) by mouth at bedtime. aspirin 81 mg EC tablet Take 1 tablet (81 mg total) by mouth 1 (one) time each day. 07/20/2012 added in this encounter Care Teams Machine Hoop Maker Helper Relationship Specialty Start Date End Date Humberto Sarabia MD [address] [place] [address] PCP - General 07/20/12 documented as of this encounter
--- NOTE | 2024-12-06 10:51 | HO.NEPHOV_ITS ---
Vital Signs 12/06/24 10:54 Height 5 ft 5 in Weight 281 lb 6 oz BMI 46.8 BP 124/62 Blood Pressure Location Lt radial Position Sitting Pulse 74 Pulse Source Pulse Oximeter Pulse Oximetry (%) 97 Oxygen Delivery Method Room Air Intake Visit Reasons: 1m follow up-[facility] Electrical Superintendent Required: No Accompanied by: Self / Same As Patient Allergies acetaminophen (From Percocet) Allergy (Verified 12/06/24 10:54) Stomach Upset oxycodone (From Percocet) Allergy (Verified 12/06/24 10:54) Stomach Upset ibuprofen (From Motrin) Adverse Reaction (Mild, Verified 12/06/24 10:54) Gastrointestinal Upset HPI Comments Details: Nancy was seen in follow up for labile blood pressure. She is known to have hypertension for sometime and has been on ACEI, nifedipine as well as labetalol. She has JAI and is uses CPAP. She has no H/O hypokalemia, hypercalcemia, uncontrolled thyroid disorders, palpitation, flushing or orthostatic symptom. She has a BMI of 46. She claims to be compliant with medications. She has H/O CAD and had PCI. She denies CVA, carotid stenosis, CHF, PAD or known CRISTINA. Her renal functions are normal and denies having proteinuria. She has dyslipidemia & is on statins and has not had Doppler of renal arteries. She denies edema, headache, chest pain, SOB, PND or orthopnea. She is a diabetic and is on metformin. She had a 24 hour BPM which showed uncontrolled BP at night. She did not have any specific systemic complaint at the time of this office visit. [facility] Medical History Anemia Restless legs syndrome (RLS) Heart attack Thyroid activity decreased Hyperlipidemia Arthritis Obesity Vitamin D deficiency Hyperlipidemia Glaucoma HTN (hypertension) JAI on CPAP Diabetes Surgical History Stented coronary artery Hx of heart surgery History of carpal tunnel release Family History Father Cancer Mother Heart disease HTN (hypertension) Brother HTN (hypertension) Sister Breast cancer Family/Other No problems noted. Social History Alcohol intake: never Patient Tobacco Use Status: Former Tobacco user Review of Systems Const All systems reviewed & are unremarkable except as noted in HPI and below Physical Exam Vital Signs: Last Vital Signs Pulse 74 12/06/24 10:54 BP 124/62 12/06/24 10:54 Pulse Ox 97 12/06/24 10:54 Oxygen Delivery Method Room Air 12/06/24 10:54 BMI result Body Mass Index 46.8 Const General: comfortable and no acute distress Orientation/consciousness: patient oriented x3 HEENT Head: Yes normocephalic Mouth: Normal oral and palatal mucosa present Eyes EOM: EOMs intact bilaterally Neck Neck: Yes supple Resp Auscultation: clear to auscultation bilaterally Cardio Jugular venous distension: no JVD Rate: regular rate GI Palpation (GI): Soft to palpation Auscultation: normal bowel sounds General: Yes no CVA tenderness Back/Spine/Pelvis Back: no CVA tenderness Skin General skin exam: no rashes or lesions noted Neuro General: patient oriented x3 and moves all extremities Extrem General: Yes no pedal edema Assessment & Plan Assessment & Plan (1) HTN (hypertension): Code(s): I10 - Essential (primary) hypertension Category: Medical Qualifiers: Hypertension type: primary hypertension Qualified Code(s): I10 - Essential (primary) hypertension Plan Nancy has long standing hypertension and is on multiple BP lowering medications including ACEI, nifedipine and labetalol. She has JAI and is on CPAP. She should be on a low sodium diet and will benefit from weight loss. Her 24 hour BPM showed high readings at night. I increased her Nifedipine to 90 mg daily after which her BP is at goal. If her BP continues to be labile, I plan to do Doppler of her renal arteries. She will be a great candidate for Spironolactone as she may be having increased mineralocorticoid activity, if needed. I plan to do renin, aldosterone, cortisol and thyroid function prior to new medication, if needed. All these have been explained and answered all questions Coding Level of Care Code Est Pt Level 4 (50823) Diagnoses Primary hypertension I10 Hypertension type: primary hypertension
[2024-12-06 10:54] VITALS: BP 124/62; PULSE 74; O2SAT 97; BMI 46.8
--- OUTSIDE RECORDS SUMMARY | 2024-12-06 11:01 | XMS_ITS | Clinical Summary ---
Author Organization [facility], Address [address] [place] [address] [place] [address] Phone Care Team Providers Care Dye And Chemical Coordinator Name Role Phone Humberto Sarabia MD Primary Care Provider [phone] Allergies Active Allergy Reactions Criticality Noted Date [...] Diabetes: Visual Foot Exam 06/14/2019 Influenza Vaccine (#1) 2025 02/07/2019 Hepatitis B Vaccine Aged Out No longe r eligible based on patient's age to complete this topic Procedures Procedure Name Priority Date/Time Associated Diagnosis Comments HEMOGLOBIN A1C Routine 09/30/2017 9:44 AM EDT from Last 3 Months or Most Recently Relevant to Health Maintenance Results * (ABNORMAL) Hemoglobin A1c (09/30/2017 9:44 AM EDT) Hemoglobin A1C 6.6(H) (4-6) % [place] [address] Comment: HEMOGLOBIN A1C(%) GLUCOSE CONTROL INDEX <6% EXCELLENT 6-7% VERY GOOD 7-8% GOOD 8-10% FAIR >10% POOR Hemoglobin (Hb) A1c testing is performed by Femi Hetal-quant immunoassay. Any cause of shortened erythrocyte survival will reduce exposure of erythrocytes to glucose with a consequent decrease in Hb A1c (%). Testing performed or reported by ~[facility], ~a Service of [facility], ~[address] [place] [id number]~ Paco Owens MD, PhD, Binding Cementer French Cord 09/30/2017 9:44 AM EDT us Macrina Long MD LAB BLOOD ORDERABLES Final R esult [facility] from Last 3 Months or Most Recently Relevant to Health Maintenance Insurance [facility] [place] [id number] Care Teams Dye And Chemical Coordinator Relationship Specialty Start Date End Date Humberto Sarabia MD [address] [place] [address] PCP - General 03/13/19
--- OUTSIDE RECORDS SUMMARY | 2024-12-06 11:01 | XMS_ITS | Patient Health Record ---
Author Organization [facility] Nery arndt Reynolds Address [address] [place] [address] Care Team Providers Care Montessori Preschool Teacher Name Role Phone Humberto Sarabia Primary Care Provider Anthony Diop Unavailable [phone] Allergies Allergen (clinical drug ingredient) Drug/Non Drug Allergy documented on EMR Reaction Allergy Type Onset Date Status Motrin upset stomach Drug Allergy Act willis acetaminophen / oxycodone Percocet Unknown Drug Allergy Active Results Component Value Reference Range Notes HEMOGLOBIN A1C (GLYCOHEMOGLO BIN) Reviewed date:07/25/2024 08:29:47 AM Interpretation: Performing Lab: Notes/Report: HEMOGLOBIN A1C % (HH) 6.9 HEMOGLOBIN A1C (GLYCOHEMOGLO BIN) Reviewed date:11/19/2024 10:01:01 AM Interpretation: Performing Lab: Notes/Report: HEMOGLOBIN A1C % (HH) 7.5 Reason For Referral No Information Medications Medication SIG (Take, Route, Frequency, Duration) Notes Start Date End Date Status Tylenol Arthritis Pain 650 MG 1 tablet as needed Orally every 8 hrs Not-Taking Vitamin D High Potency 25 MCG (1000 UT) 1 capsule Orally Once a day Not-Taking NIFEdipine ER 60 MG 1 tablet Orally twice a day 02/28/2014 Active Metformin & Diet Manage Prod 500 MG Orally 02/28/2014 Active Lisinopril 40 MG 1 tablet Orally Once a day 02/28/2014 Active Levothyroxine Sodium 50 MCG 1 tablet Orally Once a day 02/28/2014 Active Latanoprost Active Labetalol HCl 300 MG take 1 tablet by mouth twice a day Oral; Duration: 90 plus 100 mg Active Ecotrin Low Strength 81 MG 1 tablet Orally Once a day Active CoQ-10 Active Extra Depth Orthopedic Shoes (1 Pair) with Customized Heat Molded Multidensity Innersoles (3 Pair) as directed Dx: NIDDM (E11.9), Hammertoe Foot Deformity (M20.41,M20.42), Preulcerative Skin Lesion(s) (L85.1) Active Night Splint AFO - L1930 1 wear at rest; Duration: 30 days Not-Taking Crestor Not-Taking Gabapentin Active hydrALAZINE HCl Not- Taking Vitamin D3 Active Chlorthalidone Not-T aking Atorvastatin Calcium 40 MG 1 tablet Orally Once a day 02/28/2014 Not-Taking Anastrozole 1 MG 1 tablet Orally Once a day 02/28/2014 Not-Taking Omeprazole 20 MG 1 capsule Orally Once a day 02/28/2014 Not-Taking Meloxicam Not-Taking Famotidine 20 MG 1 tablet at bedtime as needed Orally Once a day; Duration: 30 day(s) Not-Taking Cyclobenzaprine HCl Not-Taking Rosuvastatin Calcium Active Pepcid Complete Acti ve Trulance 3 MG 1 tablet Orally Once a day Active Xalatan 0.005 % 1 drop into affected eye in the evening Ophthalmic Once a day Not-Taking Immunizations Vaccine Route Administration Date Status Comme nts Influenza Unknown 12/21/2016 Administered Influenza Unknown 12/19/2017 Administered Influenza Unknown 12/26/2018 Administered Influenza Unknown 02/21/2024 Administered Social History Tobacco Use: Social History Observation Description Date Details (start date - stop date) Never Smoker NA - NA Tobacco use other than smoking: Question Answer Notes Are you an other tobacco user? No Tobacco Control (Standard) Question Answer Notes Tobacco use: Nonsmoker Additional Findings: Tobacco non-user Current no nsmoker AUDIT-C (Standard) Question Answer Notes Did you have a drink containing alcohol in the p ast year? No Points 0 Interpretation Negative Problems Problem Type SNOMED Code ICD Code Onset Dates Problem Status W/U Status Risk Notes Problem Acquired hammer toe of right foot (71190964854522 05) Other hammer toe(s) (acquired), right foot (M20.41) Active confirmed Response to treatment,I mprovement Problem Acquired hammer toe of left foot (41485071884845 03) Other hammer toe(s) (acquired), left foot (M20.42) Active confirmed Response to treatment,I mprovement Problem Type II diabetes mellitus without complication (654798215) Type 2 diabetes mellitus without complication (E11.9) Active confirmed Vital Signs Heart Rate 77 /min 11/19/2024 Blood pressure diastolic 60 R mm Hg 11/19/2024 Height 5ft 5 in in 11/19/2024 Blood pressure systolic 120 mm Hg 11/19/2024 Weight 272 lbs 11/19/2024 BMI 45.26 kg/m2 11/19/2024 Procedures Procedure Date Ordered Date Performed Result Body Sit e 55716-JFWOUNV NAIL, 6 OR MORE 03/21/2024 N/A 63908-MPAY SKIN LESIONS, OVER 4 03/21/2024 N/A 85101-WXEDMVI NAIL, 6 OR MORE 07/25/2024 N/A 92180-QIAD SKIN LESIONS, OVER 4 07/25/2024 N/A 60054-XRAIEJS NAIL, 6 OR MORE 11/19/2024 N/A 73243-WQGF SKIN LESIONS, OVER 4 11/19/2024 N/A Encounters Encounter Location Date Provider Diagnosis [address] [address] 03/21/2024 Anthony Cristhian Pain in right toe(s) M79.674 ; Tinea unguium B35.1 ; Pain in left toe(s) M79.675 ; Type 2 diabetes mellitus without complication E11.9 ; Other hammer toe(s) (acquired), right foot M20.41 and Other hammer toe(s) (acquired), left foot M20.[address] [address] 07/25/2024 Anthony Cristhian Pain in right toe(s) M79.674 ; Tinea unguium B35.1 ; Pain in left toe(s) M79.675 and Type 2 diabetes mellitus without complication E11.[address] [address] 11/19/2024 Anthony Cristhian Tinea unguium B35.1 ; Other hammer toe(s) (acquired), right foot M20.41 ; Pain in right toe(s) M79.674 ; Pain in left toe(s) M79.675 ; Type 2 diabetes mellitus without complication E11.9 and Other hammer toe(s) (acquired), left foot M20.42 [facility] [address] [address] 03/21/2024 [facility] [address] [address] 05/04/2024 [facility] [address] [address] 11/16/2024 [facility] [address] [place] [address] 11/19/2024 Anthony Morrow Assessments Encounter Date Diagnosis (ICD Code) Assessment Notes Treatment Notes Treatment Clinical Notes Section Notes 03/21/2024 Tinea unguium (ICD-10 - B35.1) 03/21/2024 Pain in right toe(s) (ICD-10 - M79.674) 07/25/2024 Pain in right toe(s) (ICD-10 - M79.674) 11/19/2024 Other hammer toe(s) (acquired), right foot (ICD-10 - M20.41) Patient Educated with: DIABETIC FOOT CARE INSTRUCTIONS.p df (DIABETIC FOOT CARE INSTRUCTIONS.p df) 11/19/2024 Tinea unguium (ICD-10 - B35.1) 11/19/2024 Pain in right toe(s) (ICD-10 - M79.674) 07/25/2024 Tinea unguium (ICD-10 - B35.1) 07/25/2024 Pain in left toe(s) (ICD-10 - M79.675) 03/21/2024 Pain in left toe(s) (ICD-10 - M79.675) 03/21/2024 Type 2 diabetes mellitus without complication (ICD-10 - E11.9) 07/25/2024 Type 2 diabetes mellitus without complication (ICD-10 - E11.9) 11/19/2024 Pain in left toe(s) (ICD-10 - M79.675) 11/19/2024 Type 2 diabetes mellitus without complication (ICD-10 - E11.9) 03/21/2024 Other hammer toe(s) (acquired), right foot (ICD-10 - M20.41) Response to treatment,Impro vement 03/21/2024 Other hammer toe(s) (acquired), left foot (ICD-10 - M20.42) Response to treatment,Impro vement 11/19/2024 Other hammer toe(s) (acquired), left foot (ICD-10 - M20.42) Plan Of Treatment Pending Test Test Name Order Date Hemoglobin A1c 03/20/2015 X ray : Foot, right 3V 03/09/2023 47199-AGLKKTO NAIL, 6 OR MORE 03/09/2023 68576-WZIWRPZ NAIL, 6 OR MORE 11/17/2022 00747-RRJXCFW NAIL, 6 OR MORE 09/18/2015 09934-BSZCEYF NAIL, 6 OR MORE 11/16/2021 46211-WWTCCHL NAIL, 6 OR MORE 03/14/2014 83123-ZBSVNZZ NAIL, 6 OR MORE 05/23/2014 96990-XHSJEYI NAIL, 6 OR MORE 08/08/2014 69168-TILWIWK NAIL, 6 OR MORE 09/20/2016 61985-BMRUPAD NAIL, 6 OR MORE 09/19/2017 93647-LVUBFLV NAIL, 6 OR MORE 09/21/2018 96995-OAFHMVN NAIL, 6 OR MORE 11/19/2019 34312-IBYZPIW NAIL, 6 OR MORE 11/17/2020 43130-OGXALWJ NAIL, 6 OR MORE 11/16/2023 89402-ADEDAXK NAIL, 6 OR MORE 03/21/2024 31681-FFAWWEX NAIL, 6 OR MORE 07/25/2024 23300-MCYZPNX NAIL, 6 OR MORE 11/19/2024 25303-QLCCHWA NAIL, 6 OR MORE 03/20/2015 60247-Utglcnrj Plate 09/18/2015 71207- Debride <25 sq cm 08/08/2014 40996- Debride <25 sq cm 05/23/2014 67993-GQUB SKIN LESIONS, OVER 4 11/18/19 21 30793-TKHJ SKIN LESIONS, OVER 4 11/17/19 22 21697-NWCT SKIN LESIONS, OVER 4 11/18/19 23 75935-JMUN SKIN LESIONS, OVER 4 03/09/20 23 34904-GZCH SKIN LESIONS, OVER 4 11/20/19 25 29911-GAKL SKIN LESIONS, OVER 4 07/26/19 25 32321-AHTI SKIN LESIONS, OVER 4 03/21/20 24 74326-VTAG SKIN LESIONS, OVER 4 11/16/19 24 Next Appt Details Provider Name:Anthony Morrow , 03/21/2025 08:45:00 AM, [address] [facility], [address], [place], [address], Insurance Providers Payer Name Payer Address Payer Phone Subscriber Number Group Number Insured Name Patient Relationship to Insured Coverage Start Date Coverage End Date [facility] [employer] Claims [address] [place] [address] [phone] [id number] Nancy Morales Self - patient is the insured Medical (General) History Medical History History ICD Code Back,Hip,and Knee pain Cholesterol Cancer Diabetic Glaucoma Heart disease High blood pressure Reflux Thyroid disorder Measles Chicken pox Surgical History Surgery Date(Month/Year) Heart stent 2003 breast surgery 2011
--- OUTSIDE RECORDS SUMMARY | 2024-12-06 11:01 | XMS_ITS | Patient Health Record ---
Author Organization [facility] [address] Address [address] [place] [address] Care Team Providers Care Translator Name Role Phone LOC MINA Unavailable [phone] CHANCE BARRON Unavailable [phone] Allergies Allergen (clinical drug ingredient) Drug/Non Drug Allergy documented on EMR Reaction Allergy Type Onset Date Status Motrin Unknown Drug Allergy Active acetaminophen / oxycodone Percocet Unknown Drug Allergy Active Results Component Value Reference Range Notes CBC Reviewed date:12/22/2023 12:04:22 PM Interpretation: Performing Lab: Notes/Report: Note Original Ordering Provider: LOC MINA NP [employer], a member of [address] [address] Emergency Dispatch Operator - Ilana Mcclendon MD WBC 4.7 4.8-10.8 [...] Note Original Ordering Provider: LOC MINA NP [employer], a member of [address] [address] Emergency Dispatch Operator - Ilana Mcclendon MD COMPREHENSIVE METABOLIC PANE L Reviewed date:12/22/2023 01:10:16 [...] 10-60 U/L ALK PHOS 76 42-121 U/L LIPID PROFILE Reviewed date:12/22/2023 01:10:16 PM Interpretation: Performing Lab: Notes/Report: CHOLESTEROL 135 0-200 mg/dL TRIGLYCERIDES 77 0-150 mg/dL HDL CHOLESTEROL 58 >40 mg/dL LDL CALCULATED 62 0-100 mg/dL TC-HDLC RATIO 2.3 0-4.4 mg/dL VITAMIN D, 25-HYDROXY Reviewed date:12/22/2023 01:10:16 PM Interpretation: Performing Lab: Notes/Report: VITAMIN D, 25-HYDROXY 17 30-80 ng/mL TSH Reviewed date:12/22/2023 01:10:16 PM Interpretation: Performing Lab: Notes/Report: [employer], a member of [address] [address] Emergency Dispatch Operator - Ilana Mccelndon MD TSH 1.45 0.40-4.00 uIU/ml UA WITH CULTURE IF INDICATED Reviewed date:12/22/2023 12:04:22 PM Interpretation: Performing Lab: Notes/Report: Original Ordering Provider: LOC MINA NP [place], a member of [address] [address] Emergency Dispatch Operator - Ilana Mcclendon MD GLUCOSE, (UA) NEGATIVE NEGATIVE mg/dL BILIRUBIN, URINE NEGATIVE NEGATIVE KETONE, URINE NEGATIVE NEGATIVE mg/dL SPECIFIC GRAVITY, URINE 1.018 1.003-1.030 BLOOD, URINE NEGATIVE NEGATIVE PH, URINE 5.0 5.0-8.0 PROTEIN, URINE TRACE <= TRACE mg/dl UROBILINOGEN, URINE 0.2 0.2-1.0 E.U./dL NITRITE, URINE NEGATIVE NEGATIVE LEUKOCYTE ESTERASE, URINE NEGATIVE NEGATIVE GLYCOHEMOGLOBIN PROFILE Reviewed date:12/22/2023 02:06:59 PM Interpretation: Performing Lab: Notes/Report: Original Ordering Provider: LOC MINA NP [employer], a member of [address] [address] Emergency Dispatch Operator - Ilana Mcclendon MD GLYCATED HEMOGLOBIN A1C 6.9 <6.5 % ESTIMATED AVERAGE GLUCOSE 151 COMPREHENSIVE METABOLIC PANE L Reviewed date:12/05/2024 01:53:43 PM Interpretation: Performing Lab: Notes/Report: Sodium 140 133-145 mmol/L Potassium 4.4 3.5-5.5 mmol/L Chloride 108 96-110 mmol/L CO2 25 21-32 mmol/L Anion Gap 7 3-11 Glucose 129 70-100 mg/dL BUN 12 5-25 mg/dL Creatinine 1.02 0.50-1.10 mg/dL eGFR 61 >=60 mL/min/1.73m2 Calculation based on the Chronic Kidney Disease Epidemiology Collaboration (CKD-EPI) equation refit without adjustment for race. BUN/Creatinine Ratio 11.8 Calcium 9.3 8.5-10.5 mg/dL AST (SGOT) 33 10-42 unit/L ALT (SGPT) 50 10-60 unit/L Alkaline Phosphatase 81 42-121 unit/L Total Protein 7.1 6.0-8.0 g/dL Albumin 4.0 3.2-5.0 g/dL Total Bilirubin 0.3 0.0-1.4 mg/dL LIPID PANEL WITH REFLEX TO D IRECT LDL Reviewed date:12/05/2024 01:52:20 PM Interpretation: Performing Lab: Notes/Report: Cholesterol 133 0-200 mg/dL Triglycerides 81 0-150 mg/dL HDL 59 >=40 mg/dL LDL Calculated 58 0-100 mg/dL VLDL Cholesterol [place] 16.2 Non HDL Chol. (LDL+VLDL) 74 <145 mg/dL Chol/HDL Ratio 2.3 0.0-4.4 CBC WITH AUTO DIFFERENTIAL Reviewed date:12/05/2024 01:56:09 PM Interpretation: Performing Lab: Notes/Report: WBC 5.3 4.8-10.8 K/mcL RBC 4.40 3.80-4.80 M/mcL Hemoglobin 12.6 11.5-16.0 g/dL Hematocrit 39.8 35.0-47.0 % MCV 91.3 79.0-98.0 FL MCH 28.9 27.0-32.0 pcg MCHC 31.7 32.0-37.0 g/dL RDW 15.9 11.0-15.0 % Platelets 258 130-400 K/mcL MPV 11.9 7.0-11.0 FL NRBC 0.0 <1.0 % NRBC Absolute 0.00 <0.10 K/mcL Neutrophils Relative 55.6 Lymphocytes Relative 27.5 Monocytes Relative 10.8 Eosinophils Relative 4.4 Basophils Relative 1.5 Immature Granulocytes Relative 0.2 Neutrophils Absolute 2.94 1.50-7.00 K/mcL Lymphocytes Absolute 1.45 1.00-5.00 K/mcL Monocytes Absolute 0.57 0.20-1.00 K/mcL Eosinophils Absolute 0.23 0.00-0.50 K/mcL Basophils Absolute 0.08 0.00-0.20 K/mcL Immature Granulocytes Absolute 0.01 0.00-0.03 K/mcL PPC Hemoglobin A1C Reviewed date:08/29/2024 08:33:02 AM Interpretation:6.7 Performing Lab: Notes/Report: 6.7 PAP SMEAR Reviewed date:11/08/2024 08:12:06 AM Interpretation: Performing Lab: Notes/Report: Interpretation Negative for intraepithelial lesion or malignancy General Categorization Negative Specimen Adequacy Satisfactory for evaluation, endocervical/transforma tion zone component present Pap Methodology Liquid Based Pap Test Disclaimer The Pap test is a screening test which carries an inherent false negative rate. These test results should be correlated with the patient's clinical findings and history. This Pap test was processed using an automated screening system. Technical cytopathology services provided by [facility], at [address] [place] [address], [place] [address] (CLIA # [id number]/Dmitriy Ash MD, Emergency Dispatch Operator.) Console Pap Interpretation Reported Reason For Referral No Information Medications Medication SIG (Take, Route, Frequency, Duration) Notes Start Date End Date Status Labetalol HCl 100 MG TAKE 1/2 TABLET BY MOUTH EVERY DAY; Duration: 90 Active Labetalol HCl 300 MG TAKE 1 TABLET BY MO [facility] TWICE DAILY; Duration: 90 Active FreeStyle Lite [...] 40 MG TAKE 1 TABLET BY ALENA TWICE DAILY; Duration: 90 Active Xalatan 0.005 [...] Problem Malignant neoplasm o f female breast (385395078) Malignant neoplasm of unspecified site of unspecified female breast (C50.919) Active confirmed Problem Hypothyroidism (82357584) Hypothyroidism, unspecified (E03.9) Active confirmed Problem 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) Type 2 diabetes mellitus with unspecified complications (E11.8) Active confirmed Problem Type II diabetes mellitus without complication (847981758) Type 2 diabetes mellitus without complications (E11.9) Active confirmed Problem Vitamin D deficiency (53563152) Vitamin D deficiency, unspecified (E55.9) Active confirmed Problem Hyperlipidemia (98882317) Hyperlipidemia, unspecified (E78.5) Active confirmed Problem Sleep apnea (33785428) Sleep apnea, unspecified (G47.30) Active confirmed Problem Glaucoma (34776849) Unspecified glaucoma (H40.9) Active confirmed Problem Essential hypertension (82641255) Essential (primary) hypertension (I10) Active confirmed Problem Atherosclerotic hear t disease of [place] coronary artery without angina pectoris (448980543262651) Atherosclerotic heart disease of [place] coronary artery without angina pectoris (I25.10) Active confirmed Problem Adult health examination (824064958) Encounter for general adult medical examination without abnormal findings (Z00.00) Active confirmed Problem Body mass index 40+ - severely obese (560311302) Body mass index (BMI) 45.0-49.9, adult (Z68.42) Active confirmed Problem Morbid obesity (991323121) Morbid obesity (E66.01) Active confirmed Problem Acquired hypothyroidism (231580239) Acquired hypothyroidism (E03.9) Active confirmed Problem Solitary nodule of lung (417195436) Lung nodule (R91.1) Active confirmed Problem Hyperlipoproteinemia (4256901) Acquired hyperlipoproteinemia (E78.5) Active confirmed Problem Adult health examination (108564743) Adult general medical exam (Z00.00) Active confirmed Problem Pain in wrist (25071530) Right wrist pain (M25.531) Active confirmed Problem Vitamin D deficiency (62073307) Vitamin D deficiency (E55.9) Active confirmed Problem Body mass index 40+ - severely obese (324787672) Body mass index [BMI] 45.0-49.9, adult (Z68.42) Active confirmed Problem Skin sensation disturbance (92448095) Lower extremity numbness (R20.0) Active confirmed Problem Avitaminosis D (53877274) Avitaminosis D (E55.9) Active confirmed Problem Endocrine/metabolic screening (193624574) Encounter for screening for endocrine disorder (Z13.29) Active confirmed Problem Abnormal metabolic state due to diabetes mellitus (294707008) Abnormal metabolic state due to diabetes mellitus (E11.9) Active confirmed Vital Signs Heart Rate 84 /min 08/29/2024 Oximetry 98 % 08/29/2024 Blood pressure diastolic 78 mm Hg 08/29/2024 Height 65 in 08/29/2024 Blood pressure systolic 128 mm Hg 08/29/2024 Weight 280 lbs 08/29/2024 BMI 46.59 kg/m2 08/29/2024 Encounters Encounter Location Date Provider Diagnosis [facility] [address] [address] 12/30/2023 LOC MINA Annual physical exam Z00.00 ; Encounter for screening for depression Z13.31 ; Encounter for screening for other disorder Z13.89 ; Type 2 diabetes mellitus without complications E11.9 ; Essential (primary) hypertension I10 ; Hyperlipidemia, unspecified E78.5 ; Sleep apnea, unspecified G47.30 ; Morbid obesity E66.01 ; Body mass index [BMI] 45.0-49.9, adult Z68.42 and Vitamin D deficiency E55.9 [facility] [address] [address] 04/30/2024 LOC MINA Type 2 diabetes harjit itus without complications E11.9 ; Essential (primary) hypertension I10 ; Hyperlipidemia, unspecified E78.5 ; Sleep apnea, unspecified G47.30 ; Morbid obesity E66.01 ; Body mass index [BMI] 45.0-49.9, adult Z68.42 and Vitamin D deficiency E55.9 [facility] [address] [address] 08/29/2024 LOC MINA Type 2 diabetes harjit itus without complications E11.9 ; Essential (primary) hypertension I10 ; Acquired hyperlipoproteinemia E78.5 ; Morbid obesity E66.01 ; Sleep apnea, unspecified G47.30 ; Body mass index [BMI] 45.0-49.9, adult Z68.42 ; Vitamin D deficiency E55.9 and Acquired hypothyroidism E03.9 [facility] [address] [address] 05/03/2024 CHANCE BARRON [facility] [address] [place] [address] 07/06/2024 LOC AMADEOT [facility] [address] [place] [address] 08/03/2024 LOC WALKERHOT [facility] [address] [place] [address] 09/05/2024 LOC WALK[facility]H[place] [facility] [address] [place] [address] 10/05/2024 LOC BORHOT [facility] [address] [place] [address] 11/12/2024 LOC WALK[facility] [address] [place] [address] 12/03/2024 LOC MINA Assessments Encounter Date Diagnosis (ICD Code) Assessment Notes Treatment Notes Treatment Clinical Notes Section Notes 12/30/2023 Encounter for screen ing for depression (ICD-10 - Z13.31) Patient presents for annual [facility] Acute Concerns/Proble m List: 12/30/2023 Chronic conditions [...] software and direct typing Please excuse inadvertent receiving coordinator or typing errors, or uncorrected word substitutions Although every attempt has been made by the provider to proofread this document, occasional misspellings and typographical errors may still be present Due to the previous pandemic, and the use of personal protective equipment (PPE) This may decrease voice recognition accuracy Inadvertent receiving coordinator errors may occur 12/30/2023 Annual physical exam (ICD-10 - Z00.00) Patient presents for annual [facility] Acute Concerns/Proble m List: 12/30/2023 Chronic conditions [...] software and direct typing Please excuse inadvertent receiving coordinator or typing errors, or uncorrected word substitutions Although every attempt has been made by the provider to proofread this document, occasional misspellings and typographical errors may still be present Due to the previous pandemic, and the use of personal protective equipment (PPE) This may decrease voice recognition accuracy Inadvertent receiving coordinator errors may occur 04/30/2024 Type 2 diabetes [...] software and direct typing Please excuse inadvertent receiving coordinator or typing errors, or uncorrected word substitutions Although every attempt has been made by the provider to proofread this document, occasional misspellings and typographical errors may still be present Due to the previous pandemic, and the use of personal protective equipment (PPE) This may decrease voice recognition accuracy Inadvertent receiving coordinator errors may occur 08/29/2024 Type 2 diabetes [...] software and direct typing Please excuse inadvertent receiving coordinator or typing errors, or uncorrected word substitutions Although every attempt has been made by the provider to proofread this document, occasional misspellings and typographical errors may still be present Due to the previous pandemic, and the use of personal protective equipment (PPE) This may decrease voice recognition accuracy Inadvertent receiving coordinator errors may occur 08/29/2024 Essential (primary) hypertension [...] software and direct typing Please excuse inadvertent receiving coordinator or typing errors, or uncorrected word substitutions Although every attempt has been made by the provider to proofread this document, occasional misspellings and typographical errors may still be present Due to the previous pandemic, and the use of personal protective equipment (PPE) This may decrease voice recognition accuracy Inadvertent receiving coordinator errors may occur 04/30/2024 Essential (primary) hypertension [...] software and direct typing Please excuse inadvertent receiving coordinator or typing errors, or uncorrected word substitutions Although every attempt has been made by the provider to proofread this document, occasional misspellings and typographical errors may still be present Due to the previous pandemic, and the use of personal protective equipment (PPE) This may decrease voice recognition accuracy Inadvertent receiving coordinator errors may occur 12/30/2023 Encounter for screen ing for other disorder (ICD-10 - Z13.89) Patient presents for annual [facility] Acute Concerns/Proble [...] software and direct typing Please excuse inadvertent receiving coordinator or typing errors, or uncorrected word substitutions Although every attempt has been made by the provider to proofread this document, occasional misspellings and typographical errors may still be present Due to the previous pandemic, and the use of personal protective equipment (PPE) This may decrease voice recognition accuracy Inadvertent receiving coordinator errors may occur 12/30/2023 Type 2 diabetes mellitus without complications (ICD-10 - E11.9) Patient presents for annual [facility] Acute Concerns/Proble m List: 12/30/2023 Chronic conditions [...] software and direct typing Please excuse inadvertent receiving coordinator or typing errors, or uncorrected word substitutions Although every attempt has been made by the provider to proofread this document, occasional misspellings and typographical errors may still be present Due to the previous pandemic, and the use of personal protective equipment (PPE) This may decrease voice recognition accuracy Inadvertent receiving coordinator errors may occur 04/30/2024 Hyperlipidemia, unspecified (ICD-10 [...] software and direct typing Please excuse inadvertent receiving coordinator or typing errors, or uncorrected word substitutions Although every attempt has been made by the provider to proofread this document, occasional misspellings and typographical errors may still be present Due to the previous pandemic, and the use of personal protective equipment (PPE) This may decrease voice recognition accuracy Inadvertent receiving coordinator errors may occur 08/29/2024 Acquired hyperlipoproteinemia (ICD-10 [...] software and direct typing Please excuse inadvertent receiving coordinator or typing errors, or uncorrected word substitutions Although every attempt has been made by the provider to proofread this document, occasional misspellings and typographical errors may still be present Due to the previous pandemic, and the use of personal protective equipment (PPE) This may decrease voice recognition accuracy Inadvertent receiving coordinator errors may occur 08/29/2024 Morbid obesity (ICD- [...] software and direct typing Please excuse inadvertent receiving coordinator or typing errors, or uncorrected word substitutions Although every attempt has been made by the provider to proofread this document, occasional misspellings and typographical errors may still be present Due to the previous pandemic, and the use of personal protective equipment (PPE) This may decrease voice recognition accuracy Inadvertent receiving coordinator errors may occur 04/30/2024 Sleep apnea, unspecified [...] software and direct typing Please excuse inadvertent receiving coordinator or typing errors, or uncorrected word substitutions Although every attempt has been made by the provider to proofread this document, occasional misspellings and typographical errors may still be present Due to the previous pandemic, and the use of personal protective equipment (PPE) This may decrease voice recognition accuracy Inadvertent receiving coordinator errors may occur 12/30/2023 Essential (primary) hypertension [...] software and direct typing Please excuse inadvertent receiving coordinator or typing errors, or uncorrected word substitutions Although every attempt has been made by the provider to proofread this document, occasional misspellings and typographical errors may still be present Due to the previous pandemic, and the use of personal protective equipment (PPE) This may decrease voice recognition accuracy Inadvertent receiving coordinator errors may occur 12/30/2023 Hyperlipidemia, unspecified (ICD-10 - E78.5) [facility] Acute Concerns/Proble m List: 12/30/2023 Chronic conditions [...] software and direct typing Please excuse inadvertent receiving coordinator or typing errors, or uncorrected word substitutions Although every attempt has been made by the provider to proofread this document, occasional misspellings and typographical errors may still be present Due to the previous pandemic, and the use of personal protective equipment (PPE) This may decrease voice recognition accuracy Inadvertent receiving coordinator errors may occur 04/30/2024 Morbid obesity (ICD- [...] software and direct typing Please excuse inadvertent receiving coordinator or typing errors, or uncorrected word substitutions Although every attempt has been made by the provider to proofread this document, occasional misspellings and typographical errors may still be present Due to the previous pandemic, and the use of personal protective equipment (PPE) This may decrease voice recognition accuracy Inadvertent receiving coordinator errors may occur 08/29/2024 Sleep apnea, unspecified [...] software and direct typing Please excuse inadvertent receiving coordinator or typing errors, or uncorrected word substitutions Although every attempt has been made by the provider to proofread this document, occasional misspellings and typographical errors may still be present Due to the previous pandemic, and the use of personal protective equipment (PPE) This may decrease voice recognition accuracy Inadvertent receiving coordinator errors may occur 04/30/2024 Body mass index [...] software and direct typing Please excuse inadvertent receiving coordinator or typing errors, or uncorrected word substitutions Although every attempt has been made by the provider to proofread this document, occasional misspellings and typographical errors may still be present Due to the previous pandemic, and the use of personal protective equipment (PPE) This may decrease voice recognition accuracy Inadvertent receiving coordinator errors may occur 08/29/2024 Body mass index [...] software and direct typing Please excuse inadvertent receiving coordinator or typing errors, or uncorrected word substitutions Although every attempt has been made by the provider to proofread this document, occasional misspellings and typographical errors may still be present Due to the previous pandemic, and the use of personal protective equipment (PPE) This may decrease voice recognition accuracy Inadvertent receiving coordinator errors may occur 12/30/2023 Sleep apnea, unspecified [...] software and direct typing Please excuse inadvertent receiving coordinator or typing errors, or uncorrected word substitutions Although every attempt has been made by the provider to proofread this document, occasional misspellings and typographical errors may still be present Due to the previous pandemic, and the use of personal protective equipment (PPE) This may decrease voice recognition accuracy Inadvertent receiving coordinator errors may occur 08/29/2024 Vitamin D deficiency [...] software and direct typing Please excuse inadvertent receiving coordinator or typing errors, or uncorrected word substitutions Although every attempt has been made by the provider to proofread this document, occasional misspellings and typographical errors may still be present Due to the previous pandemic, and the use of personal protective equipment (PPE) This may decrease voice recognition accuracy Inadvertent receiving coordinator errors may occur 04/30/2024 Vitamin D deficiency [...] software and direct typing Please excuse inadvertent receiving coordinator or typing errors, or uncorrected word substitutions Although every attempt has been made by the provider to proofread this document, occasional misspellings and typographical errors may still be present Due to the previous pandemic, and the use of personal protective equipment (PPE) This may decrease voice recognition accuracy Inadvertent receiving coordinator errors may occur 12/30/2023 Morbid obesity (ICD- [...] software and direct typing Please excuse inadvertent receiving coordinator or typing errors, or uncorrected word substitutions Although every attempt has been made by the provider to proofread this document, occasional misspellings and typographical errors may still be present Due to the previous pandemic, and the use of personal protective equipment (PPE) This may decrease voice recognition accuracy Inadvertent receiving coordinator errors may occur 08/29/2024 Acquired hypothyroid ism [...] software and direct typing Please excuse inadvertent receiving coordinator or typing errors, or uncorrected word substitutions Although every attempt has been made by the provider to proofread this document, occasional misspellings and typographical errors may still be present Due to the previous pandemic, and the use of personal protective equipment (PPE) This may decrease voice recognition accuracy Inadvertent receiving coordinator errors may occur 12/30/2023 Body mass index [...] software and direct typing Please excuse inadvertent receiving coordinator or typing errors, or uncorrected word substitutions Although every attempt has been made by the provider to proofread this document, occasional misspellings and typographical errors may still be present Due to the previous pandemic, and the use of personal protective equipment (PPE) This may decrease voice recognition accuracy Inadvertent receiving coordinator errors may occur 12/30/2023 Vitamin D deficiency [...] software and direct typing Please excuse inadvertent receiving coordinator or typing errors, or uncorrected word substitutions Although every attempt has been made by the provider to proofread this document, occasional misspellings and typographical errors may still be present Due to the previous pandemic, and the use of personal protective equipment (PPE) This may decrease voice recognition accuracy Inadvertent receiving coordinator errors may occur Plan Of Treatment Pending Test Test Name Order Date Hemoglobin A1c 09/20/2018 Hemoglobin A1c 06/20/2018 Lipid Panel 06/20/2018 Lipid Panel 09/20/2018 Comp. Metabolic Panel (14) 09/20/2018 Comp. Metabolic Panel (14) 06/20/2018 CBC 06/20/2018 CBC 09/20/2018 Urinalysis 09/20/2018 Urinalysis 06/20/2018 25OH VITAMIN D 06/29/2022 25OH VITAMIN D 07/04/2023 CBC (COMPLETE BLOOD COUNT) 10/05/2017 CBC (COMPLETE BLOOD COUNT) 07/04/2023 CBC (COMPLETE BLOOD COUNT) 06/29/2022 CBC (COMPLETE BLOOD COUNT) 02/05/2020 CBC (COMPLETE BLOOD COUNT) 09/01/2020 COMPREHENSIVE METABOLIC PANEL 09/01/2020 COMPREHENSIVE METABOLIC PANEL 02/05/2020 COMPREHENSIVE METABOLIC PANEL 06/29/2022 COMPREHENSIVE METABOLIC PANEL 07/04/2023 COMPREHENSIVE METABOLIC PANEL 10/05/2017 HEMOGLOBIN A1C 10/05/2017 HEMOGLOBIN A1C 07/04/2023 HEMOGLOBIN A1C 06/29/2022 HEMOGLOBIN A1C 02/05/2020 HEMOGLOBIN A1C 09/01/2020 HEMOGLOBIN A1C 03/24/2021 LIPID PANEL 09/01/2020 LIPID PANEL 02/05/2020 LIPID PANEL 06/29/2022 LIPID PANEL 07/04/2023 LIPID PANEL 10/05/2017 MAGNESIUM 02/05/2020 MICROALBUMIN, URINE 10/05/2017 TSH 07/04/2023 [...] Provider Name:LOC MINA, 12/24/2024 08:00:00 AM, [address] [facility], [facility] [address], [place], [address], Insurance Providers Payer Name Payer Address Payer Phone Subscriber Number Group Number Insured Name Patient Relationship to Insured Coverage Start Date Coverage End Date [employer] or Options [address] [place] [id number] QUANG ROBLES Self - patient is the [...]
== END 2024-12-06 11:24 | disposition home or self-care (01) ==
LOC: HO.HKAS 10:17
PROVIDERS: PCP Internal Medicine; Visit Provider Internal Medicine Nephrology
DX: I10 Essential (primary) hypertension (principal)
CPT/HCPCS: 99214

== ENCOUNTER → 2024-12-06 10:16 | Outpatient (BNVA) | payer OTHER, SELFPAY | PROVIDERS: PCP Internal Medicine; Visit Provider Internal Medicine Nephrology | DX: I10 Essential (primary) hypertension (principal); I25.10 Atherosclerotic heart disease of native coronary artery without angina pectoris; Z98.61 Coronary angioplasty status | CPT/HCPCS: 99212 ==